=== PATIENT | male | born 1970 | race Two or more races ===

== ENCOUNTER 2020-03-15 16:10 | Outpatient (REF) | payer OTHER, SELFPAY | END 2020-03-15 16:11 | disposition home or self-care (01) | LOC: HO.LAB 16:10 | PROVIDERS: Visit Provider Internal Medicine | DX: Z20.828 Contact with and (suspected) exposure to other viral communicable diseases (principal) | CPT/HCPCS: C9803; U0003 ==

== ENCOUNTER 2020-04-14 09:20 | Outpatient (REF) | payer OTHER, SELFPAY ==
[2020-04-14 10:55] LABS: Estimated Average Glucose 192 mg/dL; Hemoglobin A1c % 8.3 %
[2020-04-14 11:12] LABS: Alanine Aminotransferase 207 U/L (0-40); Albumin Level 4.3 g/dL (3.5-5.0); Alkaline Phosphatase 141 U/L (39-117); Anion Gap 13 (12-20); Aspartate Amino Transferase 100 U/L (5-37); Bilirubin Total 0.9 mg/dL (0.0-1.0); Blood Urea Nitrogen 15 mg/dL (9-16); Calcium 9.4 mg/dL (8.4-10.2); Carbon Dioxide 30 mmol/L (22-29); Chloride 104 mmol/L (96-108); Estimated Glomerular Filt Rate > 60; Glucose Fasting 192 mg/dL (60-99); Potassium 4.6 mmol/l (3.3-5.1); Sodium 142 mmol/L (135-145); Total Protein 7.8 g/dL (6.5-8.0)
== END 2020-04-14 09:21 | disposition home or self-care (01) ==
LOC: HO.LAB 09:20
PROVIDERS: PCP Internal Medicine; Visit Provider Physician Assistant
DX: R63.1 Polydipsia (principal)
CPT/HCPCS: 36415; 80053; 83036

== ENCOUNTER 2020-04-28 03:24 | Emergency (ER) | payer OTHER, SELFPAY ==
--- NOTE | 2020-04-28 03:29 | ECG_ITS ---
Test Reason : ABD PAIN Blood Pressure : / mmHG Vent. Rate : 062 BPM Atrial Rate : 062 BPM P-R Int : 164 ms QRS Dur : 096 ms QT Int : 404 ms P-R-T Axes : 046 -22 001 degrees QTc Int : 410 ms Normal sinus rhythm Inferior infarct , age undetermined Abnormal ECG No previous ECGs available Referred By: Francisca Vail Electronically Signed By:Fahad Lynn
[2020-04-28 04:09] VITALS: BP 159/98; PULSE 63; RESP 15; TEMP 36.6; O2SAT 95; BMI 38.0
--- NOTE | 2020-04-28 04:37 | ED_ITS ---
HPI - Abdominal Pain General Chief Complaint: Abdominal Pain Stated Complaint: ABD PAIN Time Seen by Provider: 04/28/20 03:27 Source: patient Mode of arrival: ambulatory History of Present Illness HPI narrative: This is a 50-year-old male with diabetes, KADEN, obesity, asthma who presents with chronic abdominal discomfort that has not changed in character for weeks/months and is not associated with diarrhea, nausea, vomiting, fevers, chills, and patient denies any shortness of breath/chest pain/palpitations. He does endorse he has a history of cholelithiasis. Patient states that he drinks 12 beers and a couple of shots in a week. Related Data Previous Rx's Medication Instructions Recorded ProAir HFA 90 mcg/actuation 2 puff PO Q6H PRN 30 Days #8.5 g NS 04/12/20 aerosol inhaler fluticasone 232 mcg-salmeterol 14 1 inh PO BID 30 Days #1 ea 04/12/20 mcg/actuation breath activated powdr nicotine (polacrilex) 2 mg gum 2 mg BUCCAL Q2H PRN 30 Days #100 ea 04/12/20 metformin 500 mg tablet 500 mg PO BID 30 Days #60 tab 04/25/20 Allergies Allergy/AdvReac Type Severity Reaction Status Date / Time pollen extracts [POLLEN] Allergy Unknown UNKNOWN Verified 04/12/20 18:28 seafood/shellfish from a Allergy Unknown hives Uncoded 06/28/19 00:00 young seasonal allergies Allergy Unknown Unknown Uncoded 04/12/20 18:28 Review of Systems Review of Systems Pertinent positives and negatives as stated in HPI and 10 point review of systems is otherwise negative. Physical Exam Vital Signs: Vital Signs: Last Vital Signs Temp 98 F 04/28/20 06:00 Pulse 59 04/28/20 06:00 Resp 15 04/28/20 06:00 BP 118/82 04/28/20 06:00 Pulse Ox 97 04/28/20 06:00 Body Mass Index 38.0 VITAL SIGNS: Reviewed. GENERAL: Well developed, well nourished, in no acute distress. HEAD: Normocephalic/atraumatic, EYES: PERRLA, EOMI EARS: Ext canals without abnormality NOSE: Nares patent bilateral OROPHARYNX: no oral lesions noted, posterior pharynx clear and non-erythematous without noted tonsillar enlargement/erythema/exudates NECK: Supple, no adenopathy LUNGS: Normal breath sounds. No adventitious sounds or accessory muscle use. SpO2<95> CARDIOVASCULAR: Regular rate and rhythm without noted murmurs ABDOMEN: Soft, non-tender, non-distended with bowel sounds. No CVA tenderness MUSCULOSKELETAL: No tenderness, deformities, or effusions noted on gross inspection. EXTREMITIES: No cyanosis, clubbing or edema. SKIN: Inspection of the skin reveals no rashes NEUROLOGIC: Alert and oriented x 4. Course Course Course Narrative: This is a 50-year-old male with history and clinical presenta tion consistent with chronic abdominal discomfort and on clinical exam no evidence appreciable hernias, however patient's body habitus limits exam. Will evaluate for evidence of infection, diabetes related etiology/cholecystitis/pancreatitis. Review of all investigations acute findings. This was communicated to the patient at bedside and he was encouraged to continue further evaluation as an ou tpatient with his primary care provider. However, he was reassured to return to the emergency department if he experiences any acute worsening of his symptoms. MDM - Abdominal Pain Lab Data Result diagrams: 04/28/20 04:31 04/28/20 04:31 Labs: Lab Results 04/28/20 04/28/20 04/28/20 Range/Units 04:31 04:31 04:31 WBC 8.2 (4.8-10.8) X10*3/uL RBC 5.44 (4.60-5.80) X10*6/uL Hgb 16.0 (14.0-18.0) g/dl Hct 46.0 (42-52) % MCV 84.6 (80-98) fL MCH 29.4 (27.0-33.0) pg MCHC 34.8 (31.0-36.0) g/dl RDW 12.7 (11.0-16.0) % Plt Count 170 (160-400) X10*3/uL MPV 10.8 (9.4-12.4) fL Immature Gran % (Auto) 0.6 H (0.0-0.4) % Neut % (Auto) 48.4 (45-73) % Lymph % (Auto) 39.9 (20-40) % Concho % (Auto) 8.3 (2-11) % Eos % (Auto) 2.4 (0-4) % Baso % (Auto) 0.4 (0-2) % Lymph # (Auto) 3.3 (1.2-4.9) X10*3/uL [place]cho # (Auto) 0.7 (0.1-1.2) X10*3/uL Eos # (Auto) 0.2 (0.0-0.4) X10*3/uL Baso # (Auto) 0.0 (0.0-0.2) X10*3/uL Abs Immat Gran (auto) 0.05 H (0.00-0.03) X10*3/uL Absolute Neuts (auto) 4.0 (2.0-8.3) X10*3/uL Absolute Nucleated RBC 0.000 (0.0-0.012) X10*3/uL Nucleated RBC % (auto) 0.0 (0.0-0.2) /100WBC Sodium 140 (135-145) mmol/L Potassium 4.0 (3.3-5.1) mmol/l Chloride 105 (96-108) mmol/L Carbon Dioxide 24 (22-29) mmol/L Anion Gap 15 (12-20) BUN 16 (9-16) mg/dL Creatinine 0.87 (0.5-1.4) mg/dL Estim Creat Clear Calc 124.1 Estimated GFR > 60 Random Glucose 260 H (60-115) mg/dL Calcium 8.8 D (8.4-10.2) mg/dL Total Bilirubin 1.0 (0.0-1.0) mg/dL AST 56 H (5-37) U/L ALT 184 H (0-40) U/L Alkaline Phosphatase 131 H (39-117) U/L Troponin I High Sens (<3.5-35.0) ng/L Total Protein 7.4 (6.5-8.0) g/dL Albumin 4.1 (3.5-5.0) g/dL Lipase 48 (8-78) U/L Urine Color Urine Appearance Urine pH (5.0-8.0) Ur Specific Sutton (1.005-1.025) Urine Protein (NEG-TRACE) MG/DL Urine Glucose (UA) (NEG) MG/DL Urine Ketones (NEG) MG/DL Urine Blood (NEG) Urine Nitrite (NEG) Ur Leukocyte Esterase (NEG) Ethyl Alcohol < 10 mg/dL 04/28/20 04/28/20 Range/Units 04:31 04:34 WBC (4.8-10.8) X10*3/uL RBC (4.60-5.80) X10*6/uL Hgb (14.0-18.0) g/dl Hct (42-52) % MCV (80-98) fL MCH (27.0-33.0) pg MCHC (31.0-36.0) g/dl RDW (11.0-16.0) % Plt Count (160-400) X10*3/uL MPV (9.4-12.4) fL Immature Gran % (Auto) (0.0-0.4) % Neut % (Auto) (45-73) % Lymph % (Auto) (20-40) % Concho % (Auto) (2-11) % Eos % (Auto) (0-4) % Baso % (Auto) (0-2) % Lymph # (Auto) (1.2-4.9) X10*3/uL Concho # (Auto) (0.1-1.2) X10*3/uL Eos # (Auto) (0.0-0.4) X10*3/uL Baso # (Auto) (0.0-0.2) X10*3/uL Abs Immat Gran (auto) (0.00-0.03) X10*3/uL Absolute Neuts (auto) (2.0-8.3) X10*3/uL Absolute Nucleated RBC (0.0-0.012) X10*3/uL Nucleated RBC % (auto) (0.0-0.2) /100WBC Sodium (135-145) mmol/L Potassium (3.3-5.1) mmol/l Chloride (96-108) mmol/L Carbon Dioxide (22-29) mmol/L Anion Gap (12-20) BUN (9-16) mg/dL Creatinine (0.5-1.4) mg/dL Estim Creat Clear Calc Estimated GFR Random Glucose (60-115) mg/dL Calcium (8.4-10.2) mg/dL Total Bilirubin (0.0-1.0) mg/dL AST (5-37) U/L ALT (0-40) U/L Alkaline Phosphatase (39-117) U/L Troponin I High Sens 3.5 (<3.5-35.0) ng/L Total Protein (6.5-8.0) g/dL Albumin (3.5-5.0) g/dL Lipase (8-78) U/L Urine Color DARK YELLOW Urine Appearance CLEAR Urine pH 5.5 (5.0-8.0) Ur Specific Sutton >= 1.030 H (1.005-1.025) Urine Protein NEG (NEG-TRACE) MG/DL Urine Glucose (UA) 250 H (NEG) MG/DL Urine Ketones NEG (NEG) MG/DL Urine Blood NEG (NEG) Urine Nitrite NEG (NEG) Ur Leukocyte Esterase NEG (NEG) Ethyl Alcohol mg/dL ECG Data Attestation: I personally reviewed and interpreted this ECG as follows: Prior ECG tracings: not available for review Interpretation: Normal sinus rhythm, HR-62, no evidence of acute ischemia, Q- waves noted in the leads 3/AVF, AZ/QRS/QTC are within normal limits. Discharge Plan Discharge Clinical Impression: Abdominal discomfort Patient Disposition: Home, Self-Care Instructions: Abdominal Pain (ED) Additional Instructions: All home medications as prescribed. Recommend starting [id number] acid control medication, such as Prilosec/Zantac. Continue follow-up with your primary care provider but do not hesitate to return to the emergency department she develops any acute worsening of your symptoms. Prescriptions: No Action metformin 500 mg tablet 500 mg PO BID 30 Days Qty: 60 RF: 1 nicotine (polacrilex) [Nicorette] 2 mg gum 2 mg buccal Q2H PRN (Reason: nicotine cravings) 30 Days Qty: 100 RF: 0 albuterol sulfate [ProAir HFA] 90 mcg/actuation HFA aerosol inhaler 2 puff PO Q6H PRN (Reason: shortness of breath or wheezing) 30 Days Qty: 8.5 RF: 1 fluticasone propion-salmeterol 232-14 mcg/actuation aerosol powdr breath activated 1 inh PO BID 30 Days Qty: 1 RF: 1 Referrals: Po,Ed Mann MD [Primary Care Provider] - 2 days (Re-evaluation for chronic abdominal discomfort and evaluated here in the emergency department without any acute findings.) COUNTS INCLUDE 234 BEDS AT THE [facility] Past Medical History Source: nursing notes reviewed Medical History Alcohol abuse Asthma Fatty liver History of renal calculi Hypercholesterolemia Mood disorder Obesity (BMI 30-39.9) Obstructive sleep apnea Tobacco abuse Vitamin D deficiency Surgical History History of removal of cyst History of tonsillectomy Family History Family History Father CAD (coronary artery disease) CVD (cardiovascular disease) Hypertension Mother Hypertension Maternal Grandfather Colon cancer Maternal Uncle Myocardial infarction Social History Social History Alcohol intake: current Alcohol intake frequency: a few times a month Alcohol type: beer and hard liquor Smoking Status: Current every day smoker Tobacco Type: Cigarette Cigarettes Per Day: 5 Use of substances other than those prescribed or required for medical reasons: No Advance Directives: No
[2020-04-28 04:40] LABS: Basophils Percent Auto 0.4 % (0-2); Eosinophils Absolute Auto 0.2 X10*3/uL (0.0-0.4); Eosinophils Percent Auto 2.4 % (0-4); Imm Gran Abs Auto 0.05 X10*3/uL (0.00-0.03); Imm Gran Pct Auto 0.6 % (0.0-0.4); Lymphocytes Absolute Auto 3.3 X10*3/uL (1.2-4.9); Lymphocytes Percent Auto 39.9 % (20-40); Mean Corpuscular HGB Conc 34.8 g/dl (31.0-36.0); Mean Corpuscular Hemoglobin 29.4 pg (27.0-33.0); Mean Corpuscular Volume 84.6 fL (80-98); Mean Platelet Volume 10.8 fL (9.4-12.4); Monocytes Absolute Auto 0.7 X10*3/uL (0.1-1.2); Monocytes Percent Auto 8.3 % (2-11); Neutrophils Percent Auto 48.4 % (45-73); Platelet Count 170 X10*3/uL (160-400); Red Blood Count 5.44 X10*6/uL (4.60-5.80); Red Cell Distribution Width 12.7 % (11.0-16.0); White Blood Count 8.2 X10*3/uL (4.8-10.8)
[2020-04-28 04:41] LABS: MANUAL DIFF FLAG NO
[2020-04-28 04:42] LABS: Glucose Urine UA 250 MG/DL (NEG); Leukocyte Esterase Urine NEG (NEG); Nitrite Urine NEG (NEG); PH 5.5 (5.0-8.0); Specific Gravity - Urine >= 1.030 (1.005-1.025); Urine Blood NEG (NEG); Urine Ketones NEG (NEG); Urine Protein NEG (NEG-TRACE)
[2020-04-28 04:49] LABS: Appearance Urine CLEAR; Color Urine DARK YELLOW
[2020-04-28 04:58] LABS: Ethanol < 10 mg/dL
[2020-04-28 05:06] LABS: Alanine Aminotransferase 184 U/L (0-40); Albumin Level 4.1 g/dL (3.5-5.0); Alkaline Phosphatase 131 U/L (39-117); Anion Gap 15 (12-20); Aspartate Amino Transferase 56 U/L (5-37); Blood Urea Nitrogen 16 mg/dL (9-16); Calcium 8.8 mg/dL (8.4-10.2); Carbon Dioxide 24 mmol/L (22-29); Chloride 105 mmol/L (96-108); Creatinine Clr Calc Pharmacy 124.1; Estimated Glomerular Filt Rate > 60; Glucose Random 260 mg/dL (60-115); Lipase 48 U/L (8-78); Sodium 140 mmol/L (135-145); Total Protein 7.4 g/dL (6.5-8.0)
--- NOTE | 2020-04-28 05:17 | CT_ITS ---
EXAMINATION: CT ABDOMEN AND PELVIS WITH CONTRAST CLINICAL INFORMATION: Abdominal pain COMPARISON: 01/24/2010 TECHNIQUE: Multidetector volumetric images were obtained from the superior aspect of the liver through the pubic symphysis following administration 85 mL of Omnipaque 350 intravenous contrast. Sagittal and coronal reformatted images were obtained on the technologist's workstation. Oral contrast: No This CT examination was performed using dose optimization techniques as appropriate, variously including the following: *Automated exposure control *Adjustment of mA and/or kV according to patient size (this includes techniques or standardized protocols for targeted exams where dose is matched to indication/reason for exam; i.e. extremities or head) *Use of iterative reconstruction technique DLP: 793 mGy-cm FINDINGS: LUNG BASES: Mild bibasilar atelectasis. LIVER, GALLBLADDER, AND BILIARY TREE: The liver is enlarged and demonstrates hypoattenuation suspicious for steatosis. No focal hepatic lesion or biliary ductal dilatation is present. Redemonstrated nodular focus at the gallbladder fundus suggesting adenomyomatosis. PANCREAS: Unremarkable. SPLEEN: Borderline enlarged. ADRENAL GLANDS: Unremarkable. KIDNEYS AND URETERS: The kidneys are normal in size, shape, and attenuation. No hydronephrosis, hydroureter, or obstructing calculi seen. No perinephric stranding. BLADDER: Unremarkable. GASTROINTESTINAL TRACT: The small and large bowel are unremarkable. The appendix is unremarkable. No free fluid or free air is seen. ABDOMINAL WALL: No significant hernia is appreciated. LYMPH NODES: Normal. VASCULAR: Unremarkable. PELVIC VISCERA: The prostate gland is enlarged, measuring 5.5 cm in transverse diameter. OSSEOUS STRUCTURES: Unremarkable. CT/CT abdomen pelvis w con IMPRESSION: No acute abnormality identified in the abdomen/pelvis. Chronic findings as noted above.
[2020-04-28 05:24] LABS: Troponin-I High Sensitivity 3.5 ng/L (<3.5-35.0)
[2020-04-28] MEDS: diphenhydrAMINE HCL 50 MG/ML VIAL 25 MG IVPUSH (05:27)
[2020-04-28] MEDS: iohexoL 350 MG/ML 100 ML INFUS..BTL 85 ML IV (05:46)
[2020-04-28 06:00] VITALS: BP 118/82; PULSE 59; RESP 15; TEMP 36.6; O2SAT 97
[2020-04-28] MEDS: Lidocaine HCl Viscous 2 % 15 ML SOLUTION 10 ML MUCOUS MEM (06:35)
[2020-04-28] MEDS: Magnesium Hydrox/Alum Hydrox 30 ML ORAL.SUSP PO (06:35)
== END 2020-04-28 06:54 | disposition home or self-care (01) ==
PROVIDERS: Emergency Provider Student in an Organized Health Care Education/Training Program; PCP Internal Medicine
DX: R10.9 Unspecified abdominal pain (principal); G47.33 Obstructive sleep apnea (adult) (pediatric); Z79.899 Other long term (current) drug therapy
CPT/HCPCS: 36415; 74177; 80053; 80320; 81003; 83690; 84484; 85025; 93005; 96374; 99284; J1200; Q9967

== ENCOUNTER 2021-03-27 08:40 | Outpatient (REF) | payer OTHER, SELFPAY ==
[2021-03-27 08:57] LABS: MANUAL DIFF FLAG NO
[2021-03-27 09:19] LABS: Basophils Percent Auto 0.3 % (0-2); Eosinophils Absolute Auto 0.4 X10*3/uL (0.0-0.4); Eosinophils Percent Auto 4.7 % (0-4); Hematocrit 49.3 % (42.0-52.0); Hemoglobin 17.3 g/dl (14.0-18.0); Imm Gran Abs Auto 0.04 X10*3/uL (0.00-0.03); Imm Gran Pct Auto 0.5 % (0.0-0.4); Lymphocytes Absolute Auto 3.1 X10*3/uL (1.2-4.9); Lymphocytes Percent Auto 40.6 % (20-40); Mean Corpuscular HGB Conc 35.1 g/dl (31.0-36.0); Mean Corpuscular Hemoglobin 29.6 pg (27.0-33.0); Mean Corpuscular Volume 84.4 fL (80.0-98.0); Mean Platelet Volume 11.2 fL (9.4-12.4); Monocytes Absolute Auto 0.7 X10*3/uL (0.1-1.2); Monocytes Percent Auto 9.2 % (2-11); Neutrophils Absolute Auto 3.5 x10*3/uL (2.0-8.3); Neutrophils Percent Auto 44.7 % (45-73); Platelet Count 221 X10*3/uL (160-400); Red Blood Count 5.84 X10*6/uL (4.60-5.80); Red Cell Distribution Width 12.7 % (11.0-16.0); White Blood Count 7.7 X10*3/uL (4.8-10.8)
[2021-03-27 09:29] LABS: Estimated Average Glucose 246 mg/dL; Hemoglobin A1c % 10.2 %
[2021-03-27 09:53] LABS: Alanine Aminotransferase 179 U/L (0-40); Albumin Level 4.2 g/dL (3.5-5.0); Alkaline Phosphatase 127 U/L (39-117); Anion Gap 14 (12-20); Aspartate Amino Transferase 59 U/L (5-37); Bilirubin Total 0.7 mg/dL (0.0-1.0); Blood Urea Nitrogen 15 mg/dL (9-16); Calcium 9.9 mg/dL (8.4-10.2); Carbon Dioxide 27 mmol/L (22-29); Chloride 104 mmol/L (96-108); Cholesterol 271 mg/dL; Estimated Glomerular Filt Rate > 60; Glucose Random 238 mg/dL (60-115); HDL Cholesterol 30 mg/dL; Potassium 4.2 mmol/L (3.3-5.1); Sodium 141 mmol/L (135-145); Total Protein 7.6 g/dL (6.5-8.0); Triglycerides 736 mg/dL
[2021-03-27 10:09] LABS: Free T4 (Free Thyroxine) 1.07 ng/dL (0.71-1.85); Prostate Specific Antigen Scr 0.86 ng/mL (<0.05-4.0); Thyroid Stimulating Hormone 1.82 uIU/mL (0.32-4.0)
[2021-03-27 10:23] LABS: Folate 14.3 ng/mL (> or = 4.0); Vitamin B12 882 pg/mL (200-900)
[2021-03-27 11:49] LABS: Creatinine Urine 356.95 mg/dL; Microalbum/Creatinine Ratio Ur 27.4 ug/mg cr
== END 2021-03-27 08:41 | disposition home or self-care (01) ==
LOC: HO.LAB 08:40
PROVIDERS: Nurse Practitioner Acute Care; PCP Internal Medicine; Visit Provider Internal Medicine
DX: E11.65 Type 2 diabetes mellitus with hyperglycemia (principal); E78.00 Pure hypercholesterolemia, unspecified; E11.9 Type 2 diabetes mellitus without complications; Z12.5 Encounter for screening for malignant neoplasm of prostate
CPT/HCPCS: 36415; 80053; 80061; 82043; 82607; 82746; 83036; 84153; 84439; 84443; 85025

== ENCOUNTER 2022-04-29 07:18 | Outpatient (REF) | payer OTHER, SELFPAY ==
[2022-04-29 07:37] LABS: MANUAL DIFF FLAG NO
[2022-04-29 08:05] LABS: Basophils Percent Auto 0.4 % (0-2); Eosinophils Absolute Auto 0.3 X10*3/uL (0.0-0.4); Eosinophils Percent Auto 3.4 % (0-4); Hematocrit 45.3 % (42.0-52.0); Hemoglobin 15.6 g/dl (14.0-18.0); Imm Gran Abs Auto 0.04 X10*3/uL (0.00-0.03); Imm Gran Pct Auto 0.5 % (0.0-0.4); Lymphocytes Percent Auto 36.3 % (20-40); Mean Corpuscular HGB Conc 34.4 g/dl (31.0-36.0); Mean Corpuscular Hemoglobin 28.7 pg (27.0-33.0); Mean Corpuscular Volume 83.4 fL (80.0-98.0); Mean Platelet Volume 10.6 fL (9.4-12.4); Monocytes Absolute Auto 1.1 X10*3/uL (0.1-1.2); Monocytes Percent Auto 12.9 % (2-11); Neutrophils Absolute Auto 3.9 x10*3/uL (2.0-8.3); Neutrophils Percent Auto 46.5 % (45-73); Platelet Count 283 X10*3/uL (160-400); Red Blood Count 5.43 X10*6/uL (4.60-5.80); Red Cell Distribution Width 12.6 % (11.0-16.0); White Blood Count 8.3 X10*3/uL (4.8-10.8)
[2022-04-29 08:59] LABS: Creatinine Urine 218.53 mg/dL; Microalbum/Creatinine Ratio Ur 35.6 ug/mg cr
[2022-04-29 09:01] LABS: Alanine Aminotransferase 107 U/L (0-40); Albumin Level 3.9 g/dL (3.5-5.0); Alkaline Phosphatase 114 U/L (39-117); Anion Gap 14 (12-20); Aspartate Amino Transferase 53 U/L (5-37); Bilirubin Total 0.7 mg/dL (0.0-1.0); Blood Urea Nitrogen 10 mg/dL (9-16); Calcium 9.9 mg/dL (8.4-10.2); Carbon Dioxide 25 mmol/L (22-29); Chloride 107 mmol/L (96-108); Cholesterol 178 mg/dL; Estimated Glomerular Filt Rate > 60; Glucose Random 197 mg/dL (60-115); HDL Cholesterol 29 mg/dL; LDL Cholesterol Calculated 85 mg/dl; Sodium 142 mmol/L (135-145); Total Protein 7.5 g/dL (6.5-8.0); Triglycerides 322 mg/dL
[2022-04-29 09:32] LABS: Folate 13.3 ng/mL (> or = 4.0); Free T4 (Free Thyroxine) 1.03 ng/dL (0.71-1.85); Prostate Specific Antigen Scr 1.12 ng/mL (<0.05-4.0); Thyroid Stimulating Hormone 1.78 uIU/mL (0.32-4.0); Vitamin B12 893 pg/mL (200-900)
== END 2022-04-29 07:19 | disposition home or self-care (01) ==
LOC: HO.LAB 07:18
PROVIDERS: PCP Internal Medicine; Visit Provider Internal Medicine
DX: Z12.5 Encounter for screening for malignant neoplasm of prostate (principal); E11.65 Type 2 diabetes mellitus with hyperglycemia; E78.00 Pure hypercholesterolemia, unspecified
CPT/HCPCS: 36415; 80053; 80061; 82043; 82607; 82746; 84153; 84439; 84443; 85025

== ENCOUNTER 2022-09-27 07:24 | Outpatient (REF) | payer OTHER, SELFPAY ==
[2022-09-27 07:40] LABS: MANUAL DIFF FLAG NO
[2022-09-27 08:15] LABS: Basophils Percent Auto 0.3 % (0-2); Eosinophils Absolute Auto 0.3 X10*3/uL (0.0-0.4); Eosinophils Percent Auto 3.2 % (0-4); Hematocrit 48.2 % (42.0-52.0); Hemoglobin 16.8 g/dl (14.0-18.0); Imm Gran Abs Auto 0.03 X10*3/uL (0.00-0.03); Imm Gran Pct Auto 0.3 % (0.0-0.4); Lymphocytes Absolute Auto 3.2 X10*3/uL (1.2-4.9); Lymphocytes Percent Auto 31.7 % (20-40); Mean Corpuscular HGB Conc 34.9 g/dl (31.0-36.0); Mean Corpuscular Hemoglobin 29.9 pg (27.0-33.0); Mean Corpuscular Volume 85.8 fL (80.0-98.0); Mean Platelet Volume 10.1 fL (9.4-12.4); Monocytes Percent Auto 10.3 % (2-11); Neutrophils Absolute Auto 5.5 x10*3/uL (2.0-8.3); Neutrophils Percent Auto 54.2 % (45-73); Platelet Count 234 X10*3/uL (160-400); Red Blood Count 5.62 X10*6/uL (4.60-5.80)
[2022-09-27 08:28] LABS: Estimated Average Glucose 94 mg/dL; Hemoglobin A1C 137.3436 umol/L; Hemoglobin A1c % 4.9 %
[2022-09-27 09:23] LABS: Creatinine Urine 163.44 mg/dL; Microalbum/Creatinine Ratio Ur 9.1 ug/mg cr
[2022-09-27 09:26] LABS: Alanine Aminotransferase 44 U/L (0-40); Albumin Level 4.2 g/dL (3.5-5.0); Alkaline Phosphatase 80 U/L (39-117); Anion Gap 13 (12-20); Aspartate Amino Transferase 27 U/L (5-37); Bilirubin Total 1.1 mg/dL (0.0-1.0); Blood Urea Nitrogen 15 mg/dL (9-16); Carbon Dioxide 25 mmol/L (22-29); Chloride 109 mmol/L (96-108); Cholesterol 222 mg/dL; Estimated Glomerular Filt Rate > 60; Glucose Random 108 mg/dL (60-115); HDL Cholesterol 35 mg/dL; LDL Cholesterol Calculated 148 mg/dl; Potassium 4.6 mmol/L (3.3-5.1); Sodium 142 mmol/L (135-145); Total Protein 7.8 g/dL (6.5-8.0); Triglycerides 195 mg/dL
[2022-09-27 09:44] LABS: Free T4 (Free Thyroxine) 0.95 ng/dL (0.71-1.85); Thyroid Stimulating Hormone 1.39 uIU/mL (0.32-4.0)
[2022-09-27 09:56] LABS: Folate 12.3 ng/mL (> or = 4.0); Vitamin B12 554 pg/mL (200-900)
== END 2022-09-27 07:25 | disposition home or self-care (01) ==
LOC: HO.LAB 07:24
PROVIDERS: PCP Internal Medicine; Visit Provider Internal Medicine
DX: E11.65 Type 2 diabetes mellitus with hyperglycemia (principal); E78.00 Pure hypercholesterolemia, unspecified
CPT/HCPCS: 36415; 80053; 80061; 82043; 82607; 82746; 83036; 84153; 84439; 84443; 85025

== ENCOUNTER 2022-09-28 10:06 | Emergency (ER) | payer OTHER, SELFPAY ==
[2022-09-28 10:12] VITALS: BP 136/98; PULSE 83; RESP 18; TEMP 36.6; O2SAT 98; BMI 31.9
--- NOTE | 2022-09-28 10:40 | ED.GENADULT ---
HPI - General Adult General Chief complaint: General Medical Stated complaint: ear and throat pain Time Seen by Provider: 09/28/22 10:30 Source: patient Mode of arrival: ambulatory Limitations: no limitations History of Present Illness HPI narrative: Patient is a 52-year-old male with history of tonsillectomy, hypertension, asthma, T2 dm, smoking, GERD presenting to the emergency department with 2 days of worsening sore throat. Patient states pain is all on left side and has began to radiate to his left ear. Has taken ibuprofen at home with little relief. Denies fevers. Denies cough or shortness of breath. Denies any low congestion or headache. Reports increased pain with swallowing. MD complaint: sore throat Onset (ago): day(s) Location: neck Radiation: other (left ear) Severity scale (1-10): 8 Quality: burning Pain Consistency: constant Relieving factors: none Exacerbating factors: eating and movement Associated symptoms: denies other symptoms Treatments prior to arrival: NSAID Related Data Previous Rx's Medication Instructions Recorded flash glucose scanning reader #1 ea 05/12/20 (FreeStyle Ole 14 Day Antelope) nicotine (polacrilex) 2 mg gum 2 mg PO Q2H PRN for nicotine 07/10/20 cravings #100 caps flash glucose sensor (FreeStyle #6 kits 04/05/21 Ole 14 Day Sensor kit) blood sugar diagnostic (FreeStyle #100 ea 04/27/21 Lite Strips) blood-glucose meter (FreeStyle #1 ea 04/27/21 Lite Meter kit) dulaglutide 1.5 mg/0.5 mL 1.5 mg (0.5 mL) subcut QWEEK 30 04/26/22 subcutaneous pen injector days #2 mL famotidine 20 mg tablet (Pepcid) 20 mg PO BEDTIME 90 days #90 tabs 04/26/22 lancets 28 gauge (FreeStyle #100 ea 04/26/22 Lancets) lisinopril 5 mg tablet 5 mg PO DAILY #90 tabs 04/26/22 metformin 500 mg tablet 1,000 mg PO BID 90 days #360 tabs 04/26/22 fluticasone 250 mcg-salmeterol 50 1 inh inhalation BID #60 ea 06/28/22 mcg/dose blistr powdr for inhalation (Advair Diskus) albuterol sulfate 90 mcg/actuation 2 puff PO Q6H PRN for wheezing #18 08/14/22 aerosol inhaler (Ventolin HFA) ea Allergies Allergy/AdvReac Type Severity Reaction Status Date / Time seafood Allergy Severe Hives Verified 09/28/22 10:12 pollen extracts [POLLEN] Allergy Unknown UNKNOWN Verified 09/28/22 10:12 seasonal allergies Allergy Unknown Unknown Uncoded 09/28/22 10:12 Review of Systems Review of Systems: As per HPI. Yes all other systems are reviewed and are negative Constitutional: Constitutional: Reports as per HPI PMFSH Past Medical History Medical History Alcohol abuse Asthma DMII (diabetes mellitus, type 2) Fatty liver History of renal calculi Hypercholesterolemia Mood disorder Obesity (BMI 30-39.9) Obstructive sleep apnea Tobacco abuse Vitamin D deficiency Surgical History History of removal of cyst History of tonsillectomy Family History Family History Father CAD (coronary artery disease) CVD (cardiovascular disease) Hypertension Mother Hypertension Maternal Grandfather Colon cancer Maternal Uncle Myocardial infarction Social History Social History Housing: Apartment Alcohol intake: current Alcohol intake frequency: a few times a month Alcohol type: beer and hard liquor Patient Tobacco Use Status: Current everyday Tobacco user Tobacco use type: Cigarette Cigarettes Per Day: 8 Years Smoked: 6- cigarettes a day once a week e-Cigarette/Vaping Use: Never Used Second Hand Smoke Exposure: No Advance Directives: No Advance Directives Information Provided: Yes Current occupational status: employed Cognitive needs: No Hearing needs: No Vision needs: No Physical Exam ED Vital Signs: Vital Signs - 24 hr 09/28/22 10:12 09/28/22 13:43 09/28/22 15:22 Temperature 98 F 97.5 F Pulse Rate 83 76 59 Respiratory Rate 18 18 17 Blood Pressure 136/98 H 140/89 H 99/69 Pulse Oximetry 98 96 96 Oxygen Delivery Method Room Air Room Air Room Air BMI result Body Mass Index 31.9 Vital signs have been reviewed and appear to be correct. Blood pressure slightly elevated, hx of HTN. Heart rate normal. Respiratory rate normal. Temperature normal. Oxygen saturation normal. Const General: cooperative, healthy appearing and no acute distress Orientation/consciousness: oriented to person, oriented to place, oriented to time and patient oriented x3 Limitations: no limitations HENMT Head: Yes normocephalic and Yes atraumatic Ears: external ears normal, TM's normal bilaterally and EAC's normal General nose exam: Normal external nose present Face and sinus: Yes face symmetric Mouth: oropharynx normal, moist mucous membranes and tongue abnormal with white coating Throat: Yes uvula midline, Yes posterior oropharynx abnormal (left peritonsillar edema), Yes tonsils absent and No uvular edema Eyes Pupils: Equal, round and reactive pupils present Neck Neck: Yes normal visual inspection, Yes supple and Yes submandibular swelling (left) Lymphatic: lymphadenopathy left submandibular soft and tender Resp Effort & Inspection: normal respiratory effort and able to speak in complete sentences Auscultation: clear to auscultation bilaterally Cardio Rate: regular rate Rhythm: regular rhythm Heart sounds: S1 normal heart sound present and S2 normal heart sound present GI Palpation (GI): Soft to palpation and nontender Auscultation: normoactive bowel sounds General: Yes no CVA tenderness Back/Spine/Pelvis Back: no CVA tenderness Skin General skin exam: elasticity normal and turgor normal Neuro General: oriented to person, oriented to place, oriented to time, patient oriented x3, moves all extremities, no focal motor deficits and CN's II-XI intact bilaterally Cranial nerves: Yes Equal, round and reactive pupils present Cognition (Neuro): normal cognition Extrem General: Yes full ROM, Yes no pedal edema and Yes no calf tenderness Psych Mental Status: mental status grossly normal Affect: normal affect Thought process: Normal thought process present Medications Administered Discontinued Medications Generic Name Dose Route Start Last Admin Trade Name Freq PRN Reason Stop Dose Admin Iohexol 100 ml 09/28/22 11:40 09/28/22 11:41 Iohexol 350 Mg/Ml 100 Ml Infus..Btl IV 09/28/22 11:41 60 ml ONCE ONE Administration Ketorolac Tromethamine 30 mg 09/28/22 13:00 09/28/22 13:03 Ketorolac Tromethamine 30 Mg/Ml Vial IM 09/28/22 13:01 30 mg ONCE ONE Administration Medical Decision Making Medical Decision Making [facility] Narrative: Patient is a 52-year-old male with history of tonsillectomy, hypertension, asthma, T2 dm, smoking, GERD presenting to the emergency department with 2 days of worsening sore throat. On exam patient is awake, A+Ox3, BP mildly elevated, hx of HTN, VS otherwise WNL, afebrile, normal neurological exam without focal deficits, edema to left posterior oropharynx, left submandibular lymphadenopathy and tenderness, voice muffled, patient managing secretions, no uvula deviation. Given reported symptoms and physical exam findings, differential includes peritonsillar abscess, Clark's angina, strep pharyngitis, viral pharyngitis. Unlikely epiglottitis, mono. Labs notable for leukocytosis compared to labs drawn yesterday. CT notable for small left peritonsillar abscess and probable small retropharyngeal effusion. My interpretation is in agreement with the radiologist's interpretation. 13:15 Spoke with [facility] transfer line, they are unable to accept transfer at this time. 13:25 Spoke with [facility] transfer line, they are unable to accept transfer at this time due to capacity. 13:30 Spoke with [facility] ED, awaiting return call. 14:00 No return call from [facility] yet, will call [facility] transfer line. 16:11 Spoke with Mrau at [facility], patient accepted to the emergency department, Dr. Abundio Mishra is accepting MD. Patient updated on plan. [facility] notified of transfer. 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 Leukocytosis since labs drawn yesterday. 09/28/22 11:00 09/28/22 11:00 Labs: Lab Results 09/28/22 09/28/22 09/28/22 Range/Units 10:19 10:19 11:00 WBC 13.8 H (4.8-10.8) X10*3/uL RBC 6.01 H (4.60-5.80) X10*6/uL Hgb 17.9 (14.0-18.0) g/dl Hct 51.0 (42.0-52.0) % MCV 84.9 (80.0-98.0) fL MCH 29.8 (27.0-33.0) pg MCHC 35.1 (31.0-36.0) g/dl RDW 12.8 (11.0-16.0) % Plt Count 250 (160-400) X10*3/uL MPV 9.8 (9.4-12.4) fL Immature Gran % (Auto) 0.4 (0.0-0.4) % Neut % (Auto) 66.1 (45-73) % Lymph % (Auto) 22.0 (20-40) % Spalding % (Auto) 10.3 (2-11) % Eos % (Auto) 0.9 (0-4) % Baso % (Auto) 0.3 (0-2) % Lymph # (Auto) 3.0 (1.2-4.9) X10*3/uL [place]ding # (Auto) 1.4 H (0.1-1.2) X10*3/uL Eos # (Auto) 0.1 (0.0-0.4) X10*3/uL Baso # (Auto) 0.0 (0.0-0.2) X10*3/uL Abs Immat Gran (auto) 0.05 H (0.00-0.03) X10*3/uL Absolute Neuts (auto) 9.1 H (2.0-8.3) x10*3/uL Absolute Nucleated RBC 0.000 (0.0-0.012) X10*3/uL Nucleated RBC % (auto) 0.0 (0.0-0.2) /100WBC Sodium (135-145) mmol/L Potassium (3.3-5.1) mmol/L Chloride (96-108) mmol/L Carbon Dioxide (22-29) mmol/L Anion Gap (12-20) BUN (9-16) mg/dL Creatinine (0.5-1.4) mg/dL Estim Creat Clear Calc Estimated GFR Random Glucose (60-115) mg/dL Calcium (8.4-10.2) mg/dL COVID-19 (JUANCARLOS) Negative (Negative) COVID-19 Clin Com See Note S. pyogenes GrpA LORNA Negative (Negative) 09/28/22 Range/Units 11:00 WBC (4.8-10.8) X10*3/uL RBC (4.60-5.80) X10*6/uL Hgb (14.0-18.0) g/dl Hct (42.0-52.0) % MCV (80.0-98.0) fL MCH (27.0-33.0) pg MCHC (31.0-36.0) g/dl RDW (11.0-16.0) % Plt Count (160-400) X10*3/uL MPV (9.4-12.4) fL Immature Gran % (Auto) (0.0-0.4) % Neut % (Auto) (45-73) % Lymph % (Auto) (20-40) % Spalding % (Auto) (2-11) % Eos % (Auto) (0-4) % Baso % (Auto) (0-2) % Lymph # (Auto) (1.2-4.9) X10*3/uL Spalding # (Auto) (0.1-1.2) X10*3/uL Eos # (Auto) (0.0-0.4) X10*3/uL Baso # (Auto) (0.0-0.2) X10*3/uL Abs Immat Gran (auto) (0.00-0.03) X10*3/uL Absolute Neuts (auto) (2.0-8.3) x10*3/uL Absolute Nucleated RBC (0.0-0.012) X10*3/uL Nucleated RBC % (auto) (0.0-0.2) /100WBC Sodium 140 (135-145) mmol/L Potassium 4.1 (3.3-5.1) mmol/L Chloride 108 (96-108) mmol/L Carbon Dioxide 23 (22-29) mmol/L Anion Gap 13 (12-20) BUN 13 (9-16) mg/dL Creatinine 0.92 (0.5-1.4) mg/dL Estim Creat Clear Calc 105.1 Estimated GFR > 60 Random Glucose 116 H (60-115) mg/dL Calcium 10.4 H (8.4-10.2) mg/dL COVID-19 (JUANCARLOS) (Negative) COVID-19 Clin Com S. pyogenes GrpA LORNA (Negative) Independent Interpretation I performed an independent interpretation of an: CT Scan Interpretation: Small left peritonsillar abscess Radiology Impression Discussion of test interpretation with radiology: I have reviewed the radiologist's reading. Radiologist Impression: CT/CT soft tissue neck w IV con IMPRESSION: Imaging findings consistent with a small left peritonsillar abscess. Surrounding phlegmonous changes and inflammatory enlargement of the left oropharyngeal wall. Extensive submucosal edema along the left pharyngeal wall and left lateral wall of the supraglottic airway. Probable small retropharyngeal effusion, without mass effect or peripheral enhancement. Mild reactive left-sided cervical adenopathy. External Record Review External record reviewed: Inpatient record, Office record and Outpatient record Prescription Management I considered prescription management with: Pain Medication Critical Care Time Critical Care Time Critical Care Time: Yes Total Critical Care Time: 45 Attestation: I have personally provided critical care time exclusive of time spent on separately billable procedures. Time includes review of lab data, radiology results, discussion with consultants, and monitoring for potential decompensation. Intervention performed as documented. Discharge Plan Discharge Clinical Impression: Abscess, peritonsillar Patient Disposition: [facility] Transfer Details: [facility] ED, Dr. Abundio Mishra accepting Prescriptions: No Action nicotine (polacrilex) 2 mg gum 2 mg PO Q2H PRN (Reason: for nicotine cravings) Qty: 100 2RF (DME) FreeStyle Ole 14 Day Sensor Kit See Rx Instructions .ROUTE .MEDSUPPLY Qty: 6 3RF Rx Instructions: As directed fluticasone propion-salmeterol [Advair Diskus] 250-50 mcg/dose blister with device 1 inh inhalation BID Qty: 60 11RF albuterol sulfate [Ventolin HFA] 90 mcg/actuation HFA aerosol inhaler 2 puff PO Q6H PRN (Reason: for wheezing) Qty: 18 2RF (DME) FreeStyle Ole 14 Day Antelope Misc See Rx Instructions .ROUTE .MEDSUPPLY Qty: 1 0RF Rx Instructions: As directed (DME) FreeStyle Lite Strips Strip See Rx Instructions .ROUTE .MEDSUPPLY Qty: 100 3RF Rx Instructions: As directed check the BS QD (DME) blood-glucose meter [FreeStyle Lite Meter] Kit See Rx Instructions .ROUTE .MEDSUPPLY Qty: 1 0RF Rx Instructions: As directed dulaglutide 1.5 mg/0.5 mL pen injector 1.5 mg subcut QWEEK 30 Days Qty: 2 3RF famotidine [Pepcid] 20 mg tablet 20 mg PO BEDTIME 90 Days Qty: 90 1RF lisinopril 5 mg tablet 5 mg PO DAILY Qty: 90 0RF metformin 500 mg tablet 1,000 mg PO BID 90 Days Qty: 360 2RF (DME) lancets [FreeStyle Lancets] 28 gauge misc See Rx Instructions .ROUTE .MEDSUPPLY Qty: 100 3RF Rx Instructions: As directed check BS QD
--- NOTE | 2022-09-28 13:10 | PC.NURSE ---
pt medicated per MAY for 01/07 throat pain
[2022-09-28 13:43] VITALS: BP 140/89; PULSE 76; RESP 18; O2SAT 96
[2022-09-28 15:22] VITALS: BP 99/69; PULSE 59; RESP 17; TEMP 36.4; O2SAT 96
--- NOTE | 2022-09-28 16:49 | PC.NURSE ---
rec call from Sourav aj [place],still attempting to locate [facility] for transport to [facility]
[2022-09-28 17:49] VITALS: BP 117/76; PULSE 59; RESP 17; TEMP 37.1; O2SAT 96
--- NOTE | 2022-09-28 18:25 | PC.NURSE ---
report given to Kia COLE at [facility] ED pt transferred via memo [facility]
== END 2022-09-28 18:28 | disposition short-term general hospital (02) ==
PROVIDERS: Emergency Provider Emergency Medicine Emergency Medical Services; PCP Internal Medicine
DX: J36 Peritonsillar abscess (principal); Z20.822 Contact with and (suspected) exposure to COVID-19; E11.9 Type 2 diabetes mellitus without complications; I10 Essential (primary) hypertension; E78.00 Pure hypercholesterolemia, unspecified; F17.210 Nicotine dependence, cigarettes, uncomplicated; Z79.899 Other long term (current) drug therapy
CPT/HCPCS: 36415; 70491; 80048; 85025; 87635; 87651; 96372; 99285; J1885; Q9967

== ENCOUNTER 2023-07-29 21:01 | Inpatient (IN) | payer OTHER, SELFPAY ==
[2023-07-29 21:09] VITALS: BP 136/90; BP 159/101; PULSE 95; RESP 18; TEMP 36.6; O2SAT 95; BMI 32.5
--- NOTE | 2023-07-29 21:35 | ED_ITS ---
HPI - Psych General Chief Complaint: Psychiatric Symptoms Stated Complaint: SI W/ PLAN Time Seen by Provider: 07/29/23 21:20 Source: patient Mode of arrival: ambulatory Limitations: no limitations History of Present Illness HPI Narrative: Patient comes to the emergency room via EMS and PD on board. According to the patient, he had an argument with his , they have been for 27 years and patient states that she does not love them anymore. Patient states that he wanted to test her reaction to a suicidal threat. Patient states that he drank alcohol, pull his gun out without any bullets, pointed to his head. Patient has called 911. Patient states that he would not have shot himself or hurt her in any way. It was just a test according to the patient. Related Data Previous Rx's ?Medication ?Instructions ?Recorded flash glucose scanning reader #1 ea 05/12/20 (FreeStyle Ole 14 Day Rumsey) nicotine (polacrilex) 2 mg gum 2 mg PO Q2H PRN for nicotine 07/10/20 cravings #100 caps flash glucose sensor (FreeStyle #6 kits 04/05/21 Ole 14 Day Sensor kit) blood sugar diagnostic (FreeStyle #100 ea 04/27/21 Lite Strips) blood-glucose meter (FreeStyle #1 ea 04/27/21 Lite Meter kit) lancets 28 gauge (FreeStyle #100 ea 04/26/22 Lancets) fluticasone 250 mcg-salmeterol 50 1 inh inhalation BID #60 ea 06/28/22 mcg/dose blistr powdr for inhalation (Advair Diskus) famotidine 20 mg tablet (Pepcid) 20 mg PO BEDTIME 90 days #90 tabs 10/18/22 lisinopril 5 mg tablet 5 mg PO DAILY #90 tabs 10/18/22 albuterol sulfate 90 mcg/actuation 2 puff PO Q6H PRN for wheezing #18 12/16/22 aerosol inhaler (Ventolin HFA) ea dulaglutide 1.5 mg/0.5 mL 1.5 mg (0.5 mL) subcut QWEEK 30 12/16/22 subcutaneous pen injector days #2 mL metformin 500 mg tablet 1,000 mg (2 x 500 mg) PO BID 90 01/16/23 days #360 tabs Allergies Allergy/AdvReac Type Severity Reaction Status Date / Time seafood Allergy Severe Hives Verified 07/29/23 21:14 pollen extracts [POLLEN] Allergy Unknown UNKNOWN Verified 07/29/23 21:14 seasonal allergies Allergy Unknown Unknown Uncoded 07/29/23 21:14 Review of Systems Review of Systems: Constitutional : No Weight loss, No Fever, No Chills, No Night Sweats, No Fatigue, No Malaise ENT/Mouth : No Hearing loss, No Ear Pain, No Nasal Congestion, No Sinus Pain, No Hoarseness, No sore throat, No Rhinorrhea, No Swallowing Difficulty Eyes: No Eye Pain, No Swelling, No Redness, No Foreign Body, No Discharge, No Vision Changes Cardiovascular : No Chest Pain, No SOB, No Dyspnea on Exertion, No Orthopnea, No Edema, No Palpitations Respiratory : No Cough, No Sputum, No Wheezing, No Smoke Exposure, No Dyspnea Gastrointestinal : No Nausea, No Vomiting, No Diarrhea, No Constipation, No abdominal Pain, No Hematochezia, No Melena Genitourinary : no irregular bleeding, No Dysuria, No Urinary Frequency, No Hematuria, No Urinary Incontinence, No Urgency, No Flank Pain, No Urinary Flow Changes, No Hesitancy Musculoskeletal : No joint pain, No Myalgias, No Joint Swelling Skin : No Skin Lesions, No rash Neuro : No Weakness, No Numbness, No Paresthesias, No Loss of Consciousness, No Dizziness, No Headache Psych : No Anxiety/Panic, No Depression, No SI/HI/AH/VH, maritial anxious, suicide threat Heme/Lymph: No Bruising, No Bleeding,No Lymphadenopathy Endocrine : No Polyuria, No Polydipsia, No Temperature Intolerance [facility] Past Medical History Medical History DMII (diabetes mellitus, type 2) History of renal calculi Obstructive sleep apnea Fatty liver Vitamin D deficiency Obesity (BMI 30-39.9) Mood disorder Asthma Hypercholesterolemia Alcohol abuse Tobacco abuse Surgical History History of removal of cyst History of tonsillectomy Family History Family History Father CAD (coronary artery disease) CVD (cardiovascular disease) Hypertension Mother Hypertension Maternal Grandfather Colon cancer Maternal Uncle Myocardial infarction Social History Social History Housing: Apartment Alcohol intake: current Alcohol intake frequency: a few times a month Alcohol type: beer and hard liquor Patient Tobacco Use Status: Current everyday Tobacco user Tobacco use type: Cigarette Cigarettes Per Day: 8 Years Smoked: 6- cigarettes a day once a week e-Cigarette/Vaping Use: Never Used Second Hand Smoke Exposure: No Do you have a plan to hurt others: No Plan Current occupational status: employed Cognitive needs: No Hearing needs: No Vision needs: No Physical Exam Vital Signs: Vital Signs: Last Vital Signs Temp 97.9 F 07/29/23 21:09 Pulse 95 07/29/23 21:09 Resp 18 07/29/23 21:09 BP 159/101 H 07/29/23 21:09 Pulse Ox 95 07/29/23 21:09 O2 Del Method Room Air 07/29/23 21:09 BMI result Body Mass Index 32.5 Const: Other: Appearance: Alert. Oriented X3. No acute distress. Eyes: Pupils equal, round and reactive to light. ENT: Pharynx normal. Neck: Normal inspection. Neck supple. No lymph nodes noted. No crepitus CVS: Normal heart rate and rhythm. Pulses normal. Normal S1 and S2 Respiratory: No respiratory distress. Breath sounds normal. No Wheezing. No rales Abdomen: Soft and nontender. No rigidity. No distention. Skin: Skin warm and dry. Normal skin color. Normal skin turgor. Extremities: No lower extremity edema. No Lacerations. No Rash Neuro: Oriented X 3. No motor deficit. No sensory deficit. Moving all extremities. No slurred speech. CN 2 through 12 grossly intact Psych: calm, cooperative, normal affect Course Course Course Narrative: Patient denies SI or HI, although he admits that he pointed an empty gone to his head -all of patient's labs pending -patient is on a Section 12 -care team consult pending Medical Decision Making Differential Diagnosis Differential Diagnoses: The differential diagnosis associated with the presentation includes (Suicidal ideation, anxiety, anger reaction) Admission/Observation Consideration of admission/observation: Escalation of care including admission/observation considered (Patient on a Section 12 waiting to be seen by the care team) Critical Care Time Critical Care Time Critical Care Time: Yes Total Critical Care Time: 35 Attestation: I have personally provided critical care time. Time includes review of lab data, radiology results, discussion with consultants, and monitoring for potential decompensation. Intervention performed as documented. Discharge Plan Discharge Clinical Impression: Suicidal ideation, Anger reaction Patient Disposition: Still a Patient Prescriptions: No Action nicotine (polacrilex) 2 mg gum 2 mg PO Q2H PRN (Reason: for nicotine cravings) Qty: 100 2RF (DME) FreeStyle Ole 14 Day Sensor Kit See Rx Instructions .ROUTE .MEDSUPPLY Qty: 6 3RF Rx Instructions: As directed fluticasone propion-salmeterol [Advair Diskus] 250-50 mcg/dose blister with device 1 inh inhalation BID Qty: 60 11RF lisinopril 5 mg tablet 5 mg PO DAILY Qty: 90 0RF famotidine [Pepcid] 20 mg tablet 20 mg PO BEDTIME 90 Days Qty: 90 1RF albuterol sulfate [Ventolin HFA] 90 mcg/actuation HFA aerosol inhaler 2 puff PO Q6H PRN (Reason: for wheezing) Qty: 18 2RF dulaglutide 1.5 mg/0.5 mL pen injector 1.5 mg subcut QWEEK 30 Days Qty: 2 3RF metformin 500 mg tablet 1,000 mg PO BID 90 Days Qty: 360 2RF (DME) FreeStyle Ole 14 Day Rumsey Misc See Rx Instructions .ROUTE .MEDSUPPLY Qty: 1 0RF Rx Instructions: As directed (DME) FreeStyle Lite Strips Strip See Rx Instructions .ROUTE .MEDSUPPLY Qty: 100 3RF Rx Instructions: As directed check the BS QD (DME) blood-glucose meter [FreeStyle Lite Meter] Kit See Rx Instructions .ROUTE .MEDSUPPLY Qty: 1 0RF Rx Instructions: As directed (DME) lancets [FreeStyle Lancets] 28 gauge misc See Rx Instructions .ROUTE .MEDSUPPLY Qty: 100 3RF Rx Instructions: As directed check BS QD Interventions: [place]-Suicide Risk Severity Scale Last Done: 07/29/23 21:36 Print Language: Czech
--- NOTE | 2023-07-29 21:54 | PC.NURSE ---
patients checks in and asks that we dont share information other than immediate family. daughters name eulalia [phone]
[2023-07-29 22:21] LABS: MANUAL DIFF FLAG NO
[2023-07-29 22:23] LABS: Basophils Absolute Auto 0.1 X10*3/uL (0.0-0.2); Basophils Percent Auto 0.5 % (0-2); Eosinophils Absolute Auto 0.3 X10*3/uL (0.0-0.4); Hemoglobin 17.2 g/dl (14.0-18.0); Imm Gran Abs Auto 0.03 X10*3/uL (0.00-0.03); Imm Gran Pct Auto 0.3 % (0.0-0.4); Lymphocytes Absolute Auto 3.9 X10*3/uL (1.2-4.9); Lymphocytes Percent Auto 40.7 % (20-40); Mean Corpuscular HGB Conc 35.8 g/dl (31.0-36.0); Mean Corpuscular Hemoglobin 29.9 pg (27.0-33.0); Mean Corpuscular Volume 83.3 fL (80.0-98.0); Monocytes Absolute Auto 0.9 X10*3/uL (0.1-1.2); Neutrophils Absolute Auto 4.5 x10*3/uL (2.0-8.3); Neutrophils Percent Auto 46.5 % (45-73); Platelet Count 230 X10*3/uL (160-400); Red Blood Count 5.76 X10*6/uL (4.60-5.80); Red Cell Distribution Width 12.6 % (11.0-16.0); White Blood Count 9.6 X10*3/uL (4.8-10.8)
[2023-07-29 22:34] LABS: Amphetamine Screen Urine Not Detected (Not Detect); Barbiturates, Urine Not Detected (Not Detect); Benzodiazepines Screen Urine Not Detected (Not Detect); Buprenorphine Scr Not Detected (Not Detect); Cannabinoid Screen Urine POSITIVE (Not Detect); Cocaine Screen Urine Not Detected (Not Detect); Fentanyl, urine Not Detected (Not Detect); Methadone Screen, Urine Not Detected (Not Detect); Opiate Screen Urine Not Detected (Not Detect); Oxycodone Screen Urine Not Detected (Not Detect); Phencyclidine Screen Urine Not Detected (Not Detect)
[2023-07-29 22:37] LABS: Alanine Aminotransferase 95 U/L (0-40); Albumin Level 4.3 g/dL (3.5-5.0); Alkaline Phosphatase 112 U/L (39-117); Anion Gap 19 (12-20); Aspartate Amino Transferase 70 U/L (5-37); Bilirubin Direct 0.2 mg/dL (0.0-0.5); Bilirubin Total 0.4 mg/dL (0.0-1.0); Blood Urea Nitrogen 10 mg/dL (9-16); Calcium 9.7 mg/dL (8.4-10.2); Carbon Dioxide 21 mmol/L (22-29); Chloride 106 mmol/L (96-108); Creatinine Clr Calc Pharmacy 124.3; Estimated Glomerular Filt Rate > 60; Ethanol 205 mg/dL; Glucose Random 253 mg/dL (60-115); Potassium 3.3 mmol/L (3.3-5.1); Sodium 143 mmol/L (135-145); Total Protein 8.2 g/dL (6.5-8.0)
--- NOTE | 2023-07-30 | ECG_ITS ---
Test Reason : check qt interval Blood Pressure : / mmHG Vent. 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
--- NOTE | 2023-07-30 01:00 | PC.NURSE ---
patients called for a second time and asked about visiting hours, t/w informed client he is still sleeping
[2023-07-30 02:35] VITALS: BP 127/88; PULSE 83; RESP 20; TEMP 36.4; O2SAT 95
[2023-07-30] MEDS: Albuterol Sulfate 90 MCG 8 GM INHALER 4 PUFF INHALE (02:48)
--- NOTE | 2023-07-30 06:02 | PC.NURSE ---
patient had been moving feet consistently for 15-20 miutes, t/w approached provider and asked for ativan, approached patient and client declined.
[2023-07-30 07:22] VITALS: BP 129/89; PULSE 78; RESP 18; TEMP 36.8; O2SAT 93
[2023-07-30 09:00] LABS: Appearance Urine Clear; Color Urine Yellow; Glucose Urine UA 500 mg/dL (Negative); Leukocyte Esterase Urine Negative (Negative); Nitrite Urine Negative (Negative); PH 5.5 (5.0-9.0); Specific Gravity - Urine 1.015 (1.005-1.025); Urine Blood Negative (Negative); Urine Ketones Negative (Negative); Urine Protein Negative (Neg-Trace)
--- NOTE | 2023-07-30 09:00 | PC.NURSE ---
Assumed care of patient at 0645, patient sitting upright in bed, conversing with family who is at bedside, offering no complaints to this RN. Patient is calm and cooperative, aware of plan of care for inpatient bedsearch at this time
--- NOTE | 2023-07-30 10:06 | PC.NURSE ---
RE; Med rec This RN completed med rec with patient. patient reports that he has been off all medications for about 2 months now. He does report that he has his advair and ventolin inhaler at home which he uses regularly
--- NOTE | 2023-07-30 10:07 | PC.NURSE ---
Patient reports not wanting to be here longer than 3 days. This RN educated patient on his Section 12 status and the option to sign a conditional voluntary once admitted inpatient. Patient agreeable this time but he does report that he is supposed to be going to a baby shower on Friday and does not want to miss it
[2023-07-30 13:27] LABS: Glucose, Whole Blood 190 mg/dL (60-115)
[2023-07-30 15:05] VITALS: BP 152/82; PULSE 66; RESP 18; TEMP 36.2; O2SAT 96
--- NOTE | 2023-07-30 16:59 | PC.NURSE ---
Pt signed 3-day notice. Up Friday08/04/23. , SW, UR aware.
[2023-07-30 17:41] VITALS: BMI 32.1
--- NOTE | 2023-07-30 17:52 | PC.ADMIT ---
Scooter Hatfield was admitted to on 07/29 at 1500 from [facility] [place] CV for treatment of suicidal gesture and alcohol intoxication. Pt had been arguing with his off & on recently. He was angry, became drunk and wanted to teach his a lesson. He emptied bullets from his gun and put it to his head. ?I was never really going to kill myself. It was stupid.? His neighbors reportedly called the police. He is Alert and oriented x 4. Jose is pleasant and his mood is apprehensive. He is very focused on getting discharged home by Friday for an important family republican. Jose denies SI/HI/AVH. He reports binge drinking on Fridays & Saturdays only (when he's not working). Smokes a little marijuana every morning. Medical history includes Asthma, KADEN, DM2, high cholesterol, elevated BMI. Jose has a C-PAP at home for his KADEN yet he chooses not to use it. Skin check performed on admission to unit. Personal belongings inventoried by [facility]. No issues discovered. Pt placed on 15 minute safety checks at this time. Regular diet ordered. After admission, patient had a visit with . She assisted with signing forms, as JOSE CANNOT READ. He is now snacking, watching TV and keeping to himself. 3 DAY NOTICE SIGNED (up on 08/03). Pt is insisting he needs to be discharged Friday.
[2023-07-30 20:00] VITALS: BP 152/63; PULSE 67; TEMP 36.4; O2SAT 100
[2023-07-30] MEDS: Albuterol Sulfate 90 MCG 8 GM INHALER 2 PUFF INHALE (20:52)
[2023-07-31] MEDS: Albuterol Sulfate 90 MCG 8 GM INHALER 2 PUFF INHALE ×3 (06:47→21:29)
[2023-07-31 07:00] VITALS: BMI 32.5
[2023-07-31 08:00] VITALS: BP 135/69; PULSE 69; RESP 15; TEMP 36.8; O2SAT 98
[2023-07-31 08:58] LABS: Cholesterol 230 mg/dL (<200); HDL Cholesterol 36 mg/dL (>40); LDL Cholesterol Calculated 127 mg/dL (<100); Triglycerides 339 mg/dL (<150)
[2023-07-31 09:12] LABS: Estimated Average Glucose 166 mg/dL; Hemoglobin A1c % 7.4 % (<6.0)
[2023-07-31 09:14] LABS: Free T4 (Free Thyroxine) 0.98 ng/dL (0.71-1.85); Thyroid Stimulating Hormone 1.03 uIU/mL (0.32-4.0)
[2023-07-31 09:26] LABS: Folate 12.3 ng/mL (> or = 4.0); Vitamin B12 626 pg/mL (200-900)
--- NOTE | 2023-07-31 13:25 | HO.PSYADMNOT ---
HPI Date of Service: 07/31/23 Chief Complaint: SI Gesture Sources of Information: patient interviewed, chart reviewed and crisis/core team assessment reviewed HPI Subjective Notes: Wilson Warning, Conditional Voluntary and 3 Day Narrative: Mr. Hatfield is a 53 year-old male with no prior psychiatric hx who was brought via EMS after daughter called police as pt was holding a gun stating that he was going to kill himself in context of increase tension and arguments with his of 27 years. Pt's BAL was 205. Utox negative. On the unit, pt reports he has been having problems with his and recently she has not talked with him, which he has interpret as she does not love him anymore and may leave him. Pt adamantly denies that he intended to hurt himself or anyone else. In fact the gun had no bullets and he had bullets in his pocket. Pt reports he wanted to see his 's reaction. He reports prior to this incident he had alcohol (unclear amount) and then got the gun. He denies hx of depression. He denies hx of suicide attempts. No hx of hallucinations or delusions. His also provided collateral information and agrees with Mr. Hatfield report except for the fact that she states he had not done something like this in the past and she did worry as to what he was planning to do. She states that it was their daughter who called the police when she saw him. Past Psychiatric History: inpt: none OP: none Hx of suicide attempts: none Past trials: none Medical Evaluation Reviewed: Yes [facility] Medical History DMII (diabetes mellitus, type 2) History of renal calculi Obstructive sleep apnea Fatty liver Vitamin D deficiency Obesity (BMI 30-39.9) Mood disorder Asthma Hypercholesterolemia Alcohol abuse Tobacco abuse Surgical History History of removal of cyst History of tonsillectomy Family History: none Social History: twice. He has been with current for 27 years and they have 3 children together. He has one child from previous relationship. Substance History: Alcohol: reports 3-4 monthly. cannabis: 2 x week denies opioid, cocaine use. Trauma History: not disclosed Diagnostics Vital Signs (24Hr): Vital Signs - 24 hr 07/30/23 15:05 07/30/23 20:00 07/31/23 08:00 Temperature 97.2 F 97.5 F 98.2 F Pulse Rate 66 67 69 Respiratory Rate 18 15 Blood Pressure 152/82 H 152/63 H 135/69 Pulse Oximetry 96 100 98 Oxygen Delivery Method Room Air Room Air Room Air BMI result Body Mass Index 32.1 Labs 07/29/23 22:16 07/29/23 22:16 Labs: Laboratory Results - last 48 hr 07/29/23 07/29/23 07/30/23 22:16 22:17 13:24 WBC 9.6 RBC 5.76 Hgb 17.2 Hct 48.0 MCV 83.3 MCH 29.9 MCHC 35.8 RDW 12.6 Plt Count 230 MPV 10.0 Immature Gran % (Auto) 0.3 Neut % (Auto) 46.5 Lymph % (Auto) 40.7 H [place] % (Auto) 9.0 Eos % (Auto) 3.0 Baso % (Auto) 0.5 Lymph # (Auto) 3.9 [place] # (Auto) 0.9 Eos # (Auto) 0.3 Baso # (Auto) 0.1 Abs Immat Gran (auto) 0.03 Absolute Neuts (auto) 4.5 Absolute Nucleated RBC 0.000 Nucleated RBC % (auto) 0.0 Sodium 143 Potassium 3.3 Chloride 106 Carbon Dioxide 21 L Anion Gap 19 BUN 10 Creatinine 0.80 Estim Creat Clear Calc 124.3 Estimated GFR > 60 POC Glucose 190 H Random Glucose 253 H Estimat Average Glucose Hemoglobin A1c % Calcium 9.7 D Magnesium Total Bilirubin 0.4 Direct Bilirubin 0.2 AST 70 H ALT 95 H Alkaline Phosphatase 112 Total Protein 8.2 H Albumin 4.3 Triglycerides Cholesterol LDL Cholesterol, Calc HDL Cholesterol Vitamin B12 Folate TSH Free T4 Urine Color Yellow Urine Appearance Clear Urine pH 5.5 Ur Specific [place] 1.015 Urine Protein Negative Urine Glucose (UA) 500 H Urine Ketones Negative Urine Blood Negative Urine Nitrite Negative Ur Leukocyte Esterase Negative Urine Opiates Screen Not Detected Ur Buprenorphine Scrn Not Detected Ur Oxycodone Screen Not Detected Urine Methadone Screen Not Detected Urine Fentanyl Screen Not Detected Ur Barbiturates Screen Not Detected Ur Phencyclidine Scrn Not Detected Ur Amphetamines Screen Not Detected U Benzodiazepines Scrn Not Detected Urine Cocaine Screen Not Detected U Marijuana (THC) Screen POSITIVE H Ethyl Alcohol 205 07/31/23 08:19 WBC RBC Hgb Hct MCV MCH MCHC RDW Plt Count MPV Immature Gran % (Auto) Neut % (Auto) Lymph % (Auto) [place] % (Auto) Eos % (Auto) Baso % (Auto) Lymph # (Auto) [place] # (Auto) Eos # (Auto) Baso # (Auto) Abs Immat Gran (auto) Absolute Neuts (auto) Absolute Nucleated RBC Nucleated RBC % (auto) Sodium Potassium Chloride Carbon Dioxide Anion Gap BUN Creatinine Estim Creat Clear Calc Estimated GFR POC Glucose Random Glucose Estimat Average Glucose 166 Hemoglobin A1c % 7.4 H Calcium Magnesium 2.0 Total Bilirubin Direct Bilirubin AST ALT Alkaline Phosphatase Total Protein Albumin Triglycerides 339 H Cholesterol 230 H LDL Cholesterol, Calc 127 H HDL Cholesterol 36 L Vitamin B12 626 Folate 12.3 TSH 1.03 Free T4 0.98 Urine Color Urine Appearance Urine pH Ur Specific [place] Urine Protein Urine Glucose (UA) Urine Ketones Urine Blood Urine Nitrite Ur Leukocyte Esterase Urine Opiates Screen Ur Buprenorphine Scrn Ur Oxycodone Screen Urine Methadone Screen Urine Fentanyl Screen Ur Barbiturates Screen Ur Phencyclidine Scrn Ur Amphetamines Screen U Benzodiazepines Scrn Urine Cocaine Screen U Marijuana (THC) Screen Ethyl Alcohol Meds/Allergies Meds Home Medications ?Medication ?Instructions ?Recorded ?Confirmed ?Type albuterol sulfate 90 mcg/actuation 2 puff inhalation Q6H PRN wheezing 07/30/23 07/30/23 History aerosol inhaler (Ventolin HFA) fluticasone 250 mcg-salmeterol 50 1 ea inhalation BID 07/30/23 07/30/23 History mcg/dose blistr powdr for inhalation (Advair Diskus) Allergies Allergies Allergy/AdvReac Type Severity Reaction Status Date / Time seafood Allergy Severe Hives Verified 07/29/23 21:14 pollen extracts [POLLEN] Allergy Unknown UNKNOWN Verified 07/29/23 21:14 seasonal allergies Allergy Unknown Unknown Uncoded 07/29/23 21:14 Mental Status Exam Mental Status Exam Narrative: Appearance: wearing casual clothing, good hygiene, in NAD behavior: cooperative and pleasant Psychomotor: no agitation or retardation noted Speech: clear, normal rate/rhythm/volume, spontaneous TP: linear TC: remorseful of actions leading to this admission Mood: better Affect: congruent SI: denies HI: denies VH/AH: none Delusions: none Insight/judgment: poor x 2. memory/cog: alert, oriented x 3. grossly intact to conversational testing. Assessment & Plan Assessment & Plan (1) Stress reaction causing mixed disturbance of emotion and conduct: Status: Acute Code(s): F43.0 - Acute stress reaction Plan Mr. Hatfield is a 53 year-old male who was brought via EMS after daughter called 911 due to pt holding a gun stating he wanted to kill himself in the context of increase marital tension and him feeling like his may leave him. The gun was not loaded. He had bullets in his pockets. He denies intent to actually harm himself but states he wanted to see his 's reaction. Pt denies hx of depression and reports actions are circumstantial. He is looking as well as his for couple's therapy. He declines medications as again he reports this is in the context of marital issues. He adamantly denies SI/HI. PLAN 1. admit to [facility], 15 minutes checks, CV 2. aftercare planning. Patient educated on: diagnosis and medication risk/benefits Reason for continued inpatient stay Substantial Risk for: harm to self Statement Statement: I have reviewed the history and physical and performed a pertinent examination on my patient. No changes have occurred unless specified. If the History and Physical was not performed prior to admission, the Hospitalist's service will be consulted for completing the admission physical. Time Spent With Patient Time: Total time managing care of this patient today ____ minutes.
[2023-07-31 20:00] VITALS: BP 164/88; PULSE 90; RESP 17; TEMP 36.4; O2SAT 96
[2023-08-01] MEDS: Albuterol Sulfate 90 MCG 8 GM INHALER 2 PUFF INHALE (07:22)
[2023-08-01 08:00] VITALS: BP 121/74; PULSE 68; RESP 16; TEMP 36.9; O2SAT 95
--- NOTE | 2023-08-01 08:47 | PM.PSYDC ---
DS: Providers Provider Date of Service: 08/01/23 Date of admission: 07/30/23 13:42 Date of discharge: 08/01/23 Primary care physician: Unknown Physician Discharging clinician: Bette Negrete DS: Diagnosis Discharge Diagnosis (1) Stress reaction causing mixed disturbance of emotion and conduct: Status: Acute DS: Medications Discharge Medications Home Medications: Home Medications ?Medication ?Instructions ?Recorded ?Confirmed albuterol sulfate 90 mcg/actuation 2 puff inhalation Q6H PRN wheezing 07/30/23 07/30/23 aerosol inhaler (Ventolin HFA) fluticasone 250 mcg-salmeterol 50 1 ea inhalation BID 07/30/23 07/30/23 mcg/dose blistr powdr for inhalation (Advair Diskus) Mental Status Exam Mental Status Exam Narrative: Appearance: wearing casual clothing, good hygiene, in NAD behavior: cooperative and pleasant Psychomotor: no agitation or retardation noted Speech: clear, normal rate/rhythm/volume, spontaneous TP: linear TC: remorseful of actions leading to this admission Mood: better Affect: congruent SI: denies HI: denies VH/AH: none Delusions: none Insight/judgment: poor x 2. memory/cog: alert, oriented x 3. grossly intact to conversational testing. Data Data Completed and Pending Completed studies during hospitalization [Text1]: 07/29/23 07/29/23 07/30/23 22:16 22:17 13:24 WBC 9.6 RBC 5.76 Hgb 17.2 Hct 48.0 MCV 83.3 MCH 29.9 MCHC 35.8 RDW 12.6 Plt Count 230 MPV 10.0 Immature Gran % (Auto) 0.3 Neut % (Auto) 46.5 Lymph % (Auto) 40.7 H [place] % (Auto) 9.0 Eos % (Auto) 3.0 Baso % (Auto) 0.5 Lymph # (Auto) 3.9 [place] # (Auto) 0.9 Eos # (Auto) 0.3 Baso # (Auto) 0.1 Abs Immat Gran (auto) 0.03 Absolute Neuts (auto) 4.5 Absolute Nucleated RBC 0.000 Nucleated RBC % (auto) 0.0 Sodium 143 Potassium 3.3 Chloride 106 Carbon Dioxide 21 L Anion Gap 19 BUN 10 Creatinine 0.80 Estim Creat Clear Calc 124.3 Estimated GFR > 60 POC Glucose 190 H Random Glucose 253 H Estimat Average Glucose Hemoglobin A1c % Calcium 9.7 D Magnesium Total Bilirubin 0.4 Direct Bilirubin 0.2 AST 70 H ALT 95 H Alkaline Phosphatase 112 Total Protein 8.2 H Albumin 4.3 Triglycerides Cholesterol LDL Cholesterol, Calc HDL Cholesterol Vitamin B12 Folate TSH Free T4 Urine Color Yellow Urine Appearance Clear Urine pH 5.5 Ur Specific [place] 1.015 Urine Protein Negative Urine Glucose (UA) 500 H Urine Ketones Negative Urine Blood Negative Urine Nitrite Negative Ur Leukocyte Esterase Negative Urine Opiates Screen Not Detected Ur Buprenorphine Scrn Not Detected Ur Oxycodone Screen Not Detected Urine Methadone Screen Not Detected Urine Fentanyl Screen Not Detected Ur Barbiturates Screen Not Detected Ur Phencyclidine Scrn Not Detected Ur Amphetamines Screen Not Detected U Benzodiazepines Scrn Not Detected Urine Cocaine Screen Not Detected U Marijuana (THC) Screen POSITIVE H Ethyl Alcohol 205 07/31/23 08:19 WBC RBC Hgb Hct MCV MCH MCHC RDW Plt Count MPV Immature Gran % (Auto) Neut % (Auto) Lymph % (Auto) [place] % (Auto) Eos % (Auto) Baso % (Auto) Lymph # (Auto) [place] # (Auto) Eos # (Auto) Baso # (Auto) Abs Immat Gran (auto) Absolute Neuts (auto) Absolute Nucleated RBC Nucleated RBC % (auto) Sodium Potassium Chloride Carbon Dioxide Anion Gap BUN Creatinine Estim Creat Clear Calc Estimated GFR POC Glucose Random Glucose Estimat Average Glucose 166 Hemoglobin A1c % 7.4 H Calcium Magnesium 2.0 Total Bilirubin Direct Bilirubin AST ALT Alkaline Phosphatase Total Protein Albumin Triglycerides 339 H Cholesterol 230 H LDL Cholesterol, Calc 127 H HDL Cholesterol 36 L Vitamin B12 626 Folate 12.3 TSH 1.03 Free T4 0.98 Urine Color Urine Appearance Urine pH Ur Specific [place] Urine Protein Urine Glucose (UA) Urine Ketones Urine Blood Urine Nitrite Ur Leukocyte Esterase Urine Opiates Screen Ur Buprenorphine Scrn Ur Oxycodone Screen Urine Methadone Screen Urine Fentanyl Screen Ur Barbiturates Screen Ur Phencyclidine Scrn Ur Amphetamines Screen U Benzodiazepines Scrn Urine Cocaine Screen U Marijuana (THC) Screen Ethyl Alcohol DS: Summary Hospital Course Hospital Course: Mr. Hatfield is a 53 year-old male with no prior psychiatric hx who was brought via EMS after daughter called police as pt was holding a gun stating that he was going to kill himself in context of increase tension and arguments with his of 27 years. Pt's BAL was 205. Utox negative. On the unit, pt reports he has been having problems with his and recently she has not talked with him, which he has interpret as she does not love him anymore and may leave him. Pt adamantly denies that he intended to hurt himself or anyone else. In fact the gun had no bullets and he had bullets in his pocket. Pt reports he wanted to see his 's reaction. He reports prior to this incident he had alcohol (unclear amount) and then got the gun. He denies hx of depression. He denies hx of suicide attempts. No hx of hallucinations or delusions. His also provided collateral information and agrees with Mr. Hatfield report except for the fact that she states he had not done something like this in the past and she did worry as to what he was planning to do. She states that it was their daughter who called the police when she saw him. Past Psychiatric History: inpt: none OP: none Hx of suicide attempts: none Past trials: none HOSPITAL COURSE On the unit, pt presented as calm, tearful and remorceful about incident that led to this admission. He adamantly denied any plan or intent to harm himself or anyone else. However, he reported having difficulty with his for some time and lately she has not talked to him which he has interpret as she is not longer interested in being with him and fears she will leave him. He said he had large quatity of alcohol, which is not like himself- and his confirms this - and after he got his gun with no bullets and threatened to harm himself. His daughter was there and was the person who called the police. reports she was taken back by his behavior as he had not done something like this in the past. However, she did not suspect or believe that his intent was to end his life or to hurt anyone else but in fact as pt report to see her reaction. Both and Mr. Hatfield agreed that they need help in their relationship and also agreed to seek couple's therapy. We discussed risks, benefits and alternative treatment options, at this point pt declines any medications for mood as he thinks is situational and would like to wait. Status at Discharge Cognitive/behavioral status at discharge: Pt with brighter, non labile affect. No SI/HI. No VH/AH. Future oriented, remorseful and tearful about incident that led to this admission. No aggression towards self or others. Functional status at discharge: independent ambulation Overall status at discharge: patient is progressing back to baseline Time Spent with Patient Time attestation: Total time managing care of this patient today __35__ minutes. Time spent: Greater than 30 minutes Discharge Plan Discharge Anticipated Discharge Date/Time: 08/01/23 08:41 Patient Disposition: Home Health Service Discharge Diagnosis: stress reaction [facility]errals: [facility] [Other] - 1 Week (Patient may self present for evaluation for therapy and psychiatry services.) [facility] [Other] - 1 Week (Patient may self present for evaluation for psychiatric/therapy services. Hours are Friday-Friday 8 am-8 pm and Friday from 9 am-5 pm.) Ed Agarwal MD [Physician] - 1 Week (office will call pt. with follow-up appointment.) Discharge Medications: Continued fluticasone propion-salmeterol [Advair Diskus] 250-50 mcg/dose blister with device 1 ea INHALATION BID albuterol sulfate [Ventolin HFA] 90 mcg/actuation HFA aerosol inhaler 2 puff inhalation Q6H PRN (Reason: wheezing) Discharge Orders: Discharge Order (Routine); Ordered 08/01/23 Ordered By: Bette Negrete Diet: Regular diet Activity on Discharge: As tolerated Stand Alone Forms: Patient Portal Discharge page, Community Support Print Language: Hungarian Care Plan Goals: 1. Maintain mood 2. No SI/HI 3. No aggression towards self or others. Health Concerns: Follow up with PCP- high cholesterol and HTN Plan of Treatment: 1. Take medications as prescribed 2. Go to nearest ED or call 911 in event of emergency Assessment: Pt with brighter, calmer affect. No SI/HI. future oriented, willing to work on couples problems as well as his . No aggression towards self or others. No VH/AH. No delusions. Discharge Date/Time: 08/01/23 11:00
[2023-08-01] MEDS: Fluticasone/Vilanterol 100/25 BLST.W.DEV 1 PUFF INHALE (08:50)
== END 2023-08-01 11:00 | disposition home health service (06) | DRG 756 ==
LOC: HO.ED 22:24 → HO.PM5 07-30 13:54
PROVIDERS: Admitting Provider Clinical Nurse Specialist Psychiatric/Mental Health, Adult; Emergency Provider Emergency Medicine; Visit Provider Clinical Nurse Specialist Psychiatric/Mental Health, Adult
DX: F43.0 Acute stress reaction (principal); R45.851 Suicidal ideations; Y90.7 Blood alcohol level of 200-239 mg/100 ml; F10.90 Alcohol use, unspecified, uncomplicated; Z79.51 Long term (current) use of inhaled steroids; Z87.891 Personal history of nicotine dependence
CPT/HCPCS: 36415; 80048; 80061; 80076; 80307; 81003; 82607; 82746; 82947; 83036; 83735; 84439; 84443; 85025; 93005; 99285; S9485

== ENCOUNTER → 2023-07-30 09:05 | Outpatient (BNV) | payer OTHER, SELFPAY | PROVIDERS: Admitting Provider Clinical Nurse Specialist Psychiatric/Mental Health, Adult; Emergency Provider Emergency Medicine; Visit Provider Internal Medicine | DX: I49.9 Cardiac arrhythmia, unspecified (principal) | CPT/HCPCS: 93010 ==

== ENCOUNTER → 2023-07-30 13:42 | Outpatient (BNV) | payer OTHER, SELFPAY | PROVIDERS: Admitting Provider Clinical Nurse Specialist Psychiatric/Mental Health, Adult; Emergency Provider Emergency Medicine; Visit Provider Social Worker | DX: F43.0 Acute stress reaction (principal); F10.90 Alcohol use, unspecified, uncomplicated | CPT/HCPCS: 90792; 99232; 99239 ==

== ENCOUNTER 2023-08-29 12:43 | Outpatient (AMB) | payer OTHER, SELFPAY ==
[2023-08-29 12:52] VITALS: BP 148/100; PULSE 83; O2SAT 94; BMI 33.5
--- NOTE | 2023-08-29 12:52 | A.OFFPC_ITS ---
Vital Signs 08/29/23 12:52 08/29/23 13:30 Height 5 ft 8 in Weight 220 lb 0.6 oz BMI 33.5 BP 148/100 H 140/90 H Blood Pressure Location Lt brachial Lt brachial Position Sitting Sitting Pulse 83 Pulse Source Pulse Oximeter Pulse Oximetry (%) 94 Oxygen Delivery Method Room Air Intake Visit Reasons: [facility] Discharge 08/01/23- NEEDS A1C Intake Note: Patient is here for hospital discharge follow up. Patient was discharged from [facility] on 08/01/2023 [employer] Work[employer] Supervisor Required: No Allergies seafood Allergy (Severe, Verified 08/29/23 12:59) Hives pollen extracts [POLLEN] Allergy (Unknown, Verified 08/29/23 12:59) UNKNOWN seasonal allergies Allergy (Unknown, Uncoded 08/29/23 12:59) Unknown Tobacco use date assessed: 08/29/23 Dental Screening Dental Screen Date: 08/29/23 Did you have a dental visit in the last 12 months?: Yes Did you have a dental problem in the last 6 months where you did not have access to dental care?: No Was dental information given to patient?: Patient has dentist HPI [facility] Discharge 08/01/23- NEEDS A1C HPI Details 53-year-old obese male smoker with uncon trolled diabetes mellitus hypercholesterolemia asthma obstructive sleep apnea GERD and hypertension last seen in 04/19/2022. Review of the notes was with Cardiology 08/08/2023 patient went for the myocardial perfusion study which showed a small moderate intensity fixed perfusion defect at the base to the apex EF of 54% recently also had some chest pain patient was advised to go for a stress echocardiogram patient was advised to get sleep study recently was admitted to the psychiatric cano for angry action according to psychiatrist note was not really suicidal. On the notes also in 10/17/2022 had a peritonsillar abscess. patient was seeing a dentist and noted to have a high BP [facility] Medical History DMII (diabetes mellitus, type 2) History of renal calculi Obstructive sleep apnea Fatty liver Vitamin D deficiency Obesity (BMI 30-39.9) Mood disorder Asthma Hypercholesterolemia Alcohol abuse Tobacco abuse Surgical History History of removal of cyst History of tonsillectomy Family History Father CAD (coronary artery disease) CVD (cardiovascular disease) Hypertension Mother Hypertension Maternal Grandfather Colon cancer Maternal Uncle Myocardial infarction Social History Household Members: Spouse and Children Housing: House Do you presently have visiting nurse or other home services: No Alcohol intake: current Alcohol intake frequency: a few times a month Alcohol type: beer and hard liquor Patient Tobacco Use Status: Former Tobacco user Tobacco use type: Cigarette Cigarette Packs Per Day: 0.25 Cigarettes Per Day: 5.0 Years Smoked: 30 e-Cigarette/Vaping Use: Never Used Second Hand Smoke Exposure: No Substance Use Type: Marijuana service: No Current occupational status: employed Sexual orientation: Straight/Heterosexual Cognitive needs: No Hearing needs: No Vision needs: No Questionnaire Thrive Questionnaire Date Thrive assessed: 08/29/23 I am a: Patient What is your living situation today?: I have a steady place to live Within the past 12 months, did the food you bought not last and you didn't have the money to get more?: Never true Within the past 12 months, did you worry whether your food would run out before you got money to buy more?: Never true Do you have trouble paying for medicines?: No Do you have trouble getting transportation to medical appointments?: No Do you have trouble paying your heating and electricity bill?: No Do you have trouble taking care of your child, family member or friend?: No Do you have trouble with day-to-day activities such as bathing, preparing meals, shopping, managing finances, etc.?: No Are you currently unemployed and looking for a job?: No Are you interested in more education?: No Please select the resources that you would like help with: None Currently or been in a relationship where the following occur: no concerns reported THRIVE Score: 0 AUDIT C Alcohol Use Questionnaire (AUDIT-C) 1. How often do you have a drink containing alcohol?: Monthly or less 2. How many drinks containing alcohol do you have on a typical day when you are drinking?: 1 or 2 3. How often do you have six or more drinks on one occasion?: Never Total Score: 1 Score Reviewed/Action Taken: Yes (no action needed) SIMON-7 AMB Questionnaire SIMON-7 Date SIMON - 7 assessed: 08/29/23 Source: Developed by Drs. Raffi Leung, Maria Esther Finney, Fam Camilo and colleagues, with an educational sawyer from [employer]. Physical exam (Primary Care) Vital Signs: Last Vital Signs Pulse 83 08/29/23 12:52 BP 148/100 H 08/29/23 12:52 Pulse Ox 94 08/29/23 12:52 Oxygen Delivery Method Room Air 08/29/23 12:52 BMI result Body Mass Index 33.5 Tobacco/Smoking Status: Tobacco use Status Tobacco use date assessed 08/29/23 08/29/23 12:59 Patient Tobacco Use Status Former Tobacco user 08/29/23 12:59 Tobacco use type Cigarette 08/29/23 12:59 e-Cigarette/Vaping Use Never Used 08/29/23 12:59 Thrive Assessment: Date of Thrive Assessment Date Thrive assessed 08/29/23 08/29/23 12:59 Currently or been in a relationship where the following occur: no concerns reported Const General: alert; No acute distress Eyes Conjunctivae: conjunctivae normal Resp Auscultation: clear to auscultation bilaterally Cardio Rate: regular rate Rhythm: regular rhythm GI Inspection: Yes normal to inspection Extrem General: Yes normal to inspection and No edema Results AMB Hemoglobin A1c AMB Hemoglobin A1c 8.0 % Last Edit by WHITNEY Grant on 08/29/23 13:08 Results Reviewed Results Reviewed: Laboratory Last Values Hgb A1c (Clinic) 8.0 % (4.0-6.0) H 08/29/23 10:33 Assessment and Plan Assessment & Plan (1) Type 2 diabetes mellitus with hyperglycemia: Code(s): E11.65 - Type 2 diabetes mellitus with hyperglycemia Plan: Decrease the amount of carbohydrate intake, pasta, bread, rice and potatoes are all sugar and that is aside from all the sweet stuff, remember that fruits are good but they are Sweet also. Hemoglobin A1c goal of less than 6.5 will start back on metformin and Trulicity (2) Tobacco abuse: Code(s): Z72.0 - Tobacco use Plan: Patient is strongly advised to stop smoking! Patient is not ready (3) Hypercholesterolemia: Code(s): E78.00 - Pure hypercholesterolemia, unspecified Plan: Avoid fried foods, chicken skin, eggs, butter margarine, pastries and meat. Be it pork or beef they have a lot of cholesterol LDL goal of less than 100 and triglyceride of less than 150 prescription for atorvastatin started (4) Asthma: Comment: PFT June 2018 Code(s): J45.909 - Unspecified asthma, uncomplicated Plan: Patient is advised to strongly stop smoking, continue with inhaler (5) Obesity (BMI 30-39.9): Code(s): E66.9 - Obesity, unspecified Plan: Diet and exercise (6) Hypertension: Code(s): I10 - Essential (primary) hypertension Plan: Continue to monitor blood pressure lisinopril 5 mg started (7) GERD (gastroesophageal reflux disease): Code(s): K21.9 - Gastro-esophageal reflux disease without esophagitis Plan: Avoid the foods that causes that usually spicy foods, tomato products, juices, coffee, soda and foods that your sensitive to. After eating do not lie down, allow 3-4 hours before in lie down. And keep the head of bed above 30 degrees to avoid the acid from going up. (8) Stress reaction causing mixed disturbance of emotion and conduct: Code(s): F43.0 - Acute stress reaction Plan: Patient advised to follow-up with psychiatry, referral to [facility] (9) Colon cancer screening: Code(s): Z12.11 - Encounter for screening for malignant neoplasm of colon Plan: Reminded about colonoscopy Orders: Orders AMB Hemoglobin A1c Today E11.65 - Type 2 diabetes mellitus with hyperglycemia Creatinine Urine Today E11.65 - Type 2 diabetes mellitus with hyperglycemia, E78.00 - Pure hypercholesterolemia, unspecified Comprehensive Met. Panel Today E78.00 - Pure hypercholesterolemia, unspecified Thyroid Stimulating Hormone Today E78.00 - Pure hypercholesterolemia, unspecified Free T4 (Free Thyroxine) Today E78.00 - Pure hypercholesterolemia, unspecified Vitamin B12 and Folate Today E78.00 - Pure hypercholesterolemia, unspecified RT home sleep study Today G47.33 - Obstructive sleep apnea (adult) (pediatric) Lipid Panel Today E78.00 - Pure hypercholesterolemia, unspecified Complete Blood Count Auto Diff Today E78.00 - Pure hypercholesterolemia, unspecified Microalbumin, Random (w Creat) Today E11.65 - Type 2 diabetes mellitus with hyperglycemia, E78.00 - Pure hypercholesterolemia, unspecified Prostate Specific Antigen Scr Today E78.00 - Pure hypercholesterolemia, unspecified Hemoglobin A1c Today E78.00 - Pure hypercholesterolemia, unspecified Referrals Psychiatry Referral F43.0 - Acute stress reaction Medications: New atorvastatin 10 mg PO DAILY 30 tabs 3RF E78.00 - Pure hypercholesterolemia, unspecified Refilled lisinopril 5 mg PO DAILY 90 tabs 0RF I10 - Essential (primary) hypertension metformin 1,000 mg (2 x 500 mg) PO BID 90 days 360 tabs 2RF E11.9 - Type 2 diabetes mellitus without complications dulaglutide 1.5 mg (0.5 mL) subcut QWEEK 30 days 2 mL 3RF E11.65 - Type 2 diabetes mellitus with hyperglycemia Coding Level of Care Code Est Pt Level 4 (63186) Complex EM visit Add On G2211 Diagnoses Type 2 diabetes mellitus with hyperglycemia E11.65 Tobacco abuse Z72.0 Hypercholesterolemia E78.00 Asthma J45.909 Obesity (BMI 30-39.9) E66.9 Hypertension I10 GERD (gastroesophageal reflux disease) K21.9 Stress reaction causing mixed disturbance of emotion and conduct F43.0 Colon cancer screening Z12.11
[2023-08-29 13:30] VITALS: BP 140/90
== END 2023-08-29 13:42 | disposition home or self-care (01) ==
PROVIDERS: PCP Internal Medicine; Visit Provider Internal Medicine
DX: E11.65 Type 2 diabetes mellitus with hyperglycemia (principal); Z72.0 Tobacco use; E78.00 Pure hypercholesterolemia, unspecified; J45.909 Unspecified asthma, uncomplicated; E66.9 Obesity, unspecified; I10 Essential (primary) hypertension; K21.9 Gastro-esophageal reflux disease without esophagitis; F43.0 Acute stress reaction; Z12.11 Encounter for screening for malignant neoplasm of colon
CPT/HCPCS: 83036; 99214; G2211

== ENCOUNTER 2023-09-12 10:38 | Outpatient (REF) | payer OTHER, SELFPAY ==
[2023-09-12 11:09] LABS: MANUAL DIFF FLAG NO
[2023-09-12 11:54] LABS: Basophils Percent Auto 0.5 % (0-2); Eosinophils Absolute Auto 0.4 X10*3/uL (0.0-0.4); Hematocrit 48.1 % (42.0-52.0); Hemoglobin 16.8 g/dl (14.0-18.0); Imm Gran Abs Auto 0.04 X10*3/uL (0.00-0.03); Imm Gran Pct Auto 0.5 % (0.0-0.4); Lymphocytes Absolute Auto 2.9 X10*3/uL (1.2-4.9); Lymphocytes Percent Auto 35.9 % (20-40); Mean Corpuscular HGB Conc 34.9 g/dl (31.0-36.0); Mean Corpuscular Hemoglobin 29.6 pg (27.0-33.0); Mean Corpuscular Volume 84.8 fL (80.0-98.0); Mean Platelet Volume 10.6 fL (9.4-12.4); Monocytes Absolute Auto 0.9 X10*3/uL (0.1-1.2); Monocytes Percent Auto 10.8 % (2-11); Neutrophils Absolute Auto 3.9 x10*3/uL (2.0-8.3); Neutrophils Percent Auto 47.3 % (45-73); Platelet Count 203 X10*3/uL (160-400); Red Blood Count 5.67 X10*6/uL (4.60-5.80); White Blood Count 8.2 X10*3/uL (4.8-10.8)
[2023-09-12 12:03] LABS: Estimated Average Glucose 197 mg/dL; Hemoglobin A1c % 8.5 % (<6.0)
[2023-09-12 12:32] LABS: Alanine Aminotransferase 174 U/L (0-40); Albumin Level 4.1 g/dL (3.5-5.0); Alkaline Phosphatase 116 U/L (39-117); Anion Gap 12 (12-20); Aspartate Amino Transferase 79 U/L (5-37); Bilirubin Total 0.8 mg/dL (0.0-1.0); Blood Urea Nitrogen 11 mg/dL (9-16); Calcium 9.2 mg/dL (8.4-10.2); Carbon Dioxide 25 mmol/L (22-29); Chloride 107 mmol/L (96-108); Cholesterol 160 mg/dL (<200); Estimated Glomerular Filt Rate > 60; Glucose Random 163 mg/dL (60-115); HDL Cholesterol 35 mg/dL (>40); LDL Cholesterol Calculated 87 mg/dL (<100); Potassium 3.9 mmol/L (3.3-5.1); Sodium 140 mmol/L (135-145); Total Protein 7.5 g/dL (6.5-8.0); Triglycerides 194 mg/dL (<150)
[2023-09-12 12:51] LABS: Folate 13.6 ng/mL (> or = 4.0); Free T4 (Free Thyroxine) 1.13 ng/dL (0.71-1.85); Prostate Specific Antigen Scr 0.92 ng/mL (<0.05-4.0); Thyroid Stimulating Hormone 0.66 uIU/mL (0.32-4.0); Vitamin B12 766 pg/mL (200-900)
== END 2023-09-12 10:39 | disposition home or self-care (01) ==
LOC: HO.LAB 10:38
PROVIDERS: PCP Internal Medicine; Visit Provider Internal Medicine
DX: E78.00 Pure hypercholesterolemia, unspecified (principal)
CPT/HCPCS: 36415; 80053; 80061; 82607; 82746; 83036; 84153; 84439; 84443; 85025

== ENCOUNTER 2023-10-10 10:11 | Outpatient (AMB) | payer OTHER, SELFPAY ==
[2023-10-10 10:14] VITALS: BP 140/82; PULSE 80; O2SAT 98; BMI 32.5
--- NOTE | 2023-10-10 10:14 | MHC.PC.OV ---
Vital Signs 10/10/23 10:14 Height 5 ft 8 in Weight 214 lb BMI 32.5 BP 140/82 H Blood Pressure Location Lt brachial Position Sitting Pulse 80 Pulse Source Pulse Oximeter Pulse Oximetry (%) 98 Oxygen Delivery Method Room Air Intake Visit Reasons: HTN with Trey Allergies seafood Allergy (Severe, Verified 10/10/23 10:15) Hives pollen extracts [POLLEN] Allergy (Unknown, Verified 10/10/23 10:15) UNKNOWN seasonal allergies Allergy (Unknown, Uncoded 10/10/23 10:15) Unknown Tobacco use date assessed: 08/29/23 Dental Screening Dental Screen Date: 10/10/23 Did you have a dental visit in the last 12 months?: Yes Did you have a dental problem in the last 6 months where you did not have access to dental care?: No Was dental information given to patient?: Patient has dentist HPI HTN with Trey HPI Details 53-year-old obese male smoker with uncontrolled diabetes mellitus hypercholesterolemia asthma hypertension GERD generalized anxiety disorder coming in for follow-up. Last seen in July 2023. Patient was seen by cardiology Aug 08 2023 has been advised to get a stress echocardiogram [facility] Medical History DMII (diabetes mellitus, type 2) History of renal calculi Obstructive sleep apnea Fatty liver Vitamin D deficiency Obesity (BMI 30-39.9) Mood disorder Asthma Hypercholesterolemia Alcohol abuse Tobacco abuse Surgical History History of removal of cyst History of tonsillectomy Family History (Updated 10/10/23 @ 10:15 by Vicky Reza CMA) Father CAD (coronary artery disease) CVD (cardiovascular disease) Hypertension Mother Hypertension Maternal Grandfather Colon cancer Maternal Uncle Myocardial infarction Social History Household Members: Spouse and Children Housing: House Do you presently have visiting nurse or other home services: No Alcohol intake: current Alcohol intake frequency: a few times a month Alcohol type: beer and hard liquor Patient Tobacco Use Status: Former Tobacco user Tobacco use type: Cigarette Cigarette Packs Per Day: 0.25 Cigarettes Per Day: 5.0 Years Smoked: 30 e-Cigarette/Vaping Use: Never Used Second Hand Smoke Exposure: No Substance Use Type: Marijuana service: No Current occupational status: employed Sexual orientation: Straight/Heterosexual Cognitive needs: No Hearing needs: No Vision needs: No Questionnaire PHQ-9 Over the last 2 weeks, how often have you been bothered by any of the following problems? 1. Little interest or pleasure in doing things: not at all 2. Feeling down, depressed, or hopeless: not at all 3. Trouble falling or staying asleep, or sleeping too much: not at all 4. Feeling tired or having little energy: not at all 5. Poor appetite or overeating: not at all 6. Feeling bad about yourself - or that you are a failure or have let yourself or your family down: not at all 7. Trouble concentrating on things, such as reading the newspaper or watching television: not at all 8. Moving or speaking so slowly that other people could have noticed. Or the opposite - being so fidgety or restless that you have been moving around a lot more than usual: not at all 9. Thoughts that you would be better off or of hurting yourself in some way: not at all Total score: 0 Depression Screening Interpretation: Negative Depression Screening Done: Yes Source: Developed by Drs. Raffi Leung, Maria Esther Finney, Fam Camilo and colleagues, with an educational sawyer from [employer]. Thrive Questionnaire Date Thrive assessed: 08/29/23 I am a: Patient What is your living situation today?: I have a steady place to live Within the past 12 months, did the food you bought not last and you didn't have the money to get more?: Never true Within the past 12 months, did you worry whether your food would run out before you got money to buy more?: Never true Do you have trouble paying for medicines?: No Do you have trouble getting transportation to medical appointments?: No Do you have trouble paying your heating and electricity bill?: No Do you have trouble taking care of your child, family member or friend?: No Do you have trouble with day-to-day activities such as bathing, preparing meals, shopping, managing finances, etc.?: No Are you currently unemployed and looking for a job?: No Are you interested in more education?: No Please select the resources that you would like help with: None Currently or been in a relationship where the following occur: No concerns reported THRIVE Score: 0 AUDIT C Alcohol Use Questionnaire (AUDIT-C) 1. How often do you have a drink containing alcohol?: Monthly or less 2. How many drinks containing alcohol do you have on a typical day when you are drinking?: 1 or 2 3. How often do you have six or more drinks on one occasion?: Never Total Score: 1 Score Reviewed/Action Taken: Yes (no action needed) SIMON-7 AMB Questionnaire SIMON-7 Date SIMON - 7 assessed: 08/29/23 Source: Developed by Drs. Raffi Leung, Maria Esther Finney, Fam Camilo and colleagues, with an educational sawyer from [employer]. Physical exam (Primary Care) Vital Signs: Last Vital Signs Pulse 80 10/10/23 10:14 BP 140/82 H 10/10/23 10:14 Pulse Ox 98 10/10/23 10:14 Oxygen Delivery Method Room Air 10/10/23 10:14 BMI result Body Mass Index 32.5 Tobacco/Smoking Status: Tobacco use Status Tobacco use date assessed 08/29/23 10/10/23 10:18 Patient Tobacco Use Status Former Tobacco user 10/10/23 10:18 Tobacco use type Cigarette 10/10/23 10:18 e-Cigarette/Vaping Use Never Used 10/10/23 10:18 PHQ-9: PHQ-9 Score PHQ-9: Total score 0 10/10/23 10:18 Depression Screening Interpretation: Negative Thrive Assessment: Date of Thrive Assessment Date Thrive assessed 08/29/23 10/10/23 10:18 Currently or been in a relationship where the following occur: No concerns reported Const General: alert; No acute distress Eyes Conjunctivae: conjunctivae normal Resp Auscultation: clear to auscultation bilaterally Cardio Rate: regular rate Rhythm: regular rhythm GI Inspection: Yes normal to inspection Extrem General: Yes normal to inspection and No edema Assessment and Plan Assessment & Plan (1) Tobacco abuse: Code(s): Z72.0 - Tobacco use Plan: Patient is strongly advised to stop smoking! (2) Type 2 diabetes mellitus with hyperglycemia: Code(s): E11.65 - Type 2 diabetes mellitus with hyperglycemia Plan: Decrease the amount of carbohydrate intake, pasta, bread, rice and potatoes are all sugar and that is aside from all the sweet stuff, remember that fruits are good but they are Sweet also. Hemoglobin A1c goal of less than 6.5. Patient on metformin a 1000 mg twice a day and has been started on Ozempic 1 mg once a week (3) Hypercholesterolemia: Code(s): E78.00 - Pure hypercholesterolemia, unspecified Plan: Avoid fried foods, chicken skin, eggs, butter margarine, pastries and meat. Be it pork or beef they have a lot of cholesterol LDL goal of less than 100 and triglyceride of less than 150 on atorvastatin 10 mg once a day (4) Obesity (BMI 30-39.9): Code(s): E66.9 - Obesity, unspecified Plan: Diet and exercise (5) Asthma: Comment: PFT June 2018 Code(s): J45.909 - Unspecified asthma, uncomplicated Plan: Continue with albuterol inhaler and Advair. Rinse mouth after using Advair (6) Hypertension: Code(s): I10 - Essential (primary) hypertension Plan: Continue with blood pressure medication. Decrease salt intake and exercise presently on lisinopril 5 mg once a day Medications: New albuterol sulfate 90 mcg/actuation (Ventolin HFA) 2 puffs inhalation Q6H PRN 8.5 grams 0RF wheezing J45.909 - Unspecified asthma, uncomplicated Changed From lisinopril 5 mg PO DAILY 90 tabs 0RF I10 - Essential (primary) hypertension To lisinopril 10 mg PO DAILY 30 tabs 5RF I10 - Essential (primary) hypertension From semaglutide (Ozempic) 1 mg (0.75 mL) subcut QWEEK 3 mL 11RF E11.65 - Type 2 diabetes mellitus with hyperglycemia To semaglutide 2 mg (0.75 mL) subcut QWEEK 3 mL 11RF E11.65 - Type 2 diabetes mellitus with hyperglycemia Refilled fluticasone propion-salmeterol 250-50 mcg/dose (Advair Diskus) 1 ea inhalation BID 60 ea 11RF Coding Level of Care Code Est Pt Level 4 (32089) Complex EM visit Add On G2211 Diagnoses Tobacco abuse Z72.0 Type 2 diabetes mellitus with hyperglycemia E11.65 Hypercholesterolemia E78.00 Obesity (BMI 30-39.9) E66.9 Asthma J45.909 Hypertension I10 Additional Codes PHQ-9 - 90396 - PHQ-9 Billing: ([id number])
== END 2023-10-10 10:53 | disposition home or self-care (01) ==
PROVIDERS: PCP Internal Medicine; Visit Provider Internal Medicine
DX: E11.65 Type 2 diabetes mellitus with hyperglycemia (principal); F17.210 Nicotine dependence, cigarettes, uncomplicated; E66.9 Obesity, unspecified; Z68.32 Body mass index [BMI] 32.0-32.9, adult; E78.00 Pure hypercholesterolemia, unspecified; J45.909 Unspecified asthma, uncomplicated; I10 Essential (primary) hypertension
CPT/HCPCS: 99214; G2211

== ENCOUNTER 2023-11-17 09:24 | Inpatient (IN) | payer OTHER, SELFPAY ==
--- NOTE | ~2023-11-17 | CT_ITS ---
EXAMINATION: CT SOFT TISSUE NECK WITH CONTRAST CLINICAL INFORMATION: Left-sided facial/neck pain and swelling. COMPARISON: CT neck from 09/28/2022. TECHNIQUE: Multidetector helical imaging was performed in the axial plane following the administration of 6 mL of Omnipaque 350 intravenous contrast. Multiple axial reformats and coronal/sagittal reconstructions were created the technologist workstation for review. This CT examination was performed using dose optimization techniques as appropriate, variously including the following: *Automated exposure control. *Adjustment of mA and/or kV according to patient size (this includes techniques or standardized protocols for targeted exams where dose is matched to indication/reason for exam; i.e. extremities or head). *Use of iterative reconstruction technique. DLP: 878 mGy-cm FINDINGS: No significant cutaneous thickening or subcutaneous inflammation. Moderate heterogeneous mucosal thickening/edema along the left aspect of the oropharynx/left palatine tonsil extending into the left aspect of the supraglottic larynx. Mild edema within the upper retropharyngeal adipose tissue at the levels of C1-C3. There is amorphous hyperemia along the mucosa of the left glossotonsillar sulcus and left palatine tonsil at the site of previous tonsillar abscess and 2023. Potential subcentimeter pocket of fluid within the left palatine tonsil (0.7 x 0.4 cm). No demonstrated additional discrete fluid collection within the deep tissues of the neck. No demonstrated additional focal lesion or abnormal enhancement within the intrinsic tissues of the tongue or floor of mouth. The premaxillary, retromaxillary, pterygopalatine fossa, orbital apical, parapharyngeal, and prelaryngeal adipose tissue is maintained. Mild edema surrounding the left submandibular gland. Otherwise, normal appearance of the parotid, submandibular, and thyroid glands. There is a 1.3 cm hyperemic lymph node in left level IIa. A 1.2 cm left level V the lymph node is similar to mildly decreased in size compared to 202. A 1.3 cm left supraclavicular lymph node is similar to 2023. Otherwise, scattered subcentimeter lymph nodes bilaterally, none of which are pathologically enlarged or abnormally enhancing. No demonstrated progression of lymphadenopathy compared to 2023. No demonstrated mucosal soft tissue lesions of the larynx. Normal appearance of the hyoid bone, thyroid cartilage, or cartilaginous trachea. Mild to moderate narrowing of the supraglottic airway. Otherwise, the airways remains widely patent. No radiopaque foreign bodies. The atlantooccipital and atlantoaxial articulations remain well aligned. Straightening of the normal cervical lordosis. No evidence of acute fracture or subluxation of the cervical spine. The vertebral body heights are maintained. Advanced degenerative disc disease at C6-C7. Moderate degenerative disc disease from C3-C6. No evidence of epidural collection. There is no prevertebral soft tissue swelling. Normal opacification of the cervical arterial and venous structures. The visualized portion of the skull base is without significant abnormalities. Mild mucosal thickening of the paranasal sinuses. Chronic depression of the left lamina papyracea. The mastoid air cells and middle ear cavities are clear. Periapical disease associated with the mandibular right molar. CT Upper Chest: The visualized lung apices and upper mediastinum are within normal limits. CT/CT soft tissue neck w IV con IMPRESSION: 1. Moderate mucosal thickening/edema along the left aspect of the oropharynx/left palatine tonsil extending into the left aspect of the supraglottic larynx. Amorphous hyperemia along the mucosa of the left glossotonsillar sulcus and left palatine tonsil at the site of previous tonsillar abscess and 202. Potential subcentimeter pocket of fluid within the left palatine tonsil (0.7 x 0.4 cm). Mild to moderate narrowing of the supraglottic airway. Otherwise, the airways remains widely patent. This may represent sequela of recurrent tonsillar abscess. Recommend close attention after treatment of the acute symptoms to exclude additional underlying lesions. 2. No demonstrated additional discrete fluid collection within the deep tissues of the neck. 3. Mildly prominent left-sided cervical chain lymph nodes are similar to mildly decreased in size compared to 202. No demonstrated progression of lymphadenopathy compared to 202.
[2023-11-17 09:35] VITALS: BP 132/85; PULSE 71; RESP 16; TEMP 37.1; O2SAT 94; BMI 35.7
[2023-11-17 10:17] LABS: IDNOW Serial# 08D9AD1C; Strep A Nucleic Acid Negative (Negative)
[2023-11-17 10:19] LABS: Troponin-I High Sensitivity < 2.7 ng/L (<3.5-35.0)
[2023-11-17 10:33] LABS: Influenza A PCR NEGATIVE (Negative); Influenza B PCR NEGATIVE (Negative); Resp Syncy Virus RNA Qual PCR NEGATIVE (Negative); SARS COV2 PCR INHOUSE NEGATIVE (Negative)
--- NOTE | 2023-11-17 11:45 | ED_ITS ---
HPI - General Adult General Chief complaint: Upper Respiratory Symptoms Stated complaint: Sore throat/L ear pain Time Seen by Provider: 11/17/23 11:27 Source: patient Mode of arrival: ambulatory Limitations: no limitations History of Present Illness ED Provider: Liza Dale PA-C HPI narrative: 53-year-old male with PMHx of tonsillectomy, hypertension, asthma, T2 DM, smoking, GERD, presenting to the emergency department c/o sore throat > left, painful swallowing, and left ear pain x 1 week. Denies difficulty or inability to swallow, or SOB. Is tolerating p.o. 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 Denies fevers, headaches, SOB, chest pain, congestion, NVD, abdominal pain, recent travel, sick contacts. Has taken Ibuprofen with minimal relief. States he had something like this similar in the past, about 1 year ago, were turned out to be a peritonsillar abscess. Related Data Previous Rx's ?Medication ?Instructions ?Recorded metformin 500 mg tablet 1,000 mg (2 x 500 mg) PO BID 90 08/29/23 days #360 tabs atorvastatin 10 mg tablet 10 mg PO DAILY #30 tabs 09/19/23 fluticasone 250 mcg-salmeterol 50 1 ea inhalation BID #60 ea 10/10/23 mcg/dose blistr powdr for inhalation (Advair Diskus) lisinopril 10 mg tablet 10 mg PO DAILY #30 tabs 10/10/23 semaglutide 2 mg/dose (8 mg/3 mL) 2 mg (0.75 mL) subcut QWEEK #3 mL 10/10/23 subcutaneous pen injector albuterol sulfate 90 mcg/actuation 2 inh inhalation Q4-6H PRN 10/21/23 breath activated powder shortness of breath or wheezing #1 inhaler,sensor (Proair Digihaler) ea Allergies Allergy/AdvReac Type Severity Reaction Status Date / Time seafood Allergy Severe Hives Verified 11/17/23 09:38 pollen extracts [POLLEN] Allergy Unknown UNKNOWN Verified 11/17/23 09:38 seasonal allergies Allergy Unknown Unknown Uncoded 10/10/23 10:15 Review of Systems 2 Review of Systems: Constitutional: No Fever, No Chills ENT/Mouth: + Left Ear Pain, No Nasal Congestion, No Hoarseness, +sore throat to left side, +painful swallowing Cardiovascular: No Chest Pain, No SOB Respiratory: No Cough, No Sputum Gastrointestinal: No Nausea, No Vomiting, No Diarrhea, No Constipation, No Abdominal pain Musculoskeletal: No joint pain, No Myalgias, No Joint Swelling Skin: No Skin Lesions, No rash, No swelling noted Neuro: No Weakness Yes all other systems are reviewed and are negative Constitutional: Constitutional: Reports as per [facility] Past Medical History Attestation statement: The following information was validated with the patient. Source: old records reviewed Medical History DMII (diabetes mellitus, type 2) History of renal calculi Obstructive sleep apnea Fatty liver Vitamin D deficiency Obesity (BMI 30-39.9) Mood disorder Asthma Hypercholesterolemia Alcohol abuse Tobacco abuse Surgical History History of removal of cyst History of tonsillectomy Family History Family History Father CAD (coronary artery disease) CVD (cardiovascular disease) Hypertension Mother Hypertension Maternal Grandfather Colon cancer Maternal Uncle Myocardial infarction Social History Social History Household Members: Spouse and Children Housing: House Do you presently have visiting nurse or other home services: No Alcohol intake: current Alcohol intake frequency: a few times a month Alcohol type: beer and hard liquor Patient Tobacco Use Status: Former Tobacco user Tobacco use type: Cigarette Cigarette Packs Per Day: 0.25 Cigarettes Per Day: 5.0 Years Smoked: 30 Smoked in Last 30 Days: No e-Cigarette/Vaping Use: Never Used Second Hand Smoke Exposure: No Substance Use Type: Marijuana Advance Directives: No Advance Directives Information Provided: No service: No Current occupational status: employed Sexual orientation: Straight/Heterosexual Cognitive needs: No Hearing needs: No Vision needs: No Physical Exam ED Vital Signs: Vital Signs - 24 hr 11/17/23 09:35 11/17/23 14:55 11/17/23 15:58 Temperature 98.8 F 98.5 F Pulse Rate 71 61 Respiratory Rate 16 16 Blood Pressure 132/85 130/78 Pulse Oximetry 94 95 98 Oxygen Delivery Method Room Air Room Air Room Air BMI result Body Mass Index 35.7 Const General: cooperative, no acute distress, alert and awake Orientation/consciousness: patient oriented x3 Limitations: no limitations HENMT Other: + mild left-sided facial/parotid swelling appreciated with some tenderness palpation. No erythema/warmth. + left-sided posterior oropharyngeal swelling. Uvula midline, no deviation. Talking in complete sentences, no drooling, handling secretions. Head: Yes normal to inspection and Yes atraumatic Ears: hearing grossly normal bilaterally, external ears normal, TM's normal bilaterally, EAC's normal and mastoids normal General nose exam: Normal external nose present and Normal nares present Face and sinus: No edema Mouth: Normal oral and palatal mucosa present and no drooling Teeth and gingiva: dentition normal Throat: Yes uvula midline, No uvula laterally displaced and No uvular edema Eyes General: appearance normal, both eyes and all related structures EOM: EOMs intact bilaterally Neck Neck: Yes normal visual inspection, Yes no meningeal signs, Yes trachea midline and Yes tender (left upper neck is tender to palpation) Chest Chest palpation & inspection: normal inspection of the chest Resp Effort & Inspection: normal respiratory effort, no respiratory distress and no stridor Auscultation: clear to auscultation bilaterally Cardio Rate: regular rate Heart sounds: S1 normal heart sound present and S2 normal heart sound present Skin Rashes: no rashes Wounds: no wounds Neuro General: patient oriented x3, tone normal and no meningeal signs Cranial nerves: Yes CN's II-XII intact bilaterally Extrem General: Yes normal to inspection Course Course Course Narrative: -1345--leukocytosis of 11.8. CRP elevated to 1.40. Labs otherwise reassuring -COVID/flu/RSV and rapid strep negative CT soft tissue neck w IV con IMPRESSION: 1. Moderate mucosal thickening/edema along the left aspect of the oropharynx/left palatine tonsil extending into the left aspect of the supraglottic larynx. Amorphous hyperemia along the mucosa of the left glossotonsillar sulcus and left palatine tonsil at the site of previous tonsillar abscess and 2022. Potential subcentimeter pocket of fluid within the left palatine tonsil (0.7 x 0.4 cm). Mild to moderate narrowing of the supraglottic airway. Otherwise, the airways remains widely patent. This may represent sequela of recurrent tonsillar abscess. Recommend close attention after treatment of the acute symptoms to exclude additional underlying lesions. 2. No demonstrated additional discrete fluid collection within the deep tissues of the neck. 3. Mildly prominent left-sided cervical chain lymph nodes are similar to mildly decreased in size compared to 202. No demonstrated progression of lymphadenopathy compared to 202. > patient given 10 mg of Decadron and IV Unasyn. We will transfer for ENT specialist -1619--spoke with [facility] transfer line, will page out to ENT -1630--spoke with ENT at [facility], states this is not surgical, recommends admission for IV antibiotics. [facility] currently has no available beds. Will discuss case with our hospitalist team -hospitalist, Dr. Mayo accepted admission Medications Administered Discontinued Medications Generic Name Dose Route Start Last Admin Trade Name Freq PRN Reason Stop Dose Admin Dexamethasone Sodium Phosphate 10 mg 11/17/23 15:36 11/17/23 15:56 Dexamethasone Sod Phosphate 10 Mg/Ml Vial IVPUSH 11/17/23 15:37 10 mg ONCE ONE Administration Fentanyl 25 mcg 11/17/23 13:29 11/17/23 14:22 Fentanyl Citrate/Pf 100 Mcg/2 Ml Vial IVPUSH 11/17/23 13:30 25 mcg ONCE ONE Administration Protocol Sodium Chloride 1,000 mls @ 999 mls/hr 11/17/23 12:15 11/17/23 14:20 Ns IV 11/17/23 13:15 Infused .Q1H1M PANCHO Infusion Ampicillin Sodium/Sulbactam 100 mls @ 200 mls/hr 11/17/23 15:36 11/17/23 17:11 Sodium 3 gm/ Sodium Chloride IV 11/17/23 16:05 Infused ONCE ONE Infusion Iohexol 100 ml 11/17/23 13:21 11/17/23 13:22 Iohexol 350 Mg/Ml 100 Ml Infus..Btl IV 11/17/23 13:22 60 ml ONCE ONE Administration Ketorolac Tromethamine 30 mg 11/17/23 12:13 11/17/23 12:41 Ketorolac Tromethamine 30 Mg/Ml Vial IVPUSH 11/17/23 12:14 30 mg ONCE ONE Administration Medical Decision Making Medical Decision Making MDM Narrative: 53-year-old male with PMHx of tonsillectomy, hypertension, asthma, T2 DM, smoking, GERD, presenting to the emergency department c/o sore throat > left, painful swallowing, and left ear pain x 1 week. On exam vital signs stable, NAD, nontoxic appearing physical exam as noted above with left parotid/upper neck and posterior oropharyngeal swelling/tenderness. Uvula midline, handling secretions, no respiratory distress, talking in complete sentences. Concern for strep pharyngitis vs parotitis vs retropharyngeal abscess vs edema vs cellulitis vs small KNIFE SETTER like prior eval. Low suspicion for severe sepsis Plan: Viral testing, rapid strep, labs, CT Please refer to course for remaining clinical decision making, interpretation of labs/imaging results, and discussions with consultants and/or family members. Differential Diagnosis Differential Diagnoses: The differential diagnosis associated with the presentation includes As above Admission/Observation Consideration of admission/observation: Escalation of care including admission/observation considered Lab Data MDM Lab Attestation statement: I reviewed the patient's lab results. 11/17/23 12:25 11/17/23 12:25 Labs: Lab Results 11/17/23 11/17/23 11/17/23 Range/Units 09:51 10:06 12:25 WBC 11.8 H (4.8-10.8) X10*3/uL RBC 5.44 (4.60-5.80) X10*6/uL Hgb 16.5 (14.0-18.0) g/dl Hct 46.1 (42.0-52.0) % MCV 84.7 (80.0-98.0) fL MCH 30.3 (27.0-33.0) pg MCHC 35.8 (31.0-36.0) g/dl RDW 12.9 (11.0-16.0) % Plt Count 207 (160-400) X10*3/uL MPV 9.8 (9.4-12.4) fL Immature Gran % (Auto) 0.3 (0.0-0.4) % Neut % (Auto) 63.0 (45-73) % Lymph % (Auto) 24.5 (20-40) % [place] % (Auto) 9.7 (2-11) % Eos % (Auto) 2.2 (0-4) % Baso % (Auto) 0.3 (0-2) % Lymph # (Auto) 2.9 (1.2-4.9) X10*3/uL [place] # (Auto) 1.2 (0.1-1.2) X10*3/uL Eos # (Auto) 0.3 (0.0-0.4) X10*3/uL Baso # (Auto) 0.0 (0.0-0.2) X10*3/uL Abs Immat Gran (auto) 0.04 H (0.00-0.03) X10*3/uL Absolute Neuts (auto) 7.4 (2.0-8.3) x10*3/uL Absolute Nucleated RBC 0.000 (0.0-0.012) X10*3/uL Nucleated RBC % (auto) 0.0 (0.0-0.2) /100WBC ESR 9 (0-15) MM/HR Hold Purple Top SEE NOTE Sodium 138 (135-145) mmol/L Potassium 4.0 (3.3-5.1) mmol/L Chloride 106 (96-108) mmol/L Carbon Dioxide 23 (22-29) mmol/L Anion Gap 13 (12-20) BUN 10 (9-16) mg/dL Creatinine 0.74 (0.5-1.4) mg/dL Estim Creat Clear Calc 127.9 Estimated GFR > 60 Random Glucose 97 (60-115) mg/dL Calcium 9.7 (8.4-10.2) mg/dL Troponin I High Sens < 2.7 (<3.5-35.0) ng/L C-Reactive Protein 1.40 H (< or = 0.50) mg/dL Influenza Type A (PCR) NEGATIVE (Negative) Influenza Type B (PCR) NEGATIVE (Negative) RSV RNA Qual (PCR) NEGATIVE (Negative) SARS-CoV-2 RNA (RT-PCR) NEGATIVE (Negative) S. pyogenes GrpA LRONA Negative (Negative) Radiology Impression Discussion of test interpretation with radiology: I have reviewed the radiologist's reading. External Record Review External record reviewed: Inpatient record, Office record, Outpatient record, Prior outpatient labs, Prior outpatient radiology, Primary care record and Outside ED record Tests considered The following testing was considered but not selected: As above Prescription Management I considered prescription management with: Pain Medication and Antibiotic Chronic Conditions Patient?s care impacted by: Other Critical Care Time Critical Care Time Critical Care Time: Yes Total Critical Care Time: 50 Attestation: I have personally provided critical care time exclusive of time spent on separately billable procedures. Time includes review of lab data, radiology results, discussion with consultants, and monitoring for potential decompensation. Intervention performed as documented. Discharge Plan Discharge Clinical Impression: Tonsillar abscess Patient Disposition: [facility] Prescriptions: No Action atorvastatin 10 mg tablet 10 mg PO DAILY Qty: 30 1RF Proair Digihaler 90 mcg/actuation aero powdr breath act w/sensor 2 inh inhalation Q4-6H PRN (Reason: shortness of breath or wheezing) Qty: 1 0RF metformin 500 mg tablet 1,000 mg PO BID 90 Days Qty: 360 2RF lisinopril 10 mg tablet 10 mg PO DAILY Qty: 30 5RF fluticasone propion-salmeterol [Advair Diskus] 250-50 mcg/dose blister with device 1 ea INHALATION BID Qty: 60 11RF semaglutide 2 mg/dose (8 mg/3 mL) pen injector 2 mg subcut QWEEK Qty: 3 11RF Print Language: Slovenian
[2023-11-17] MEDS: 0.9 % Sodium Chloride 1,000 ML 999 ML IV (12:30)
[2023-11-17 12:32] LABS: MANUAL DIFF FLAG NO
[2023-11-17 12:36] LABS: Basophils Percent Auto 0.3 % (0-2); Eosinophils Absolute Auto 0.3 X10*3/uL (0.0-0.4); Eosinophils Percent Auto 2.2 % (0-4); Hematocrit 46.1 % (42.0-52.0); Hemoglobin 16.5 g/dl (14.0-18.0); Imm Gran Abs Auto 0.04 X10*3/uL (0.00-0.03); Imm Gran Pct Auto 0.3 % (0.0-0.4); Lymphocytes Absolute Auto 2.9 X10*3/uL (1.2-4.9); Lymphocytes Percent Auto 24.5 % (20-40); Mean Corpuscular HGB Conc 35.8 g/dl (31.0-36.0); Mean Corpuscular Hemoglobin 30.3 pg (27.0-33.0); Mean Corpuscular Volume 84.7 fL (80.0-98.0); Mean Platelet Volume 9.8 fL (9.4-12.4); Monocytes Absolute Auto 1.2 X10*3/uL (0.1-1.2); Monocytes Percent Auto 9.7 % (2-11); Neutrophils Absolute Auto 7.4 x10*3/uL (2.0-8.3); Platelet Count 207 X10*3/uL (160-400); Red Blood Count 5.44 X10*6/uL (4.60-5.80); Red Cell Distribution Width 12.9 % (11.0-16.0); White Blood Count 11.8 X10*3/uL (4.8-10.8)
[2023-11-17] MEDS: Ketorolac Tromethamine 30 MG/ML VIAL IVPUSH (12:41)
[2023-11-17 12:50] LABS: Anion Gap 13 (12-20); Blood Urea Nitrogen 10 mg/dL (9-16); Calcium 9.7 mg/dL (8.4-10.2); Carbon Dioxide 23 mmol/L (22-29); Chloride 106 mmol/L (96-108); Creatinine Clr Calc Pharmacy 127.9; Estimated Glomerular Filt Rate > 60; Glucose Random 97 mg/dL (60-115); Sodium 138 mmol/L (135-145)
[2023-11-17 13:16] LABS: Erythrocyte Sedimentation Rate 9 MM/HR (0-15)
[2023-11-17] MEDS: iohexoL 350 MG/ML 100 ML INFUS..BTL IV (13:22)
[2023-11-17] MEDS: fentaNYL citrate/PF 100 MCG/2 ML VIAL 25 MCG IVPUSH (14:22)
[2023-11-17 14:55] VITALS: BP 130/78; PULSE 61; RESP 16; TEMP 36.9; O2SAT 95
[2023-11-17] MEDS: dexAMETHasone sod phosphate 10 MG/ML VIAL IVPUSH (15:56)
[2023-11-17] MEDS: Ampicillin Sodium/Sulbactam Na 3 GM in 0.9 % Sodium Chloride 100 ML IV ×2 (15:57→20:02)
[2023-11-17 15:58] VITALS: O2SAT 98
--- NOTE | 2023-11-17 16:05 | PC.NURSE ---
Addendum entered by Theresa Delgadillo 11/17/23 16:18: PT medicated per may for AMPICILLIN, Decadron given PO per Verbal order from PA. IV location shows no signs of infiltration, 20g IV in left AC patent with positive blood return. Original Note: PT medicated per may. IV location show no signs of infiltration, IV patent with positive blood return.
--- NOTE | 2023-11-17 17:06 | PM.IMHP ---
History of Present Illness Date of Service: 11/17/23 Chief Complaint: Sore throat 53-year-old gentleman with past medical history of tonsillectomy, hypertension, asthma, type 2 diabetes mellitus, GERD, current smoker, prior history of peritonsillar abscess treated a year ago with IV antibiotics had no follow-up with ENT physician presented to [facility] load several days of sore throat that got worsened yesterday, he also developed left ear pain denies associated fever, no chills, no sinus pressure, no headache, no lightheadedness or dizziness has not been checking blood sugars at home but is compliant with medications, has been tolerating diet but since pain was getting worse he presented to [place] emergency room where a CT neck showed moderate mucosal thickening and edema of the left aspect of the oropharynx and potential subcentimeter pocket of fluid within the left palatine tonsil, concerning for recurrent tonsillar abscess, [id number] narrowing of the supraglottic airway, since patient is able to clear his secretions, able to swallow, and on examination has midline uvula, will admit to hospital for IV antibiotics, ED provider spoke with ENT at [facility] they recommended IV antibiotics and no surgical intervention at this time. Review of Systems Review of Systems: General no headache, no dizziness no fever chills. CVS no chest pain, no palpitation. Respiratory no cough, no sob Gastrointestinal no nausea no vomiting, no abdominal pain no urgency, no frequency Musculoskeletal no complaints Skin no rash All other system reviewed and are negative. [facility] Medical History DMII (diabetes mellitus, type 2) History of renal calculi Obstructive sleep apnea Fatty liver Vitamin D deficiency Obesity (BMI 30-39.9) Mood disorder Asthma Hypercholesterolemia Alcohol abuse Tobacco abuse Family History Father CAD (coronary artery disease) CVD (cardiovascular disease) Hypertension Mother Hypertension Maternal Grandfather Colon cancer Maternal Uncle Myocardial infarction Surgical History History of removal of cyst History of tonsillectomy Social History Household Members: Spouse and Children Housing: House Do you presently have visiting nurse or other home services: No Alcohol intake: current Alcohol intake frequency: a few times a month Alcohol type: beer and hard liquor Patient Tobacco Use Status: Former Tobacco user Tobacco use type: Cigarette Cigarette Packs Per Day: 0.25 Cigarettes Per Day: 5.0 Years Smoked: 30 Smoked in Last 30 Days: No e-Cigarette/Vaping Use: Never Used Second Hand Smoke Exposure: No Substance Use Type: Marijuana Advance Directives: No Advance Directives Information Provided: No service: No Current occupational status: employed Sexual orientation: Straight/Heterosexual Cognitive needs: No Hearing needs: No Vision needs: No Meds Allergies Allergy/AdvReac Type Severity Reaction Status Date / Time seafood Allergy Severe Hives Verified 11/17/23 09:38 pollen extracts [POLLEN] Allergy Unknown UNKNOWN Verified 11/17/23 09:38 seasonal allergies Allergy Unknown Unknown Uncoded 10/10/23 10:15 Active Medications: Current Medications Acetaminophen (Acetaminophen 325 Mg Tablet) 650 mg PO Q6H PRN PRN Reason: Pain, Mild (Pain Scale 1-3), fever or headache Calcium Carbonate (Calcium Carbonate 750 Mg Tab.Chew) 750 mg PO Q4H PRN PRN Reason: Heartburn Enoxaparin Sodium (Enoxaparin Sodium 40 Mg/0.4 Ml Syringe) 40 mg SUBCUT Q24H PANCHO Magnesium Hydroxide (Milk Of Magnesia 30 Ml Oral.Susp) 30 ml PO DAILY PRN PRN Reason: Constipation Melatonin (Melatonin 3 Mg Tablet) 6 mg PO BEDTIME PRN PRN Reason: Insomnia Sodium Chloride (0.9 % Sodium Chloride Flush 3 Ml Syringe) 3 ml IVFLUSH QSHIFT [facility] Home Medications ?Medication ?Instructions ?Recorded ?Confirmed ?Last Taken ?Type dulaglutide 1.5 mg/0.5 mL 1.5 mg subcut SA 11/17/23 11/17/23 11/15/23 History subcutaneous pen injector (Trulicity) Physical Exam Vital Signs and Narrative: Vital Signs: Last Vital Signs Temp 98.5 F 11/17/23 14:55 Pulse 61 11/17/23 14:55 Resp 16 11/17/23 14:55 BP 130/78 11/17/23 14:55 Pulse Ox 98 11/17/23 15:58 O2 Del Method Room Air 11/17/23 15:58 BMI result Body Mass Index 35.7 Const: Other: General awake alert x3, in no acute distress. Face mild left facial swelling and tenderness to palpation, no erythema Neck trachea midline, mild tenderness and palpable left submandibular lymph node Oral cavity, midline uvula, swelling left posterior oropharynx, no drooling Left ear normal tympanic membrane, no hyperemia, no bulging CVS regular rate rhythm, Respiratory lungs clear to auscultation, no respiratory distress, no wheeze, no rhonchi. Gastrointestinal abdomen soft, nontender, bowel sounds audible Extremities no edema. Neuro non focal Skin no rash Psych appropriate affect Results Labs 11/17/23 12:25 11/17/23 12:25 Labs: Laboratory Results - last 24 hr 11/17/23 11/17/23 11/17/23 09:51 10:06 12:25 MCV 84.7 MCH 30.3 MCHC 35.8 RDW 12.9 Plt Count 207 MPV 9.8 Immature Gran % (Auto) 0.3 Neut % (Auto) 63.0 Lymph % (Auto) 24.5 Bell % (Auto) 9.7 Eos % (Auto) 2.2 Baso % (Auto) 0.3 Lymph # (Auto) 2.9 Bell # (Auto) 1.2 Eos # (Auto) 0.3 Baso # (Auto) 0.0 Abs Immat Gran (auto) 0.04 H Absolute Neuts (auto) 7.4 Absolute Nucleated RBC 0.000 Nucleated RBC % (auto) 0.0 ESR 9 Hold Purple Top SEE NOTE Anion Gap 13 Estim Creat Clear Calc 127.9 Estimated GFR > 60 Random Glucose 97 Calcium 9.7 Troponin I High Sens < 2.7 C-Reactive Protein 1.40 H Influenza Type A (PCR) NEGATIVE Influenza Type B (PCR) NEGATIVE RSV RNA Qual (PCR) NEGATIVE SARS-CoV-2 RNA (RT-PCR) NEGATIVE S. pyogenes GrpA LORNA Negative Imaging Radiologist's Impressions: Impressions Soft Tissue Neck CT 11/17/23 13:25 IMPRESSION: 1. Moderate mucosal thickening/edema along the left aspect of the oropharynx/left palatine tonsil extending into the left aspect of the supraglottic larynx. Amorphous hyperemia along the mucosa of the left glossotonsillar sulcus and left palatine tonsil at the site of previous tonsillar abscess and 2022. Potential subcentimeter pocket of fluid within the left palatine tonsil (0.7 x 0.4 cm). Mild to moderate narrowing of the supraglottic airway. Otherwise, the airways remains widely patent. This may represent sequela of recurrent tonsillar abscess. Recommend close attention after treatment of the acute symptoms to exclude additional underlying lesions. 2. No demonstrated additional discrete fluid collection within the deep tissues of the neck. 3. Mildly prominent left-sided cervical chain lymph nodes are similar to mildly decreased in size compared to 2023. No demonstrated progression of lymphadenopathy compared to 2023. Assessment and Plan (1) Tonsillar abscess: Status: Acute (2) Hypertension: Status: Acute Plan 53-year-old male with PMHx of tonsillectomy, hypertension, asthma, T2 DM, smoking, GERD, presenting to the emergency department with symptoms of sore throat, painful swelling and left ear pain of 1 week duration that got worsened since yesterday CT neck showed small peritonsillar abscess patient is being admitted for IV antibiotics. Acute left peritonsillar abscess IV Unasyn 300 mg q.6 hours Clear liquid diet/analgesics/IV fluids No sepsis follow blood cultures Diabetes mellitus type 2 Insulin sliding scale, hold home medications metformin and Trulicity. Hyperlipidemia hold statins Class 2 obesity recommend low-calorie diet Tobacco use disorder counseling done patient declined nicotine patch Mild persistent asthma no acute exacerbation, continue home inhalers Full code Lovenox Patient will require 2 night inpatient hospitalization for management of left acute peritonsillar abscess requiring IV antibiotics and close respiratory monitoring. Quality Stroke Does the patient have a stroke diagnosis?: No VTE Prior VTE?: No VTE Risk Level:: Medical - moderate - high VTE Device Contraindication: Treatment Not Indicated VTE Drug Contraindication: N/A - Med Ordered
--- NOTE | 2023-11-17 17:11 | PC.NURSE ---
Patient 20G Iv on left AC flushed. No signs of infiltration positive blood return.
[2023-11-17] MEDS: Enoxaparin Sodium 40 MG/0.4 ML SYRINGE SUBCUT (17:53)
--- NOTE | 2023-11-17 18:14 | PC.NURSE ---
PT Medicated per MAY @ 1752 received injection in Left lower quadrant, no bruising around area noted.
--- NOTE | 2023-11-17 18:43 | PHA.MEDREC ---
Addendum entered by Augusto Maria [facility] 11/17/23 19:33: MED REC CHECKED BY [facility] Original Note: Pharmacy Consult ? Medication Reconciliation Pharmacy has completed the medication reconciliation. Confirmed medication with patient. Only thing patient was not sure about was if he was on Atorvastatin 10mg; he knows he has some at home but his takes care of that more he states and is unsure if hes really taking it; but claims shows he got a 90 day supply 08/29/2023 so I kept it in claims. Patient also confirmed his Insulin Trulicity 1.5mg/5mL every Friday and he confirmed he took it this past Friday11/15/23.
[2023-11-17 20:56] VITALS: BP 132/80; PULSE 65; RESP 16; TEMP 36.7; O2SAT 93
--- NOTE | 2023-11-17 21:03 | PC.NURSE ---
pt resting quietly in exam room- rec 2nd dose of unasyn- IV site asymptomatic- no additional complaints offered by pt at this time. plan is for [facility] to be [facility] for further tx- call vargas within reach
[2023-11-17 22:27] VITALS: BP 115/67; PULSE 72; RESP 16; TEMP 36.8; O2SAT 97
--- NOTE | 2023-11-17 22:46 | PC.NURSE ---
pt resting quietly in exam room- eyes closed, rise and fall of chest noted- no apparent distress- call vargas within reach
--- NOTE | 2023-11-17 23:03 | PC.NURSE ---
report given to Tyree RN
[2023-11-18] MEDS: Ampicillin Sodium/Sulbactam Na 3 GM in 0.9 % Sodium Chloride 100 ML IV (02:28)
[2023-11-18 03:23] VITALS: BP 133/85; PULSE 64; RESP 15; O2SAT 93
[2023-11-18 05:26] VITALS: BP 126/80; PULSE 59; RESP 16; TEMP 36.9; O2SAT 96
--- NOTE | 2023-11-18 05:31 | MHC.EDTECH ---
This pct just assumed care of Patient ,vitals taken ,and Patient was hooked up to cardiac technician ,Call vargas within Pt reach .
--- NOTE | 2023-11-18 05:45 | MHC.EDTECH ---
Patient prefer to keep his jeans on .
--- NOTE | 2023-11-18 07:16 | PC.NURSE ---
reprot recieved from previous RN, patient resting comfortably on stretcher, patient telling this RN that he does not wish to be admitted anymore, he would like to go home, this RN attempted to educate patient on why he was being admitted, patient verbalizes understanding, however states he does not want to miss work and he would like to leave today. admitting MD made aware.
[2023-11-18 08:20] VITALS: BP 138/87; PULSE 72; RESP 12; TEMP 36.8; O2SAT 97
--- NOTE | 2023-11-18 08:28 | PC.NURSE ---
into room to speak with patient, patient refusing treatment and breakfast tray, states he does not want to be here another minute and wants to go home, admitting MD texted again, supervision texted to give bed up as patient refusing to stay in hospital
--- NOTE | 2023-11-18 08:45 | MHC.CM.PN ---
CM met with Patient at bedside, in the ED. 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 Home/self care is the goal and CM has initiated and will follow for dc planning/. PCP is Dr. Ed Agarwal.
--- NOTE | 2023-11-18 10:01 | PM.DS ---
DS: Providers Provider Date of Service: 11/18/23 Date of admission: 11/17/23 16:58 Date of discharge: 11/18/23 Primary care physician: Ed Agarwal MD DS: Diagnosis Discharge Diagnosis (1) Tonsillar abscess: Status: Acute (2) Hypertension: Status: Acute DS: Summary Hospital Course Hospital Course: Date of Service: 11/17/23 Chief Complaint: Sore throat 53-year-old gentleman with past medical history of tonsillectomy, hypertension, asthma, type 2 diabetes mellitus, GERD, current smoker, prior history of peritonsillar abscess treated a year ago with IV antibiotics had no follow-up with ENT physician presented to [facility] load several days of sore throat that got worsened yesterday, he also developed left ear pain denies associated fever, no chills, no sinus pressure, no headache, no lightheadedness or dizziness has not been checking blood sugars at home but is compliant with medications, has been tolerating diet but since pain was getting worse he presented to [place] emergency room where a CT neck showed moderate mucosal thickening and edema of the left aspect of the oropharynx and potential subcentimeter pocket of fluid within the left palatine tonsil, concerning for recurrent tonsillar abscess, [id number] narrowing of the supraglottic airway, since patient is able to clear his secretions, able to swallow, and on examination has midline uvula, will admit to hospital for IV antibiotics, ED provider spoke with ENT at [facility] they recommended IV antibiotics and no surgical intervention at this time. Hospital course: 53-year-old male with PMHx of tonsillectomy, hypertension, asthma, T2 DM, smoking, GERD, presented to [facility] due to gradually worsening symptoms of sore throat, left ear pain and painful swelling ,CT neck showed small left peritonsillar abscess therefore patient admitted to [facility] for IV antibiotic and placed on IV Unasyn 300 mg q.6 hours, IV fluids and analgesics blood cultures were sent patient's symptoms rapidly improved left ear pain resolved he is able to swallow and wishes to be discharged home since patient is hemodynamically stable and tolerating diet will discharge him on Augmentin 875 mg b.i.d. for 1 week recommend to continue soft diet, salt water gargles and returned to check with recurrent symptoms, recommend outpatient ENT follow-up due to recurrent episodes of peritonsillar abscess. In regard to Diabetes mellitus type 2 recommend to resume home medications and follow diabetic diet and good blood sugar control. Hyperlipidemia continue statins Class 2 obesity recommend low-calorie diet Tobacco use disorder counseling done. Mild persistent asthma no acute exacerbation, continue home inhalers. Time Attestation Discharge Coordination Time (in mins): 36 Quality: Safe Use of Opioids Does Pt have an Active Cancer Diagnosis on the Problem List?: No Quality: Stroke Does the patient have a stroke diagnosis?: No Physical Exam Vital Signs: Vital Signs: Last Vital Signs Temp 98.2 F 11/18/23 08:20 Pulse 72 11/18/23 08:20 Resp 12 11/18/23 08:20 BP 138/87 11/18/23 08:20 Pulse Ox 97 11/18/23 08:20 O2 Del Method Room Air 11/18/23 08:20 BMI result Body Mass Index 35.7 Const: Other: General awake alert x3, in no acute distress. Facial swelling resolved Neck no tenderness to palpation, small palpable left submandibular lymph node. Oral cavity, midline uvula,no drooling Left ear normal tympanic membrane, no hyperemia, no bulging CVS regular rate rhythm, Respiratory lungs clear to auscultation, no respiratory distress, no wheeze, no rhonchi. Gastrointestinal abdomen soft, nontender, bowel sounds audible Extremities no edema. Neuro non focal Skin no rash Psych appropriate affect DS: Data Data Completed and Pending Labs on day of discharge: Laboratory Results - last 24 hr 11/17/23 11/17/23 11/17/23 09:51 10:06 12:25 WBC 11.8 H RBC 5.44 Hgb 16.5 Hct 46.1 MCV 84.7 MCH 30.3 MCHC 35.8 RDW 12.9 Plt Count 207 MPV 9.8 Immature Gran % (Auto) 0.3 Neut % (Auto) 63.0 Lymph % (Auto) 24.5 Crisp % (Auto) 9.7 Eos % (Auto) 2.2 Baso % (Auto) 0.3 Lymph # (Auto) 2.9 Crisp # (Auto) 1.2 Eos # (Auto) 0.3 Baso # (Auto) 0.0 Abs Immat Gran (auto) 0.04 H Absolute Neuts (auto) 7.4 Absolute Nucleated RBC 0.000 Nucleated RBC % (auto) 0.0 ESR 9 Hold Purple Top SEE NOTE Sodium 138 Potassium 4.0 Chloride 106 Carbon Dioxide 23 Anion Gap 13 BUN 10 Creatinine 0.74 Estim Creat Clear Calc 127.9 Estimated GFR > 60 Random Glucose 97 Calcium 9.7 Troponin I High Sens < 2.7 C-Reactive Protein 1.40 H Influenza Type A (PCR) NEGATIVE Influenza Type B (PCR) NEGATIVE RSV RNA Qual (PCR) NEGATIVE SARS-CoV-2 RNA (RT-PCR) NEGATIVE S. pyogenes GrpA LORNA Negative Discharge Plan Discharge Anticipated Discharge Date/Time: 11/18/23 09:59 Patient Disposition: Home, Self-Care Discharge Diagnosis: Peritonsillar abscess Referrals: Po,Ed Mann MD [Primary Care Provider] - 1 Week Discharge Medications: New amoxicillin-pot clavulanate 875-125 mg tablet 1 tab PO BID Qty: 14 0RF Continued atorvastatin 10 mg tablet 10 mg PO DAILY Qty: 30 1RF Proair Digihaler 90 mcg/actuation aero powdr breath act w/sensor 2 inh inhalation Q4-6H PRN (Reason: shortness of breath or wheezing) Qty: 1 0RF Trulicity 1.5 mg/0.5 mL pen injector 1.5 mg subcut SA metformin 500 mg tablet 1,000 mg PO BID 90 Days Qty: 360 2RF lisinopril 10 mg tablet 10 mg PO DAILY Qty: 30 5RF fluticasone propion-salmeterol [Advair Diskus] 250-50 mcg/dose blister with device 1 ea INHALATION BID Qty: 60 11RF Discharge Orders: Discharge Order (Routine); Ordered 11/18/23 Ordered By: Tae Mayo Diet: Diabetic diet Activity on Discharge: As tolerated Stand Alone Forms: Patient Portal Discharge page Print Language: Lithuanian Care Plan Goals: Take Augmentin 1 tablet twice daily for 7 days Salt water gargles Soft diet for next 3-4 days Health Concerns: Diabetes Plan of Treatment: Outpatient follow-up with primary care physician call for appointment Assessment: As above Discharge Date/Time: 11/18/23 10:09
[2023-11-18 10:11] VITALS: BP 170/79; PULSE 72; RESP 20; TEMP 36.4; O2SAT 96
--- NOTE | 2023-11-18 10:15 | MHC.CM.PN ---
Patient has been medically cleared for dc to home today, self care.
== END 2023-11-18 10:09 | disposition home or self-care (01) | DRG 113 ==
LOC: HO.ED 17:13 → HO.EDOVER 17:14 → HO.IMC 11-18 07:53 → HO.EDOVER 11-18 09:22
PROVIDERS: Physician Assistant; Admitting Provider Hospitalist; Emergency Provider Emergency Medicine; PCP Internal Medicine; Visit Provider Hospitalist
DX: J36 Peritonsillar abscess (principal); E11.9 Type 2 diabetes mellitus without complications; G47.33 Obstructive sleep apnea (adult) (pediatric); K21.9 Gastro-esophageal reflux disease without esophagitis; F17.210 Nicotine dependence, cigarettes, uncomplicated; Z71.6 Tobacco abuse counseling; E78.5 Hyperlipidemia, unspecified; J45.30 Mild persistent asthma, uncomplicated; E66.8 Other obesity; Z68.35 Body mass index [BMI] 35.0-35.9, adult; Z71.3 Dietary counseling and surveillance; Z20.822 Contact with and (suspected) exposure to COVID-19; Z79.51 Long term (current) use of inhaled steroids; Z79.84 Long term (current) use of oral hypoglycemic drugs; Z79.85 Long-term (current) use of injectable non-insulin antidiabetic drugs; Z79.899 Other long term (current) drug therapy
CPT/HCPCS: 0241U; 36415; 70491; 80048; 84484; 85025; 85652; 86140; 87040; 87651; 99222; 99285; J0295; J1100; J1650; J1885; J3010; Q9967

== ENCOUNTER → 2023-11-17 16:58 | Outpatient (BNV) | payer OTHER, SELFPAY | PROVIDERS: Admitting Provider Hospitalist; Emergency Provider Emergency Medicine; PCP Internal Medicine; Visit Provider Hospitalist | DX: J36 Peritonsillar abscess (principal); I10 Essential (primary) hypertension | CPT/HCPCS: 99223; 99239 ==

== ENCOUNTER 2023-11-28 13:47 | Outpatient (AMB) | payer OTHER, SELFPAY ==
[2023-11-28 13:48] VITALS: BP 130/86; PULSE 80; O2SAT 94; BMI 34.7
--- NOTE | 2023-11-28 13:48 | MHC.PC.OV ---
Vital Signs 11/28/23 13:48 Height 5 ft 6 in Weight 215 lb BMI 34.7 BP 130/86 Blood Pressure Location Lt brachial Position Sitting Pulse 80 Pulse Source Pulse Oximeter Pulse Oximetry (%) 94 Oxygen Delivery Method Room Air Intake Visit Reasons: [facility] 11/16 Acute Peritonsillar Abscess Intake Note: Patient is here to follow-up after a visit the emergency department at [facility] on 11/16 Hat And Cap Sewer Required: No Allergies seafood Allergy (Severe, Verified 11/28/23 13:49) Hives pollen extracts [POLLEN] Allergy (Unknown, Verified 11/28/23 13:49) UNKNOWN seasonal allergies Allergy (Unknown, Uncoded 11/28/23 13:49) Unknown Medication List - Last Reconciled 11/28/23 by Winter Ying PA-C albuterol sulfate 90 mcg/actuation (Proair Digihaler) 2 inhalations inhalation Q4-6H PRN atorvastatin 10 mg PO DAILY dulaglutide (Trulicity) 1.5 mg subcut SA fluticasone propion-salmeterol 250-50 mcg/dose (Advair Diskus) 1 ea inhalation BID lisinopril 10 mg PO DAILY metformin 1,000 mg (2 x 500 mg) PO BID 90 days Tobacco use date assessed: 08/29/23 Dental Screening Dental Screen Date: 10/10/23 HPI [facility] 11/16 Acute Peritonsillar Abscess HPI Details 53-year-old obese male smoker with uncontrolled diabetes mellitus hypercholesterolemia asthma hypertension GERD generalized anxiety disorder coming in for hospital follow up. In review of the notes, patient was seen in [facility] ED 11/17/[address]23 for sore throat[address] CT neck showed evidence of recurrent tonsillar abscess. Patient was admitted for IV antibiotics and ENT was consulted recommended no surgical intervention.?Symptoms rapidly improved and patient was discharged home 11/18/2023 recommended outpatient follow up with the ENT. Today he tells us he is feeling much better and no longer is having any symptoms. Denies any fever or sore throat and has been able to have a solid diet without any issue. He has not yet heard from ear nose and throat as far as the referral. [facility] Medical History DMII (diabetes mellitus, type 2) History of renal calculi Obstructive sleep apnea Fatty liver Vitamin D deficiency Obesity (BMI 30-39.9) Mood disorder Asthma Hypercholesterolemia Alcohol abuse Tobacco abuse Surgical History History of removal of cyst History of tonsillectomy Family History Father CAD (coronary artery disease) CVD (cardiovascular disease) Hypertension Mother Hypertension Maternal Grandfather Colon cancer Maternal Uncle Myocardial infarction Social History Household Members: Spouse and Children Housing: House Do you presently have visiting nurse or other home services: No Alcohol intake: current Alcohol intake frequency: a few times a month Alcohol type: beer and hard liquor Patient Tobacco Use Status: Former Tobacco user Tobacco use type: Cigarette Cigarette Packs Per Day: 0.25 Cigarettes Per Day: 5.0 Years Smoked: 30 e-Cigarette/Vaping Use: Never Used Second Hand Smoke Exposure: No Substance Use Type: Marijuana service: No Current occupational status: employed Sexual orientation: Straight/Heterosexual Cognitive needs: No Hearing needs: No Vision needs: No Questionnaire PHQ-9 Over the last 2 weeks, how often have you been bothered by any of the following problems? 1. Little interest or pleasure in doing things: not at all 2. Feeling down, depressed, or hopeless: not at all 3. Trouble falling or staying asleep, or sleeping too much: not at all 4. Feeling tired or having little energy: not at all 5. Poor appetite or overeating: not at all 6. Feeling bad about yourself - or that you are a failure or have let yourself or your family down: not at all 7. Trouble concentrating on things, such as reading the newspaper or watching television: not at all 8. Moving or speaking so slowly that other people could have noticed. Or the opposite - being so fidgety or restless that you have been moving around a lot more than usual: not at all 9. Thoughts that you would be better off or of hurting yourself in some way: not at all Total score: 0 Depression Screening Interpretation: Negative Depression Screening Done: Yes Source: Developed by Drs. Raffi Leung, Maria Esther Finney, Fam Camilo and colleagues, with an educational sawyer from [employer]. Thrive Questionnaire Date Thrive assessed: 11/18/23 AUDIT C Alcohol Use Questionnaire (AUDIT-C) 1. How often do you have a drink containing alcohol?: Monthly or less 2. How many drinks containing alcohol do you have on a typical day when you are drinking?: 1 or 2 3. How often do you have six or more drinks on one occasion?: Never Total Score: 1 Score Reviewed/Action Taken: Yes (no action needed) SIMON-7 AMB Questionnaire SIMON-7 Date SIMON - 7 assessed: 08/29/23 Source: Developed by Drs. Raffi Leung, Maria Esther Finney, Fam Camilo and colleagues, with an educational sawyer from [employer]. Review of Systems Const Denies body aches, Denies chills and Denies fever(s) Eyes Reports no additional complaints ENT Denies change in voice, Denies dry mouth, Denies otalgia, Denies sore throat and Denies throat swelling Card Denies chest pain and Denies dyspnea Resp Denies cough and Denies dyspnea GI Reports no additional complaints Reports no additional complaints Musc Reports no additional complaints Aller/Immun Denies throat swelling Physical exam (Primary Care) Vital Signs: Last Vital Signs Pulse 80 11/28/23 13:48 BP 130/86 11/28/23 13:48 Pulse Ox 94 11/28/23 13:48 Oxygen Delivery Method Room Air 11/28/23 13:48 BMI result Body Mass Index 34.7 Tobacco/Smoking Status: Tobacco use Status Tobacco use date assessed 08/29/23 11/28/23 13:48 Patient Tobacco Use Status Former Tobacco user 11/28/23 13:48 Tobacco use type Cigarette 11/28/23 13:48 e-Cigarette/Vaping Use Never Used 11/28/23 13:48 PHQ-9: PHQ-9 Score PHQ-9: Total score 0 11/28/23 15:01 Depression Screening Interpretation: Negative Thrive Assessment: Date of Thrive Assessment Date Thrive assessed 11/18/23 11/28/23 13:48 Const General: cooperative, healthy appearing, comfortable and no acute distress Orientation/consciousness: patient oriented x3 HENMT Head: Yes normocephalic Ears: hearing grossly normal bilaterally General nose exam: Normal external nose present Mouth: oropharynx normal Eyes General: appearance normal, both eyes and all related structures Conjunctivae: conjunctivae normal Neck Neck: Yes full ROM and Yes no lymphadenopathy Resp Effort & Inspection: normal respiratory effort Auscultation: clear to auscultation bilaterally, no crackles, no rales, no rhonchi and no wheezes Cardio Rate: regular rate Rhythm: regular rhythm Skin General skin exam: no rashes or lesions noted Neuro General: patient oriented x3 Gait exam (Neuro): Normal gait present Extrem General: Yes normal to inspection, Yes full ROM and No edema Psych Affect: normal affect Attitude: cooperative Insight: Good insight present (Psych) Judgement: Good judgement present (Psych) Assessment and Plan Assessment & Plan (1) Tonsillar abscess: Code(s): J36 - Peritonsillar abscess Plan: Patient has now had 2 episodes of recurrent peritonsillar abscess. Surgery was not recommended during his last episode and was treated with IV antibiotics with good relief. Patient's symptoms have completely resolved. Referral placed for ear nose and throat to follow up. Plan This note was constructed using voice recognition software. While every effort has been made to ensure accuracy and performance improvement analyst, still areas may have been included sometimes these areas may affect the content or meeting of the given symptoms. Total time spent caring for the patient today was 20 minutes. This includes time spent before the visit reviewing the chart, time spent during the visit, and time spent after the visit and documentation. Orders: Referrals Ear/Nose/Throat Referral J36 - Peritonsillar abscess Coding Level of Care Code Est Pt Level 3 (95620) Diagnoses Tonsillar abscess J36 Additional Codes PHQ-9 - 62662 - PHQ-9 Billing: ([id number])
== END 2023-11-28 14:23 | disposition home or self-care (01) ==
PROVIDERS: PCP Internal Medicine
DX: J36 Peritonsillar abscess (principal)
CPT/HCPCS: 99213

== ENCOUNTER → 2024-02-20 11:10 | Outpatient (BNVA) | payer OTHER, SELFPAY | PROVIDERS: PCP Internal Medicine; Visit Provider Internal Medicine | DX: Z00.00 Encounter for general adult medical examination without abnormal findings (principal); E11.65 Type 2 diabetes mellitus with hyperglycemia; E78.00 Pure hypercholesterolemia, unspecified; J45.20 Mild intermittent asthma, uncomplicated; E66.9 Obesity, unspecified; K21.9 Gastro-esophageal reflux disease without esophagitis; G47.33 Obstructive sleep apnea (adult) (pediatric); I10 Essential (primary) hypertension; F10.10 Alcohol abuse, uncomplicated; J30.89 Other allergic rhinitis; Z72.0 Tobacco use | CPT/HCPCS: 83036; 96127; 99396 ==

== ENCOUNTER → 2024-02-20 11:10 | Outpatient (AMB) | payer OTHER, SELFPAY ==
[2024-02-20 11:18] VITALS: BP 148/88; PULSE 81; O2SAT 98; BMI 36.3
--- NOTE | 2024-02-20 11:18 | MHC.PC.OV ---
Vital Signs 02/20/24 11:18 02/20/24 11:50 Height 5 ft 6 in Weight 225 lb BMI 36.3 BP 148/88 H 142/84 H Blood Pressure Location Lt brachial Lt brachial Position Sitting Sitting Pulse 81 Pulse Source Pulse Oximeter Pulse Oximetry (%) 98 Oxygen Delivery Method Room Air Intake Visit Reasons: Annual Exam Allergies seafood Allergy (Severe, Verified 02/20/24 11:19) Hives pollen extracts [POLLEN] Allergy (Unknown, Verified 02/20/24 11:19) UNKNOWN seasonal allergies Allergy (Unknown, Uncoded 02/20/24 11:19) Unknown Medication List - Last Reconciled 02/20/24 by Ed Agarwal MD albuterol sulfate 90 mcg/actuation (Proair Digihaler) 2 inhalations inhalation Q4-6H PRN atorvastatin 10 mg PO DAILY dulaglutide (Trulicity) 1.5 mg (0.5 mL) subcut SA fluticasone propion-salmeterol 250-50 mcg/dose (Advair Diskus) 1 ea inhalation BID lisinopril 10 mg PO DAILY metformin 1,000 mg (2 x 500 mg) PO BID 90 days Tobacco use date assessed: 08/29/23 Dental Screening Dental Screen Date: 10/10/23 HPI Annual Exam HPI Details 53-year-old obese male smoker with a history of asthma, hypercholesterolemia obstructive sleep apnea diabetes mellitus GERD hypertension coming in for physical exam. Last seen in November 27 having tonsillar abscess IV antibiotics given. Patient is here for physical exam. drinks soda despited advise to stop PFSH Medical History (Updated 02/20/24 @ 12:09 by Ed Agarwal MD) DMII (diabetes mellitus, type 2) History of renal calculi Obstructive sleep apnea Fatty liver Vitamin D deficiency Obesity (BMI 30-39.9) Mood disorder Asthma Hypercholesterolemia Alcohol abuse Tobacco abuse Surgical History History of removal of cyst History of tonsillectomy Family History Father CAD (coronary artery disease) CVD (cardiovascular disease) Hypertension Mother Hypertension Maternal Grandfather Colon cancer Maternal Uncle Myocardial infarction Social History (Updated 02/20/24 @ 11:54 by Ed Agarwal MD) Household Members: Spouse and Children Housing: House Do you presently have visiting nurse or other home services: No Alcohol intake: current Alcohol intake frequency: a few times a month Alcohol type: beer and hard liquor Comment: once a week 7-8 beers - discussed about stopping Patient Tobacco Use Status: Current everyday Tobacco user Tobacco use type: Cigarette Cigarette Packs Per Day: 0.25 Cigarettes Per Day: 6 Years Smoked: 30 e-Cigarette/Vaping Use: Never Used Second Hand Smoke Exposure: No Substance Use Type: Marijuana service: No Current occupational status: employed Sexual orientation: Straight/Heterosexual Cognitive needs: No Hearing needs: No Vision needs: No Questionnaire PHQ-9 Over the last 2 weeks, how often have you been bothered by any of the following problems? 1. Little interest or pleasure in doing things: not at all 2. Feeling down, depressed, or hopeless: not at all 3. Trouble falling or staying asleep, or sleeping too much: not at all 4. Feeling tired or having little energy: not at all 5. Poor appetite or overeating: not at all 6. Feeling bad about yourself - or that you are a failure or have let yourself or your family down: not at all 7. Trouble concentrating on things, such as reading the newspaper or watching television: not at all 8. Moving or speaking so slowly that other people could have noticed. Or the opposite - being so fidgety or restless that you have been moving around a lot more than usual: not at all 9. Thoughts that you would be better off or of hurting yourself in some way: not at all Total score: 0 Depression Screening Interpretation: Negative Depression Screening Done: Yes Source: Developed by Drs. Raffi Leung, Maria Esther Finney, Fam Camilo and colleagues, with an educational sawyer from [employer]. Thrive Questionnaire Date Thrive assessed: 11/18/23 I am a: Patient What is your living situation today?: I have a steady place to live Within the past 12 months, did the food you bought not last and you didn't have the money to get more?: I choose not to answer this question Within the past 12 months, did you worry whether your food would run out before you got money to buy more?: I choose not to answer this question Do you have trouble paying for medicines?: I choose not to answer this question Do you have trouble getting transportation to medical appointments?: I choose not to answer this question Do you have trouble paying your heating and electricity bill?: I choose not to answer this question Do you have trouble taking care of your child, family member or friend?: I choose not to answer this question Do you have trouble with day-to-day activities such as bathing, preparing meals, shopping, managing finances, etc.?: I choose not to answer this question Are you currently unemployed and looking for a job?: I choose not to answer this question Are you interested in more education?: I choose not to answer this question Please select the resources that you would like help with: None Currently or been in a relationship where the following occur: I choose not to answer THRIVE Score: 0 AUDIT C Alcohol Use Questionnaire (AUDIT-C) 1. How often do you have a drink containing alcohol?: Never Total Score: 0 SIMON-7 AMB Questionnaire SIMON-7 Date SIMON - 7 assessed: 02/20/24 Feeling nervous, anxious, or on edge: 0 = Not at all Not being able to stop or control worryin = Not at all Worrying too much about different things: 0 = Not at all Trouble relaxin = Not at all Being so restless that it is hard to sit still: 0 = Not at all Becoming easily annoyed or irritable: 0 = Not at all Feeling afraid as if something awful might happen: 0 = Not at all Total SIMON-7 score (0-4 normal; 5-9 mild; 10-14 moderate; 15-21 severe): 0 Source: Developed by Drs. Raffi Leung, Maria Esther Finney, Fam Camilo and colleagues, with an educational sawyer from [employer]. Review of Systems Const Denies poor appetite and Denies weakness Eyes Denies no additional complaints ENT Reports Normal hearing present, Denies dizziness, Denies nasal congestion, Denies tinnitus and Denies sore throat Card Denies chest pain, Denies syncope, Denies rapid heart rate and Denies dyspnea Resp Denies cough and Denies dyspnea GI Denies change in stool character, Reports constipation, Denies diarrhea, Denies nausea and Denies vomiting Denies dysuria and Denies urinary frequency Neuro Reports Normal hearing present, Denies confusion, Denies dizziness, Denies syncope and Denies weakness Psych Denies confusion Physical exam (Primary Care) Vital Signs: Last Vital Signs Pulse 81 02/20/24 11:18 BP 148/88 H 02/20/24 11:18 Pulse Ox 98 02/20/24 11:18 Oxygen Delivery Method Room Air 02/20/24 11:18 BMI result Body Mass Index 36.3 Tobacco/Smoking Status: Tobacco use Status Tobacco use date assessed 08/29/23 02/20/24 11:19 Patient Tobacco Use Status Former Tobacco user 02/20/24 11:19 Tobacco use type Cigarette 02/20/24 11:19 e-Cigarette/Vaping Use Never Used 02/20/24 11:19 PHQ-9: PHQ-9 Score PHQ-9: Total score 0 02/20/24 11:19 Depression Screening Interpretation: Negative Thrive Assessment: Date of Thrive Assessment Date Thrive assessed 11/18/23 02/20/24 11:19 Currently or been in a relationship where the following occur: I choose not to answer Const General: No confusion Orientation/consciousness: No confusion HENMT Head: Yes normocephalic Ears: external ears normal and TM's normal bilaterally Face and sinus: Yes normal facial exam Mouth: moist mucous membranes Throat: Yes tonsils normal Eyes Conjunctivae: conjunctivae normal Pupils: Equal, round and reactive pupils present and Pupil accommodation reflex normal Direct Ophthalmoscopy: normal light reflex Neck Neck: No lymphadenopathy Thyroid: Thyroid normal Chest Chest palpation & inspection: normal inspection of the chest Resp Effort & Inspection: normal respiratory effort and no audible wheezes Auscultation: clear to auscultation bilaterally, no crackles, no wheezes and lung sounds not diminished Cardio Rate: regular rate Rhythm: regular rhythm Peripheral pulses: radial pulses present and dorsalis pedis present GI Other: declined rectal Palpation (GI): no masses Auscultation: normal bowel sounds and normoactive bowel sounds Rectal Exam - Male: Yes deferred Other: declined pedal pulse good and pin prick good Skin General skin exam: no rashes or lesions noted Rashes: no rashes Neuro General: No confusion Cranial nerves: Yes Equal, round and reactive pupils present and Yes Normal hearing present Cognition (Neuro): normal cognition Gait exam (Neuro): Normal gait present Motor exam (neuro): 5/5 motor strength present throughout Deep tendon reflexes (DTR's): Right brachioradialis reflex intensity grade: 2+, Left brachioradialis reflex intensity grade: 2+, Right patellar reflex intensity grade: 2+ and Left patellar reflex intensity grade: 2+ Extrem General: No edema Results AMB Hemoglobin A1c AMB Hemoglobin A1c 7.1 % Last Edit by Vicky Reza CMA on 02/20/24 11:48 Coding Level of Care Code Est Pt Prev Care 40-64y(91202) Diagnoses Annual physical exam Z00.00 Type 2 diabetes mellitus with hyperglycemia, without long-term current use of insulin E11.65 Diabetes mellitus intermediate insulin use: without long chain quiller tender use Tobacco abuse Z72.0 Hypercholesterolemia E78.00 Mild intermittent asthma without complication J45.20 Asthma complication type: uncomplicated Asthma persistence: intermittent Asthma severity: mild Obesity (BMI 30-39.9) E66.9 Gastroesophageal reflux disease without esophagitis K21.9 Esophagitis presence: without esophagitis Obstructive sleep apnea G47.33 Primary hypertension I10 Hypertension type: primary hypertension Colon cancer screening Z12.11 Alcohol abuse F10.10 Seasonal allergic rhinitis due to other allergic trigger J30.89 Allergic rhinitis trigger: other Allergic rhinitis seasonality: seasonal Assessment & Plan Assessment & Plan (1) Annual physical exam: Code(s): Z00.00 - Encounter for general adult medical examination without abnormal findings Category: Medical Plan: Patient is advised to eat healthy, keep well hydrated, keep active and have adequate sleep. Had a long discussion with the patient on the need to get things under control with this health. Patient was advised to stop smoking, stop alcohol, eat healthy keep active lose the weight. (2) Type 2 diabetes mellitus with hyperglycemia: Comment: Eye and lasik Code(s): E11.65 - Type 2 diabetes mellitus with hyperglycemia Category: Medical Qualifiers: Diabetes mellitus long chain quiller tender insulin use: without long chain quiller tender use Qualified Code(s): E11.65 - Type 2 diabetes mellitus with hyperglycemia Plan: Decrease the amount of carbohydrate intake, pasta, bread, rice and potatoes are all sugar and that is aside from all the sweet stuff, remember that fruits are good but they are Sweet also. Presently on Trulicity 1.5 mg once a week metformin a 1000 mg twice a day (3) Tobacco abuse: Code(s): Z72.0 - Tobacco use Category: Medical Plan: Patient is strongly advised to stop smoking! (4) Hypercholesterolemia: Code(s): E78.00 - Pure hypercholesterolemia, unspecified Category: Medical Plan: Avoid fried foods, chicken skin, eggs, butter margarine, pastries and meat. Be it pork or beef they have a lot of cholesterol on atorvastatin 10 mg once a day LDL goal of less than 100. (5) Asthma: Comment: PFT June 2018 Code(s): J45.909 - Unspecified asthma, uncomplicated Category: Medical Qualifiers: Asthma complication type: uncomplicated Asthma persistence: intermittent Asthma severity: mild Qualified Code(s): J45.20 - Mild intermittent asthma, uncomplicated Plan: Patient is advised to stop smoking summation continue with the Advair and rinse mouth after using (6) Obesity (BMI 30-39.9): Code(s): E66.9 - Obesity, unspecified Category: Medical Plan: Diet and exercise (7) GERD (gastroesophageal reflux disease): Code(s): K21.9 - Gastro-esophageal reflux disease without esophagitis Category: Medical Qualifiers: Esophagitis presence: without esophagitis Qualified Code(s): K21.9 - Gastro-esophageal reflux disease without esophagitis Plan: Avoid the foods that causes that usually spicy foods, tomato products, juices, coffee, soda and foods that your sensitive to. After eating do not lie down, allow 3-4 hours before in lie down. And keep the head of bed above 30 degrees to avoid the acid from going up. (8) Obstructive sleep apnea: Comment: Cannot tolerate CPAP Code(s): G47.33 - Obstructive sleep apnea (adult) (pediatric) Category: Medical Plan: Discussed about the importance of treating sleep apnea. cannot tolerate CPAP (9) Hypertension: Code(s): I10 - Essential (primary) hypertension Category: Medical Qualifiers: Hypertension type: primary hypertension Qualified Code(s): I10 - Essential (primary) hypertension Plan: Continue with blood pressure medication. Decrease salt intake and exercise on lisinopril 10 mg once a day- will increase dose (10) Colon cancer screening: Code(s): Z12.11 - Encounter for screening for malignant neoplasm of colon Category: Medical Plan: referral done (11) Alcohol abuse: Code(s): F10.10 - Alcohol abuse, uncomplicated Category: Social Hx Plan: declined couselling (12) Allergic rhinitis: Code(s): J30.9 - Allergic rhinitis, unspecified Category: Medical Qualifiers: Allergic rhinitis trigger: other Allergic rhinitis seasonality: seasonal Qualified Code(s): J30.89 - Other allergic rhinitis Plan: Allergy medication prescribed Orders: Orders AMB Hemoglobin A1c Today Z13.9 - Encounter for screening, unspecified Referrals Gastroenterology Referral Z12.11 - Encounter for screening for malignant neoplasm of colon Medications: New fexofenadine (Deedee Allergy) 180 mg PO DAILY 30 tabs 4RF J30.9 - Allergic rhinitis, unspecified Changed From dulaglutide (Trulicity) 1.5 mg (0.5 mL) subcut SA 2 mL 3RF E11.65 - Type 2 diabetes mellitus with hyperglycemia To dulaglutide 3 mg (0.5 mL) subcut SA 30 days 2.5 mL 3RF E11.65 - Type 2 diabetes mellitus with hyperglycemia From lisinopril 10 mg PO DAILY 30 tabs 5RF I10 - Essential (primary) hypertension To lisinopril 20 mg PO DAILY 30 tabs 5RF I10 - Essential (primary) hypertension
[2024-02-20 11:50] VITALS: BP 142/84
== END ==
PROVIDERS: PCP Internal Medicine; Visit Provider Internal Medicine
DX: Z00.00 Encounter for general adult medical examination without abnormal findings (principal); E11.65 Type 2 diabetes mellitus with hyperglycemia; E66.9 Obesity, unspecified; Z68.36 Body mass index [BMI] 36.0-36.9, adult; Z72.0 Tobacco use; E78.00 Pure hypercholesterolemia, unspecified; J45.20 Mild intermittent asthma, uncomplicated; K21.9 Gastro-esophageal reflux disease without esophagitis; G47.33 Obstructive sleep apnea (adult) (pediatric); I10 Essential (primary) hypertension; F10.10 Alcohol abuse, uncomplicated; J30.89 Other allergic rhinitis

== ENCOUNTER 2024-03-28 20:43 | Emergency (ER) | payer OTHER, SELFPAY ==
--- NOTE | ~2024-03-28 | XR_ITS ---
CLINICAL HISTORY: sob 1 view chest x-ray Comparison: Chest x-ray from 04/06/2019 Findings: No consolidation or effusion. Mild emphysematous changes. No pneumothorax. Imaged mediastinum is unchanged. Degenerative changes include imaged shoulders and imaged AC joints. IMPRESSION: No consolidation. This document has been electronically signed by: Marin Edwards MD on 03/28/2024 22:05:19
--- NOTE | ~2024-03-28 | CT_ITS ---
CLINICAL HISTORY: Left Lower rib pain?? Fracture CT chest without contrast Comparison: None Findings: The heart is normal size. The visualized thyroid and mediastinum are unremarkable. No consolidation or effusion. The upper abdomen demonstrates hepatic steatosis No acute fractures. IMPRESSION: 1. Unremarkable chest CT. 2. Hepatic steatosis. This document has been electronically signed by: Kimo Weeks MD, PHD on 03/29/2024 05:13:19
[2024-03-28 20:52] VITALS: BP 133/88; BP 180/92; PULSE 92; PULSE 94; RESP 18; TEMP 36.8; O2SAT 94; O2SAT 96; BMI 36.1
--- OUTSIDE RECORDS SUMMARY | 2024-03-28 21:40 | XMS_ITS ---
Author Name [facility] Organization Unknown History of Medication Use Medication Directions Dispensed Refills Start Date End Date Stat us amoxicillin-clavula anaid (AUGMENTIN) 875-125 MG per tablet Take 1 tablet by mouth 2 (two) times a day. Take as directed or until you run out 02/05/2024 03/30/9999 active ibuprofen (MOTRIN) 600 MG tablet Take 1 tablet (600 mg total) by mouth 3 (three) times a day as needed for mild pain (pain). 02/05/2024 03/30/9999 active Problems Problem Status Onset Date Problem Type Date of Resoluti on Source Peritonsillar abscess active 2022-09-28 [facility]
[2024-03-28 23:22] VITALS: BP 140/88; PULSE 75; RESP 20; TEMP 36.4; O2SAT 95
--- NOTE | 2024-03-28 23:42 | ED.ABDPAIN ---
HPI - Abdominal Pain General Chief Complaint: Abdominal Pain Stated Complaint: abd pain, felt pop in luq Time Seen by Provider: 03/28/24 22:39 Source: patient Mode of arrival: ambulatory Limitations: no limitations History of Present Illness ED Provider: HPI narrative: Patient apparently coughed twice and felt a pop just prior to arrival since then having pain in the left lower ribs lower rib no nausea no vomiting no significant shortness of breath has normal bowel movements pain is localized in midclavicular line in lower rib x-ray was done which was negative for acute Related Data Previous Rx's ?Medication ?Instructions ?Recorded metformin 500 mg tablet 1,000 mg (2 x 500 mg) PO BID 90 08/29/23 days #360 tabs atorvastatin 10 mg tablet 10 mg PO DAILY #30 tabs 09/19/23 fluticasone 250 mcg-salmeterol 50 1 ea inhalation BID #60 ea 10/10/23 mcg/dose blistr powdr for inhalation (Advair Diskus) albuterol sulfate 90 mcg/actuation 2 inh inhalation Q4-6H PRN 10/21/23 breath activated powder shortness of breath or wheezing #1 inhaler,sensor (Proair Digihaler) ea dulaglutide 3 mg/0.5 mL 3 mg (0.5 mL) subcut SA 30 days 02/20/24 subcutaneous pen injector #2.5 mL fexofenadine 180 mg tablet 180 mg PO DAILY #30 tabs 02/20/24 (Deedee Allergy) lisinopril 20 mg tablet 20 mg PO DAILY #30 tabs 02/20/24 oxycodone 5 mg tablet 5 mg PO Q6H PRN pain #20 tabs 03/29/24 Allergies Allergy/AdvReac Type Severity Reaction Status Date / Time seafood Allergy Severe Hives Verified 03/28/24 20:53 pollen extracts [POLLEN] Allergy Unknown UNKNOWN Verified 03/28/24 20:53 seasonal allergies Allergy Unknown Unknown Uncoded 03/28/24 20:53 Review of Systems Review of Systems Yes all other systems are reviewed and are negative PMFSH Past Medical History Medical History DMII (diabetes mellitus, type 2) History of renal calculi Obstructive sleep apnea Fatty liver Vitamin D deficiency Obesity (BMI 30-39.9) Mood disorder Asthma Hypercholesterolemia Alcohol abuse Tobacco abuse Surgical History History of removal of cyst History of tonsillectomy Family History Family History Father CAD (coronary artery disease) CVD (cardiovascular disease) Hypertension Mother Hypertension Maternal Grandfather Colon cancer Maternal Uncle Myocardial infarction Social History Social History Household Members: Spouse and Children Housing: House Do you presently have visiting nurse or other home services: No Alcohol intake: current Alcohol intake frequency: a few times a month Alcohol type: beer and hard liquor Comment: once a week 7-8 beers - discussed about stopping Patient Tobacco Use Status: Current everyday Tobacco user Tobacco use type: Cigarette Cigarette Packs Per Day: 0.25 Cigarettes Per Day: 6 Years Smoked: 30 e-Cigarette/Vaping Use: Never Used Second Hand Smoke Exposure: No Substance Use Type: Marijuana Advance Directives: No Advance Directives Information Provided: No Do you have a plan to hurt others: No Plan service: No Current occupational status: employed Sexual orientation: Straight/Heterosexual Cognitive needs: No Hearing needs: No Vision needs: No Physical Exam ED Vital Signs: Vital Signs - 24 hr 03/28/24 20:52 03/28/24 23:22 Temperature 98.3 F 97.6 F Pulse Rate 92 75 Respiratory Rate 18 20 Blood Pressure 133/88 140/88 H Pulse Oximetry 94 95 Oxygen Delivery Method Room Air Room Air BMI result Body Mass Index 36.1 Appearance: Alert. Oriented X3. No acute distress. Eyes: PERRLA, No Nystagmus ENT: Pharynx normal. Oral Mucosa moist Neck: Normal inspection. Neck supple. CVS: Normal heart rate and rhythm. Pulses normal. Respiratory: No respiratory distress. Equal air entry bilateral, no wheezing/rales/rhonchi tenderness left midclavicular at 8- 9 rib no crepitation Abdomen: Soft and nontender. Bowel sounds are present, no mass palpable, no CVA tenderness Skin: Skin warm and dry. Normal skin color. Normal skin turgor. Extremities: No lower extremity edema. No calf tenderness Neuro: Oriented X 3. No motor deficit. Medical Decision Making Medical Decision Making MDM Narrative: Patient likely with rib contusion/fracture x-ray negative patient is obese will do CT scan of the chest as patient is still continued to have pain after 15 mg of morphine Patient is signed out Dr. Shah pending CT scan Differential Diagnosis Differential Diagnoses: The differential diagnosis associated with the presentation includes Rib fracture/rib contusion/pneumothorax Independent Interpretation I performed an independent interpretation of an: Plain X-Ray Interpretation: NAD Medications Administered Discontinued Medications Generic Name Dose Route Start Last Admin Trade Name Freq PRN Reason Stop Dose Admin Morphine Sulfate 15 mg 03/28/24 23:50 03/29/24 00:44 Morphine Sulfate Immed Release 15 Mg Tablet PO 03/28/24 23:51 15 mg ONCE ONE Administration Discharge Plan Discharge Clinical Impression: Contusion of rib on left side Patient Disposition: Still a Patient Instructions: Rib Contusion (ED) Additional Instructions: Take pain medication as prescribed Follow with your PCP if any concerns Prescriptions: New oxycodone 5 mg tablet 5 mg PO Q6H PRN (Reason: pain) Qty: 20 0RF Rx Instructions: Partial Fill upon patient request. No Action atorvastatin 10 mg tablet 10 mg PO DAILY Qty: 30 1RF Proair Digihaler 90 mcg/actuation aero powdr breath act w/sensor 2 inh inhalation Q4-6H PRN (Reason: shortness of breath or wheezing) Qty: 1 0RF metformin 500 mg tablet 1,000 mg PO BID 90 Days Qty: 360 2RF fluticasone propion-salmeterol [Advair Diskus] 250-50 mcg/dose blister with device 1 ea INHALATION BID Qty: 60 11RF dulaglutide 3 mg/0.5 mL pen injector 3 mg subcut SA 30 Days Qty: 2.5 3RF lisinopril 20 mg tablet 20 mg PO DAILY Qty: 30 5RF fexofenadine [Deedee Allergy] 180 mg tablet 180 mg PO DAILY Qty: 30 4RF Print Language: Ethiopian
[2024-03-29] MEDS: Morphine Sulfate Immed Release 15 MG TABLET PO (00:44)
[2024-03-29] MEDS: Ketorolac Tromethamine 60 MG/2 ML VIAL IM (03:14)
[2024-03-29 06:46] VITALS: BP 141/95; PULSE 80; RESP 12; TEMP 36.7; O2SAT 96
[2024-03-29 07:20] VITALS: BP 151/84; PULSE 60; RESP 14; TEMP 36.7; O2SAT 97
== END 2024-03-29 07:51 | disposition home or self-care (01) ==
PROVIDERS: Emergency Provider Internal Medicine; PCP Internal Medicine
DX: S20.212A Contusion of left front wall of thorax, initial encounter (principal); R10.2 Pelvic and perineal pain; R07.81 Pleurodynia; R05.9 Cough, unspecified; X58.XXXA Exposure to other specified factors, initial encounter; Y93.29 Activity, other involving ice and snow; Y92.9 Unspecified place or not applicable; Y99.8 Other external cause status
CPT/HCPCS: 71045; 71250; 96372; 99283; 99284; J1885

== ENCOUNTER → 2024-03-28 21:33 | Outpatient (BNV) | payer OTHER, SELFPAY | PROVIDERS: Emergency Provider Internal Medicine; PCP Internal Medicine; Visit Provider Radiology Neuroradiology | DX: R06.02 Shortness of breath (principal) | CPT/HCPCS: 71045 ==

== ENCOUNTER → 2024-03-29 01:57 | Outpatient (BNV) | payer OTHER, SELFPAY | PROVIDERS: Emergency Provider Internal Medicine; PCP Internal Medicine; Visit Provider General Practice | DX: K76.0 Fatty (change of) liver, not elsewhere classified (principal); R07.82 Intercostal pain | CPT/HCPCS: 71250 ==

== ENCOUNTER 2024-04-05 13:26 | Outpatient (AMB) | payer OTHER, SELFPAY ==
--- NOTE | 2024-04-05 13:30 | A.OFFPC_ITS ---
Vital Signs 04/05/24 13:32 Height 5 ft 8 in Weight 226 lb BMI 34.4 BP 130/78 Blood Pressure Location Lt brachial Position Sitting Pulse 80 Pulse Source Pulse Oximeter Pulse Oximetry (%) 94 Oxygen Delivery Method Room Air Intake Visit Reasons: [facility] [place] ab[place] pain, felt pop in luq Intake Note: Patient is here to follow-up after a visit the emergency department at [facility] [place] 03/29/24 Bill Board Poster Required: No Alemite Operator: Not Required per policy Accompanied by: Self / Same As Patient Allergies seafood Allergy (Severe, Verified 04/05/24 13:31) Hives pollen extracts [POLLEN] Allergy (Unknown, Verified 04/05/24 13:31) UNKNOWN seasonal allergies Allergy (Unknown, Uncoded 04/05/24 13:31) Unknown Medication List - Last Reconciled 04/05/24 by Winter Ying PA-C albuterol sulfate 90 mcg/actuation (Proair Digihaler) 2 inhalations inhalation Q4-6H PRN atorvastatin 10 mg PO DAILY dulaglutide 3 mg (0.5 mL) subcut SA 30 days fexofenadine (Deedee Allergy) 180 mg PO DAILY fluticasone propion-salmeterol 250-50 mcg/dose (Advair Diskus) 1 ea inhalation BID lisinopril 20 mg PO DAILY metformin 1,000 mg (2 x 500 mg) PO BID 90 days oxycodone 5 mg PO Q6H PRN Tobacco use date assessed: 04/05/24 Dental Screening Dental Screen Date: 04/05/24 Did you have a dental visit in the last 12 months?: No Did you have a dental problem in the last 6 months where you did not have access to dental care?: No Was dental information given to patient?: No HPI [facility] [place] abd pain, felt pop in luq HPI Details 54-year-old male with past medical histo ry of asthma, h ypercholesterolemia, obstructive sleep apnea, diabetes mellitus, GERD, hypertension last seen by Dr. Agarwal January 2024 coming in for hospital discharge follow up.? In review of the notes, patient was seen in [facility] ED 03/28/2024 after a fall x-ray and CT was negative discharged home with oxycodone. Patient tells us today he was smoking marijuana and began to cough when he felt a popping sensation in the left upper quadrant followed by pain and shortness of breath. He has been using ibuprofen for the pain and oxycodone for breakthrough pain only. He states his pain has been affecting his job so he took the week off last week and does still continue to have pain with heavy lifting. The pain is often positional and worse with coughing but has been improving. [facility] Medical History DMII (diabetes mellitus, type 2) History of renal calculi Obstructive sleep apnea Fatty liver Vitamin D deficiency Obesity (BMI 30-39.9) Mood disorder Asthma Hypercholesterolemia Alcohol abuse Tobacco abuse Surgical History History of removal of cyst History of tonsillectomy Family History Father CAD (coronary artery disease) CVD (cardiovascular disease) Hypertension Mother Hypertension Maternal Grandfather Colon cancer Maternal Uncle Myocardial infarction Social History Household Members: Spouse and Children Housing: House Do you presently have visiting nurse or other home services: No Alcohol intake: current Alcohol intake frequency: a few times a month Alcohol type: beer and hard liquor Comment: once a week 7-8 beers - discussed about stopping Patient Tobacco Use Status: Current everyday Tobacco user Tobacco use type: Cigarette Cigarette Packs Per Day: 0.25 Cigarettes Per Day: 6 Years Smoked: 30 e-Cigarette/Vaping Use: Never Used Second Hand Smoke Exposure: Yes Substance Use Type: Marijuana service: No Current occupational status: employed Sexual orientation: Straight/Heterosexual Cognitive needs: No Hearing needs: No Vision needs: No Questionnaire PHQ-9 Over the last 2 weeks, how often have you been bothered by any of the following problems? 1. Little interest or pleasure in doing things: not at all 2. Feeling down, depressed, or hopeless: not at all 3. Trouble falling or staying asleep, or sleeping too much: not at all 4. Feeling tired or having little energy: not at all 5. Poor appetite or overeating: not at all 6. Feeling bad about yourself - or that you are a failure or have let yourself or your family down: not at all 7. Trouble concentrating on things, such as reading the newspaper or watching television: not at all 8. Moving or speaking so slowly that other people could have noticed. Or the opposite - being so fidgety or restless that you have been moving around a lot more than usual: not at all 9. Thoughts that you would be better off or of hurting yourself in some way: not at all Total score: 0 Depression Screening Interpretation: Negative Depression Screening Done: Yes Source: Developed by Drs. Raffi Leung, Maria Esther Finney, Fam Camilo and colleagues, with an educational sawyer from [employer]. Thrive Questionnaire Date Thrive assessed: 04/05/24 AUDIT C Alcohol Use Questionnaire (AUDIT-C) 1. How often do you have a drink containing alcohol?: Never Total Score: 0 SIMON-7 AMB Questionnaire SIMON-7 Date SIMON - 7 assessed: 04/05/24 Feeling nervous, anxious, or on edge: 0 = Not at all Not being able to stop or control worryin = Not at all Worrying too much about different things: 0 = Not at all Trouble relaxin = Not at all Being so restless that it is hard to sit still: 0 = Not at all Becoming easily annoyed or irritable: 0 = Not at all Feeling afraid as if something awful might happen: 0 = Not at all Total SIMON-7 score (0-4 normal; 5-9 mild; 10-14 moderate; 15-21 severe): 0 Source: Developed by Drs. Raffi Leung, Maria Esther Finney, Fam Camilo and colleagues, with an educational sawyer from [employer]. Review of Systems Const Denies body aches, Denies chills, Denies fever(s), Denies headache(s) and Denies poor appetite Eyes Reports no additional complaints ENT Denies dizziness and Denies headache(s) Card Denies chest pain, Denies lightheadedness and Denies dyspnea Resp Reports cough (Occasional), Reports pain with cough and Denies dyspnea GI Denies abdominal pain, Denies constipation, Denies diarrhea, Denies nausea and Denies vomiting Reports no additional complaints Musc Details: Left rib pain Reports no additional complaints and Denies abnormal gait Skin/Breast Reports system reviewed and no additional complaints, except as documented Neuro Denies abnormal gait, Denies dizziness and Denies headache(s) Psych Reports no additional complaints Physical exam (Primary Care) Vital Signs: Last Vital Signs Pulse 80 04/05/24 13:32 BP 130/78 04/05/24 13:32 Pulse Ox 94 04/05/24 13:32 Oxygen Delivery Method Room Air 04/05/24 13:32 BMI result Body Mass Index 34.4 Tobacco/Smoking Status: Tobacco use Status Tobacco use date assessed 04/05/24 04/05/24 13:32 Patient Tobacco Use Status Current everyday Tobacco 04/05/24 13:32 Tobacco use type Cigarette 04/05/24 13:32 e-Cigarette/Vaping Use Never Used 04/05/24 13:32 PHQ-9: PHQ-9 Score PHQ-9: Total score 0 04/05/24 13:33 Depression Screening Interpretation: Negative Thrive Assessment: Date of Thrive Assessment Date Thrive assessed 04/05/24 04/05/24 13:32 Const General: cooperative, healthy appearing, comfortable and no acute distress Orientation/consciousness: patient oriented x3 HENMT Head: Yes normocephalic Ears: hearing grossly normal bilaterally General nose exam: Normal external nose present Eyes General: appearance normal, both eyes and all related structures Conjunctivae: conjunctivae normal Neck Neck: Yes full ROM and Yes no lymphadenopathy Chest Other: Pain to palpation over left ribs no visible rash Resp Effort & Inspection: normal respiratory effort Auscultation: clear to auscultation bilaterally, no crackles, no rales, no rhonchi and no wheezes Cardio Rate: regular rate Rhythm: regular rhythm Skin General skin exam: no rashes or lesions noted Neuro General: patient oriented x3 Gait exam (Neuro): Normal gait present Extrem General: Yes normal to inspection, Yes full ROM and No edema Psych Affect: normal affect Attitude: cooperative Insight: Good insight present (Psych) Judgement: Good judgement present (Psych) Coding Level of Care Code Est Pt Level 3 (05099) Diagnoses Rib contusion S20.219A Mild intermittent asthma without complication J45.20 Asthma severity: mild Asthma persistence: intermittent Asthma complication type: uncomplicated Assessment & Plan Assessment & Plan (1) Rib contusion: Code(s): S20.219A - Contusion of unspecified front wall of thorax, initial encounter Category: Medical Plan: Patient was diagnosed with contusion of left rib while in the ED. chest x-ray and chest CT negative for any acute problem. Advised patient to continue to use ibuprofen and lidocaine patch as needed for pain. We will give muscle relaxer as needed for pain at night and use oxycodone only as needed and sparingly. I did inform patient that the oxycodone would not be refilled. Continue to monitor symptoms and if symptoms worsen or do not improve to reach out to the office. Encouraged patient to continue taking deep breaths to prevent pneumonia. (2) Asthma: Comment: PFT June 2018 Code(s): J45.909 - Unspecified asthma, uncomplicated Category: Medical Qualifiers: Asthma severity: mild Asthma persistence: intermittent Asthma complication type: uncomplicated Qualified Code(s): J45.20 - Mild intermittent asthma, uncomplicated Plan: Asthma currently controlled on present medications. Continue on Advair and albuterol as needed. Avoid triggers such as allergies. Strongly advised to stop smoking Plan This note was constructed using voice recognition software. While every effort has been made to ensure accuracy and telecommunications officer, still areas may have been included sometimes these areas may affect the content or meeting of the given symptoms. Total time spent caring for the patient today was 20 minutes. This includes time spent before the visit reviewing the chart, time spent during the visit, and time spent after the visit and documentation. Medications: New lidocaine 5% leave on most painful area for up to 12 hrs 1 patch topical DAILY 30 ea 0RF cyclobenzaprine 5 mg PO BEDTIME 10 tabs 0RF
[2024-04-05 13:32] VITALS: BP 130/78; PULSE 80; O2SAT 94; BMI 34.4
--- OUTSIDE RECORDS SUMMARY | 2024-04-05 15:47 | XMS_ITS | Patient Health Record ---
Author Organization [facility] Address [address], [place] [id number] Support Name Relationship Address Phone Hollis Srivastava Guarantor Unknown [phone] Reason For Referral No Information Plan Of Treatment No Information Insurance Providers Payer Name Payer Address Payer Phone Subscriber Number Group Number Insured Name Patient Relationship to Insured Coverage Start Date Coverage End Date [place] Medicaid Standard [address] [place] [address] [id number] Hollis Srivastava Self - patient is the insured
== END 2024-04-05 14:00 | disposition home or self-care (01) ==
PROVIDERS: PCP Internal Medicine
DX: S20.219A Contusion of unspecified front wall of thorax, initial encounter (principal); J45.20 Mild intermittent asthma, uncomplicated

== ENCOUNTER → 2024-04-05 13:26 | Outpatient (BNVA) | payer OTHER, SELFPAY | PROVIDERS: PCP Internal Medicine | DX: R10.9 Unspecified abdominal pain (principal); S20.219A Contusion of unspecified front wall of thorax, initial encounter; J45.20 Mild intermittent asthma, uncomplicated; E78.00 Pure hypercholesterolemia, unspecified; G47.33 Obstructive sleep apnea (adult) (pediatric); E11.9 Type 2 diabetes mellitus without complications; K21.9 Gastro-esophageal reflux disease without esophagitis; I10 Essential (primary) hypertension; X58.XXXA Exposure to other specified factors, initial encounter; Y93.9 Activity, unspecified; Y92.9 Unspecified place or not applicable; Y99.9 Unspecified external cause status; Z79.891 Long term (current) use of opiate analgesic; Z79.899 Other long term (current) drug therapy | CPT/HCPCS: 99212 ==

== ENCOUNTER 2024-06-01 14:25 | Outpatient (AMB) | payer OTHER, SELFPAY ==
[2024-06-01 14:43] VITALS: BMI 33.9
--- NOTE | 2024-06-01 14:43 | A.OFFVIS_ITS ---
VS Expanded 06/01/24 14:43 06/01/24 15:17 Height 5 ft 8 in 5 ft 8 in Weight 222 lb 14.197 oz 223 lb BMI 33.9 33.9 Intake Visit Reasons: Type 2 diabetes mellitus with hyperglycemia Allergies seafood Allergy (Severe, Verified 04/05/24 13:31) Hives pollen extracts [POLLEN] Allergy (Unknown, Verified 04/05/24 13:31) UNKNOWN seasonal allergies Allergy (Unknown, Uncoded 04/05/24 13:31) Unknown Nutrition Presentation Details: Pt presents for MNT for T2DM with hyperglycemia food frequency fruits: 0-1/d ve-1/d starches >25/d dairy> 3/d fish 0-1/wk beverages: water, soda/juices/milk eoth/smoking---- physical activity ADL BS Monitoring Most Recent Diabetes Results: No Data to Display SBN-[id number]-Pv.Jeor Equation Height: 5 ft 8 in Weight: 223 lb Resting Metabolic Rate: 1829.32 Calculated Activity Level: Mild Activity Calories Needed to Maintain Weight: 2515.32 Diagnosis Nutrition problem #1: excessive energy intake As related to (etiology) #1: diagnosis As evidenced by (sign/symptom) #1: abnormal lab values [facility] Medical History DMII (diabetes mellitus, type 2) History of renal calculi Obstructive sleep apnea Fatty liver Vitamin D deficiency Obesity (BMI 30-39.9) Mood disorder Asthma Hypercholesterolemia Alcohol abuse Tobacco abuse Surgical History History of removal of cyst History of tonsillectomy Family History Father CAD (coronary artery disease) CVD (cardiovascular disease) Hypertension Mother Hypertension Maternal Grandfather Colon cancer Maternal Uncle Myocardial infarction Social History Household Members: Spouse and Children Housing: House Do you presently have visiting nurse or other home services: No Alcohol intake: current Alcohol intake frequency: a few times a month Alcohol type: beer and hard liquor Comment: once a week 7-8 beers - discussed about stopping Patient Tobacco Use Status: Current everyday Tobacco user Tobacco use type: Cigarette Cigarette Packs Per Day: 0.25 Cigarettes Per Day: 6 Years Smoked: 30 e-Cigarette/Vaping Use: Never Used Second Hand Smoke Exposure: Yes Substance Use Type: Marijuana service: No Current occupational status: employed Sexual orientation: Straight/Heterosexual Cognitive needs: No Hearing needs: No Vision needs: No Assessment & Plan Assessment & Plan (1) Type 2 diabetes mellitus with hyperglycemia: Comment: Eye and lasik Code(s): E11.65 - Type 2 diabetes mellitus with hyperglycemia Category: Medical Qualifiers: Diabetes mellitus snf insulin use: without terminal superintendent use Qualified Code(s): E11.65 - Type 2 diabetes mellitus with hyperglycemia Plan: Wt: 101 Kg ( 06/22 ) Est kcal needs as per MSJ: 2500 (40% carb, 30% protein/fat) Est fluid needs as per 25-30 ml/d: 3000 Est prot per day as per 1 g/kg bw: 101 Recommend fiber intake : 8-10 g per day and gradually increase to 25-28 g per day for women and 35-38 g for men or as tolerated Recommend sodium intake per day : less than 2300 mg Educated patient on: ( R = reviewed V = verbalizes understanding N/R = needs review N/A = not applicable * Food sources of carbohydrate, adequate serving sizes and its role in various health conditions: R V N/R * Differences between complex carbohydrates a simple carbohydrates, role of fiber in diet: R * Lean protein sources of foods: R * Differences between types of fats and role in diet (mono on saturated fat fatty acids, saturated fatty acids, trans fats): R V N/R * Food sources of sodium in salt and healthy modifications for heart health in kidney health: R V R/V * Vitamins and minerals: R V N/R * Healthy plate method concept: R * Physical activity: Benefits a precaution: R V N/R * Hypoglycemia protocol (rule of 15): R V N/R * Dietary prevention of Hyperglycemia: R Patient Instructions: Have 3 meals per day and distribute total carb to less than 80 g per meal following healthy plate method and <20 g as snack if needed see meal ideas a sreference HAve no sugar added beverages (water, fruit/herb infused flavors as example Coding Level of Care Code Nutr Indiv Intake (24475) Diagnoses Type 2 diabetes mellitus with hyperglycemia, without long-term current use of insulin E11.65 Diabetes mellitus terminal superintendent insulin use: without terminal superintendent use Time Spent (min) 30
--- OUTSIDE RECORDS SUMMARY | 2024-06-01 18:14 | XMS_ITS | Clinical Summary ---
Author Organization [facility] Address [address] [place] [address] Care Team Providers Care Dental Appliance Fixer Name Role Phone Ed Agarwal MD Primary Care Provider [phone] Allergies Active Allergy Reactions Criticality Noted Date Comments Shellfish-Derived Products Hives Medium Medications Medication Sig Dispensed Refills Start Date End Date Status amoxicillin-clavulan ate (AUGMENTIN) 875-125 MG per tablet Take 1 tablet by mouth 2 (two) times a day. Take as directed or until you run out 20 tablet 09/29/2022 Active ibuprofen (MOTRIN) 600 MG tablet Take 1 tablet (600 mg total) by mouth 3 (three) times a day as needed for mild pain (pain). 20 tablet 09/29/2022 Active Active Problems Problem Noted Date Diagnosed Date Peritonsillar abscess 09/28/2022 Social History Tobacco Use Types Packs/Day Years Used Date Smoking Tobacco: Never Assessed AUDIT-C Answer Date Recorded Q1: How often do you have a drink containing alc ohol? 2-4 times a month 09/29/2022 Q2: How many drinks containi ng alcohol do you have on a typical day when you are drinking? 1 or 2 09/29/2022 Q3: How often do you have si x or more drinks on one occasion? Never 09/29/2022 Sex and Gender Information Value Date Recorded Sex Assigned at Male 09/28/2022 7:24 PM EDT Gender Identity Male 09/28/2022 7:24 PM EDT Sexual Orientation Choose not to disclose 2022 7:24 PM EDT Last Filed Vital Signs Vital Sign Reading Time Taken Comments Blood Pressure 118/90 09/29/2022 7:58 AM EDT Pulse 66 09/29/2022 7:58 AM EDT Temperature 35.9 ??C (96.7 ??F) 09/29/2022 7:58 AM ED T Respiratory Rate 18 09/29/2022 7:58 AM EDT Oxygen Saturation 93% 09/29/2022 7:58 AM EDT Inhaled Oxygen Concentration - - Weight 92.9 kg (204 lb 11.2 oz) 09/29/2022 1:37 AM EDT Height 172.7 cm (5' 8 ) 09/29/2022 1:37 AM EDT Body Mass Index 31.12 09/29/2022 1:37 AM EDT Plan of Treatment Health Maintenance Due Date Last Done Comments Hepatitis C Virus Screening 1970 HIV Screening 1983 Microalbumin/Creatinine Rati o Urine 1988 DTaP/Tdap/Td Vaccines (1 - Tdap) 1989 Hepatitis B Vaccines (1 of 3 - 19+ 3-dose series) 1989 Colonoscopy 2015 Pneumococcal Vaccines 50+ (1 of 1 - PCV) 2020 Zoster (Shingles) Vaccine (1 of 2) 2020 Influenza Vaccine 10/30/2023 COVID-19 Vaccine (1 - 2023-2 5 season) 2023 Pneumococcal Vaccine: Pediat sathish (0-5 Years) and At-Risk Patients (6 to 49 Years) Aged Out No longer eligible b ased on patient's age to complete this topic Advance Directives * Full Code (Latest Code Status on File) Date Activated Date Inactivated Comments 09/28/2022 10:31 PM Care Teams Dental Appliance Fixer Relationship Specialty Start Date End Date Ed Agarwal MD [address] [place] [address] [place] [id number] PCP - General Internal Medicine 09/28/22
[2024-06-08 14:19] VITALS: BMI 33.9
== END 2024-06-01 15:27 | disposition home or self-care (01) ==
PROVIDERS: PCP Internal Medicine; Visit Provider Dietitian, Registered
DX: E11.65 Type 2 diabetes mellitus with hyperglycemia (principal)

== ENCOUNTER → 2024-06-01 14:25 | Outpatient (BNVA) | payer OTHER, SELFPAY | PROVIDERS: PCP Internal Medicine; Visit Provider Dietitian, Registered | DX: E11.65 Type 2 diabetes mellitus with hyperglycemia (principal) | CPT/HCPCS: 97802 ==

== ENCOUNTER 2024-08-10 17:13 | Emergency (ER) | payer OTHER, SELFPAY ==
--- NOTE | ~2024-08-10 | CT_ITS ---
CLINICAL HISTORY: flank pain, renal colic? CT abdomen and pelvis without contrast Comparison: CT/REG/[place] - CT ABDOMEN PELVIS W CON - 04/28/20 05:29 EST Findings: No consolidation or effusion. 5 mm obstructing left distal ureteral stone approximately 6 cm above the ureterovesicular junction. Moderate hydronephrosis. Mild hydroureter. Mild left perinephric fat stranding. Gallbladder and solid organs otherwise unremarkable. No bowel obstruction, pneumoperitoneum, or pneumatosis. Moderate stool. Normal appendix. Prostatomegaly. Urinary bladder partially decompressed. The bones are intact. IMPRESSION: 5 mm obstructing left distal ureteral stone. This document has been electronically signed by: Yuri Dong MD on 08/10/2024 21:39:10
[2024-08-10 17:54] VITALS: BP 149/88; PULSE 76; RESP 18; TEMP 36.8; O2SAT 98; BMI 28.7
--- NOTE | 2024-08-10 17:56 | ED.GENADULT ---
HPI - General Adult General Chief complaint: Abdominal Pain Stated complaint: pain on left side of back Time Seen by Provider: 08/10/24 19:00 Source: patient Limitations: no limitations History of Present Illness ED Provider: Bethany Catalan PA-C HPI narrative: 54-year-old male with a history of kidney stones, hyperlipidemia, diabetes, hypertension, asthma, morbid obesity, alcohol use disorder, tobacco abuse presents with right flank pain since earlier today. Patient states he developed right mid flank pain that migrated down to right lower quadrant and across the lower abdomen. Unable to describe the nature of his discomfort, however when it was present it was severe. Associated nausea vomiting. Denies dysuria, discolored urine, fever. Denies abdominal distention, constipation, diarrhea, or inability to pass flatus. Related Data Previous Rx's ?Medication ?Instructions ?Recorded metformin 500 mg tablet 1,000 mg (2 x 500 mg) PO BID 90 08/29/23 days #360 tabs atorvastatin 10 mg tablet 10 mg PO DAILY #30 tabs 09/19/23 fluticasone 250 mcg-salmeterol 50 1 ea inhalation BID #60 ea 10/10/23 mcg/dose blistr powdr for inhalation (Advair Diskus) albuterol sulfate 90 mcg/actuation 2 inh inhalation Q4-6H PRN 10/21/23 breath activated powder shortness of breath or wheezing #1 inhaler,sensor (Proair Digihaler) ea fexofenadine 180 mg tablet 180 mg PO DAILY #30 tabs 02/20/24 ([facility] Allergy) lisinopril 20 mg tablet 20 mg PO DAILY #30 tabs 02/20/24 oxycodone 5 mg tablet 5 mg PO Q6H PRN pain #20 tabs 03/29/24 cyclobenzaprine 5 mg tablet 5 mg PO BEDTIME #10 tabs 04/05/24 lidocaine 5 % topical patch 1 patch topical DAILY #30 ea 04/05/24 metronidazole 500 mg tablet 2,000 mg (4 x 500 mg) PO ONCE #4 05/17/24 tabs blood sugar diagnostic (OneTouch #100 ea 06/01/24 Ultra Test strips) blood-glucose meter (OneTouch #1 ea 06/01/24 Ultra2 Meter) lancets 30 gauge (OneTouch #200 ea 06/01/24 UltraSoft 2 Lancet) dulaglutide 3 mg/0.5 mL 3 mg (0.5 mL) subcut SA 30 days 07/09/24 subcutaneous pen injector #2.5 mL ketorolac 10 mg tablet 10 mg PO Q6H PRN pain #20 tabs 08/10/24 ondansetron HCl 4 mg tablet 4 mg PO Q8H PRN nausea and 08/10/24 vomiting #10 tabs oxycodone-acetaminophen 5 mg-325 1 tab PO Q8H PRN pain, moderate 08/10/24 mg tablet (Percocet) #10 tabs tamsulosin 0.4 mg capsule (Flomax) 0.4 mg PO DAILY #7 caps 08/10/24 Allergies Allergy/AdvReac Type Severity Reaction Status Date / Time seafood Allergy Severe Hives Verified 08/10/24 17:56 pollen extracts [POLLEN] Allergy Unknown UNKNOWN Verified 08/10/24 17:56 seasonal allergies Allergy Unknown Unknown Uncoded 04/05/24 13:31 Review of Systems Review of Systems: Yes all other systems are reviewed and are negative Constitutional: Constitutional: Denies fatigue and Denies fever(s) Cardiovascular: Cardiovascular: Denies chest pain and Denies dyspnea Respiratory: Respiratory: Denies cough and Denies dyspnea Gastrointestinal: Gastrointestinal: Reports abdominal pain, Denies bloating, Denies constipation, Denies fecal incontinence, Denies diarrhea, Reports nausea and Reports vomiting Genitourinary: Genitourinary: Denies hematuria, Denies dysuria and Reports flank pain Endocrine: Endocrine: Denies fatigue PMFSH Past Medical History Attestation statement: The following information was validated with the patient. Medical History DMII (diabetes mellitus, type 2) History of renal calculi Obstructive sleep apnea Fatty liver Vitamin D deficiency Obesity (BMI 30-39.9) Mood disorder Asthma Hypercholesterolemia Alcohol abuse Tobacco abuse Surgical History History of removal of cyst History of tonsillectomy Family History Family History Father CAD (coronary artery disease) CVD (cardiovascular disease) Hypertension Mother Hypertension Maternal Grandfather Colon cancer Maternal Uncle Myocardial infarction Social History Social History Household Members: Spouse and Children Housing: House Do you presently have visiting nurse or other home services: No Unable to assess alcohol history related to: Unknown Alcohol intake: current Alcohol intake frequency: a few times a month Alcohol type: beer and hard liquor Comment: once a week 7-8 beers - discussed about stopping Patient Tobacco Use Status: Current everyday Tobacco user Tobacco use type: Cigarette Cigarette Packs Per Day: 0.25 Cigarettes Per Day: 6 Years Smoked: 30 e-Cigarette/Vaping Use: Never Used Second Hand Smoke Exposure: Yes Use of substances other than those prescribed or required for medical reasons: Unknown Substance Use Type: Marijuana Advance Directives: No Advance Directives Information Provided: No service: No Current occupational status: employed Sexual orientation: Straight/Heterosexual Cognitive needs: No Hearing needs: No Vision needs: No Physical Exam ED Vital Signs: Vital Signs - 24 hr 08/10/24 17:54 08/10/24 19:05 08/10/24 21:18 Temperature 98.3 F 98.3 F 98.9 F Pulse Rate 76 82 56 Respiratory Rate 18 18 18 Blood Pressure 149/88 H 136/89 134/91 H Pulse Oximetry 98 95 94 Oxygen Delivery Method Room Air Room Air Room Air BMI result Body Mass Index 28.7 Const Other: Alert Orientation/consciousness: patient oriented x3 Resp Effort & Inspection: normal respiratory effort Cardio Other: Normal peripheral perfusion GI Other: Abdomen is soft, non distended, obese, nontender no guarding with deep palpation General: Yes no CVA tenderness Back/Spine/Pelvis Back: no CVA tenderness Skin Other: Warm dry no rash Neuro General: patient oriented x3, gait normal, no focal motor deficits and CN's II-XI intact bilaterally Psych Other: Cooperative Course Course Course Narrative: This is a rapid medical exam performed by Monisha Gomes NP: Additional HPI, ROS, PE not included below will be deferred to primary provider. Patient is a 54-year-old male with pmhx T2DM, alcohol use, asthma, GERD presenting to the emergency department with complaint of abdominal pain radiating to left lower back, vomiting x2. Plan: EKG, labs Medical Decision Making Medical Decision Making MDM Narrative: 54-year-old male with a history of kidney stones, hyperlipidemia, diabetes, hypertension, asthma, morbid obesity, alcohol use disorder, tobacco abuse presents with right flank pain since earlier today. Patient states he developed right mid flank pain that migrated down to right lower quadrant and across the lower abdomen. Unable to describe the nature of his discomfort, however when it was present it was severe. Associated nausea vomiting. Denies dysuria, discolored urine, fever. Denies abdominal distention, constipation, diarrhea, or inability to pass flatus. Problem: Age, diabetes, obesity, kidney stones History: Per patient I have considered the following differential diagnoses: Renal colic, pyelonephritis, bowel obstruction, appendicitis, biliary colic , cholecystitis Plan: Screening labs obtained from triage, we still need to collect a urine sample. I am most concerned for obstructing kidney stone given his history and distribution of discomfort. We will be obtaining a CT scan. Currently the patient has no symptoms. Thought about pyelonephritis, however there is no CVA tenderness, he has no symptoms he is afebrile. Thought about underlying biliary pathology given right-sided symptoms, however he has no palpable pain over the right upper quadrant, he is not complaining of postprandial symptoms. LFTs also normal. Likewise given right-sided symptoms thought about appendicitis, his pain is migrating to the right lower abdomen, however again there was no focal right lower quadrant discomfort on exam. I have independently reviewed the following tests: Labs: Slight leukocytosis, not anemic, no electrolyte abnormality noted, urine not infected passing hematuria CT abdomen and pelvis:. 5mm obstructing left distal ureteral stone approximately 6 cm above the ureterovesicular junction. Moderate hydronephrosis. Mild hydroureter. Mild left perinephric fat stranding. Gallbladder and solid organs otherwise unremarkable. No bowel obstruction, pneumoperitoneum, or pneumatosis. Moderate stool. Normal appendix. Prostatomegaly. Urinary bladder partially decompressed. The bones are intact. IMPRESSION: 5 mm obstructing left distal ureteral stone. Lab Data 08/10/24 18:18 08/10/24 18:18 Labs: Lab Results 08/10/24 08/10/24 08/10/24 Range/Units 18:18 18:38 21:08 WBC 12.4 H (4.8-10.8) X10*3/uL RBC 5.74 (4.60-5.80) X10*6/uL Hgb 16.9 (14.0-18.0) g/dl Hct 48.2 (42.0-52.0) % MCV 84.0 (80.0-98.0) fL MCH 29.4 (27.0-33.0) pg MCHC 35.1 (31.0-36.0) g/dl RDW 12.9 (11.0-16.0) % Plt Count 221 (160-400) X10*3/uL MPV 10.0 (9.4-12.4) fL Immature Gran % (Auto) 0.2 (0.0-0.4) % Neut % (Auto) 77.2 H (45-73) % Lymph % (Auto) 13.0 L (20-40) % [place] % (Auto) 6.6 (2-11) % Eos % (Auto) 2.7 (0-4) % Baso % (Auto) 0.3 (0-2) % Lymph # (Auto) 1.6 (1.2-4.9) X10*3/uL [place] # (Auto) 0.8 (0.1-1.2) X10*3/uL Eos # (Auto) 0.3 (0.0-0.4) X10*3/uL Baso # (Auto) 0.0 (0.0-0.2) X10*3/uL Abs Immat Gran (auto) 0.02 (0.00-0.03) X10*3/uL Absolute Neuts (auto) 9.5 H (2.0-8.3) x10*3/uL Absolute Nucleated RBC 0.000 (0.0-0.012) X10*3/uL Nucleated RBC % (auto) 0.0 (0.0-0.2) /100WBC PT 12.2 (10.9-12.4) SEC INR 1.1 (0.9-1.1) Sodium 139 (135-145) mmol/L Potassium 4.3 (3.3-5.1) mmol/L Chloride 106 (96-108) mmol/L Carbon Dioxide 22 (22-29) mmol/L Anion Gap 15 (12-20) BUN 16 (9-16) mg/dL Creatinine 1.04 (0.5-1.4) mg/dL Estim Creat Clear Calc 94.7 Estimated GFR > 60 POC Glucose 158 H (60-115) mg/dL Random Glucose 200 H (60-115) mg/dL Calcium 9.4 (8.4-10.2) mg/dL Total Bilirubin 0.7 (0.0-1.0) mg/dL AST 35 (5-37) U/L ALT 58 H (0-40) U/L Alkaline Phosphatase 89 (39-117) U/L Troponin I High Sens < 2.7 (<3.5-35.0) ng/L Total Protein 7.8 (6.5-8.0) g/dL Albumin 4.3 (3.5-5.0) g/dL Lipase 97 H (8-78) U/L Urine Color Yellow Urine Appearance Clear Urine pH 6.0 (5.0-9.0) Ur Specific [place] 1.020 (1.005-1.025) Urine Protein Negative (Neg-Trace) mg/dL Urine Glucose (UA) 250 H (Negative) mg/dL Urine Ketones Negative (Negative) mg/dL Urine Blood Moderate (2+) H (Negative) Urine Nitrite Negative (Negative) Ur Leukocyte Esterase Trace H (Negative) Urine RBC 6-10 H (0-2) /HPF Urine WBC 0-5 (0-5) /HPF Ur Squamous Epith Cells 0-2 (0-2) /HPF Urine Bacteria None Seen (None Seen) Hyaline Casts 0-2 (0-2) /LPF Discharge Plan Discharge Clinical Impression: Left ureteral stone Patient Disposition: Home, Self-Care Instructions: Renal Colic (ED), How to Strain Your Urine (ED) Additional Instructions: You were currently passing a 5 mm stone, it is almost at the juncture where it we will meet the bladder. It is left-sided. You should pass the stone within the next day. See home care instructions. Be sure to increase your water intake. Take the Flomax as directed, this will help to induce urine flow. Uses Zofran as needed for nausea. Use the oxycodone as needed for pain. Use the ketorolac as directed, this is an anti-inflammatory, it will help with the pain process take it with food. Return precautions if you can not eat or drink secondary to intractable vomiting, if you develop a fever, if you develop severe abdominal pain that we will not stop, or if you can not urinate, return to the emergency department for assessment. I am providing you with a contact for our urology service in the event that you require their care. Prescriptions: New tamsulosin [Flomax] 0.4 mg capsule 0.4 mg PO DAILY Qty: 7 0RF ondansetron HCl 4 mg tablet 4 mg PO Q8H PRN (Reason: nausea and vomiting) Qty: 10 0RF ketorolac 10 mg tablet 10 mg PO Q6H PRN (Reason: pain) Qty: 20 0RF Rx Instructions: maximum total duration of 5 days from all oral, intranasal, or parenteral formulations. The patient received an intramuscular dose of Toradol here in the emergency department oxycodone-acetaminophen [Percocet] 5-325 mg tablet 1 tab PO Q8H PRN (Reason: pain, moderate) Qty: 10 0RF Rx Instructions: Partial Fill upon patient request. No Action atorvastatin 10 mg tablet 10 mg PO DAILY Qty: 30 1RF Proair Digihaler 90 mcg/actuation aero powdr breath act w/sensor 2 inh inhalation Q4-6H PRN (Reason: shortness of breath or wheezing) Qty: 1 0RF metronidazole 500 mg tablet 2,000 mg PO ONCE Qty: 4 0RF (DME) blood-glucose meter [OneTouch Ultra2 Meter] Misc See Rx Instructions .Route Qty: 1 0RF Rx Instructions: As directed (DME) OneTouch Ultra Test Strip See Rx Instructions .ROUTE .MEDSUPPLY Qty: 100 3RF Rx Instructions: As directed check the blood sugar once a day (DME) lancets [OneTouch UltraSoft 2 Lancet] 30 gauge misc See Rx Instructions .Route Qty: 200 3RF Rx Instructions: As directed dulaglutide 3 mg/0.5 mL pen injector 3 mg subcut SA 30 Days Qty: 2.5 3RF oxycodone 5 mg tablet 5 mg PO Q6H PRN (Reason: pain) Qty: 20 0RF Rx Instructions: Partial Fill upon patient request. metformin 500 mg tablet 1,000 mg PO BID 90 Days Qty: 360 2RF fluticasone propion-salmeterol [Advair Diskus] 250-50 mcg/dose blister with device 1 ea INHALATION BID Qty: 60 11RF lisinopril 20 mg tablet 20 mg PO DAILY Qty: 30 5RF fexofenadine [[facility]ee Allergy] 180 mg tablet 180 mg PO DAILY Qty: 30 4RF cyclobenzaprine 5 mg tablet 5 mg PO BEDTIME Qty: 10 0RF lidocaine 5 % adhesive patch,medicated 1 patch topical DAILY Qty: 30 0RF Rx Instructions: leave on most painful area for up to 12 hrs Stand Alone Forms: Work/School Release Print Language: Norwegian
--- NOTE | 2024-08-10 17:57 | ECG_ITS ---
Test Reason : ABD PAIN Blood Pressure : */* mmHG Vent. Rate : 66 BPM Atrial Rate : 66 BPM P-R Int : 164 ms QRS Dur : 104 ms QT Int : 392 ms P-R-T Axes : 60 -52 34 degrees QTcB Int : 410 ms Normal sinus rhythm Left anterior fascicular block Cannot rule out Inferior infarct (cited on or before 28-Apr-2020) Abnormal ECG When compared with ECG of 30-Jul-2023 09:05, No significant change was found Referred By: Magdalena Gomes Electronically Signed By: ELPIDIO PRATT MD
[2024-08-10 18:22] LABS: MANUAL DIFF FLAG NO
[2024-08-10 18:23] LABS: Basophils Percent Auto 0.3 % (0-2); Eosinophils Absolute Auto 0.3 X10*3/uL (0.0-0.4); Eosinophils Percent Auto 2.7 % (0-4); Hematocrit 48.2 % (42.0-52.0); Hemoglobin 16.9 g/dl (14.0-18.0); Imm Gran Abs Auto 0.02 X10*3/uL (0.00-0.03); Imm Gran Pct Auto 0.2 % (0.0-0.4); Lymphocytes Absolute Auto 1.6 X10*3/uL (1.2-4.9); Mean Corpuscular HGB Conc 35.1 g/dl (31.0-36.0); Mean Corpuscular Hemoglobin 29.4 pg (27.0-33.0); Monocytes Absolute Auto 0.8 X10*3/uL (0.1-1.2); Monocytes Percent Auto 6.6 % (2-11); Neutrophils Absolute Auto 9.5 x10*3/uL (2.0-8.3); Neutrophils Percent Auto 77.2 % (45-73); Platelet Count 221 X10*3/uL (160-400); Red Blood Count 5.74 X10*6/uL (4.60-5.80); Red Cell Distribution Width 12.9 % (11.0-16.0); White Blood Count 12.4 X10*3/uL (4.8-10.8)
[2024-08-10 18:39] LABS: Alanine Aminotransferase 58 U/L (0-40); Albumin Level 4.3 g/dL (3.5-5.0); Alkaline Phosphatase 89 U/L (39-117); Anion Gap 15 (12-20); Aspartate Amino Transferase 35 U/L (5-37); Bilirubin Total 0.7 mg/dL (0.0-1.0); Blood Urea Nitrogen 16 mg/dL (9-16); Calcium 9.4 mg/dL (8.4-10.2); Carbon Dioxide 22 mmol/L (22-29); Chloride 106 mmol/L (96-108); Creatinine Clr Calc Pharmacy 94.7; Estimated Glomerular Filt Rate > 60; Glucose Random 200 mg/dL (60-115); Lipase 97 U/L (8-78); Potassium 4.3 mmol/L (3.3-5.1); Sodium 139 mmol/L (135-145); Total Protein 7.8 g/dL (6.5-8.0)
[2024-08-10 18:43] LABS: Glucose, Whole Blood 158 mg/dL (60-115)
[2024-08-10 18:48] LABS: INTERNATIONAL NORM RATIO 1.1 (0.9-1.1); Prothrombin Time 12.2 SEC (10.9-12.4)
[2024-08-10 18:52] LABS: Troponin-I High Sensitivity < 2.7 ng/L (<3.5-35.0)
[2024-08-10 19:05] VITALS: BP 136/89; PULSE 82; RESP 18; TEMP 36.8; O2SAT 95
[2024-08-10 21:16] LABS: Appearance Urine Clear; Color Urine Yellow; Glucose Urine UA 250 mg/dL (Negative); Leukocyte Esterase Urine Trace (Negative); Nitrite Urine Negative (Negative); UMIC TRIGGER UACC YES; Urine Blood Moderate (2+) (Negative); Urine Ketones Negative (Negative); Urine Protein Negative (Neg-Trace)
[2024-08-10 21:18] VITALS: BP 134/91; PULSE 56; RESP 18; TEMP 37.2; O2SAT 94
[2024-08-10 21:21] LABS: Bacteria Urine None Seen (None Seen); Hyaline Casts Urine 0-2 /LPF (0-2); Squamous Epithelial Cell Urine 0-2 /HPF (0-2); WBC Urine 0-5 /HPF (0-5)
[2024-08-10 23:34] VITALS: BP 133/92; PULSE 59; RESP 16; TEMP 37.6; O2SAT 96
[2024-08-10] MEDS: Ketorolac Tromethamine 15 MG/ML VIAL IM (23:37)
[2024-08-10] MEDS: Tamsulosin HCL 0.4 MG CAPSULE PO (23:37)
[2024-08-10 23:45] VITALS: BP 133/92; PULSE 59; RESP 16; TEMP 37.6; O2SAT 96
== END 2024-08-10 23:46 | disposition home or self-care (01) ==
PROVIDERS: Physician Assistant Medical; Registered Nurse Emergency; Emergency Provider Emergency Medicine; PCP Internal Medicine
DX: N13.2 Hydronephrosis with renal and ureteral calculous obstruction (principal); R10.31 Right lower quadrant pain; E11.9 Type 2 diabetes mellitus without complications; I10 Essential (primary) hypertension; E78.5 Hyperlipidemia, unspecified; J45.909 Unspecified asthma, uncomplicated; F17.210 Nicotine dependence, cigarettes, uncomplicated; F12.90 Cannabis use, unspecified, uncomplicated; Z87.442 Personal history of urinary calculi; Z79.02 Long term (current) use of antithrombotics/antiplatelets; Z79.899 Other long term (current) drug therapy; Z79.84 Long term (current) use of oral hypoglycemic drugs
CPT/HCPCS: 36415; 74176; 80053; 81001; 82947; 83690; 84484; 85025; 85610; 93005; 96372; 99284; 99285; J1885

== ENCOUNTER → 2024-08-10 17:57 | Outpatient (BNV) | payer OTHER, SELFPAY | PROVIDERS: Emergency Provider Emergency Medicine; PCP Internal Medicine; Visit Provider Internal Medicine Cardiovascular Disease | DX: I44.4 Left anterior fascicular block (principal) | CPT/HCPCS: 93010 ==

== ENCOUNTER → 2024-08-10 20:27 | Outpatient (BNV) | payer OTHER, SELFPAY | PROVIDERS: Emergency Provider Emergency Medicine; PCP Internal Medicine; Visit Provider Radiology Diagnostic Radiology | DX: N20.1 Calculus of ureter (principal) | CPT/HCPCS: 74176 ==

== ENCOUNTER 2024-10-22 08:56 | Outpatient (AMB) | payer OTHER, SELFPAY ==
--- NOTE | 2024-10-22 09:09 | MHC.PC.OV ---
Vital Signs 10/22/24 09:11 Height 5 ft 11 in Weight 209 lb 2 oz BMI 29.2 BP 110/80 Blood Pressure Location Lt brachial Position Sitting Pulse 56 Pulse Source Pulse Oximeter Temp 97.1 F Temp Source Temporal Artery Scan Pulse Oximetry (%) 96 Oxygen Delivery Method Room Air Intake Visit Reasons: DM Follow Up Intake Note: Patient is here to follow up on DM. Director Data Required: No Retail Supervisor: Not Required per policy Accompanied by: Self / Same As Patient Allergies seafood Allergy (Severe, Verified 10/22/24 09:10) Hives pollen extracts (POLLEN) Allergy (Unknown, Verified 10/22/24 09:10) UNKNOWN seasonal allergies Allergy (Unknown, Uncoded 10/22/24 09:10) Unknown Medication List - Last Reconciled 10/22/24 by Ed Agarwal MD albuterol sulfate 90 mcg/actuation (Proair Digihaler) 2 inhalations inhalation Q4-6H PRN atorvastatin 10 mg PO DAILY blood sugar diagnostic ([employer] Ultra Test strips) As directed check the blood sugar once a day blood-glucose meter ([employer] Ultra2 Meter) As directed cyclobenzaprine 5 mg PO BEDTIME fexofenadine (Deedee Allergy) 180 mg PO DAILY fluticasone propion-salmeterol 250-50 mcg/dose (Advair Diskus) 1 ea inhalation BID ketorolac 10 mg PO Q6H PRN lancets (LinksifyTouch UltraSoft 2 Lancet) As directed lidocaine 5% 1 patch topical DAILY lisinopril 20 mg PO DAILY ondansetron HCl 4 mg PO Q8H PRN tamsulosin (Flomax) 0.4 mg PO DAILY Tobacco use date assessed: 10/22/24 Dental Screening Dental Screen Date: 04/05/24 [facility] Medical History DMII (diabetes mellitus, type 2) History of renal calculi Obstructive sleep apnea Fatty liver Vitamin D deficiency Obesity (BMI 30-39.9) Mood disorder Asthma Hypercholesterolemia Alcohol abuse Tobacco abuse Surgical History History of removal of cyst History of tonsillectomy Family History Father CAD (coronary artery disease) CVD (cardiovascular disease) Hypertension Mother Hypertension Maternal Grandfather Colon cancer Maternal Uncle Myocardial infarction Social History Household Members: Spouse and Children Housing: House Do you presently have visiting nurse or other home services: No Unable to assess alcohol history related to: Unknown Alcohol intake: current Alcohol intake frequency: a few times a month Alcohol type: beer and hard liquor Comment: once a week 7-8 beers - discussed about stopping Patient Tobacco Use Status: Current everyday Tobacco user Tobacco use type: Cigarette Cigarette Packs Per Day: 0.25 Cigarettes Per Day: 5 Years Smoked: 30 e-Cigarette/Vaping Use: Never Used Second Hand Smoke Exposure: Yes Substance Use Type: Marijuana service: No Current occupational status: employed Sexual orientation: Straight/Heterosexual Cognitive needs: No Hearing needs: No Vision needs: No Questionnaire PHQ-9 Over the last 2 weeks, how often have you been bothered by any of the following problems? 1. Little interest or pleasure in doing things: not at all 2. Feeling down, depressed, or hopeless: not at all 3. Trouble falling or staying asleep, or sleeping too much: not at all 4. Feeling tired or having little energy: not at all 5. Poor appetite or overeating: not at all 6. Feeling bad about yourself - or that you are a failure or have let yourself or your family down: not at all 7. Trouble concentrating on things, such as reading the newspaper or watching television: not at all 8. Moving or speaking so slowly that other people could have noticed. Or the opposite - being so fidgety or restless that you have been moving around a lot more than usual: not at all 9. Thoughts that you would be better off or of hurting yourself in some way: not at all Total score: 0 Depression Screening Interpretation: Negative Depression Screening Done: Yes Source: Developed by Drs. Raffi Leung, Maria Esther Finney, Fam Camilo and colleagues, with an educational sawyer from [employer]. Thrive Questionnaire Date Thrive assessed: 10/22/24 I am a: Patient What is your living situation today?: I have a steady place to live Within the past 12 months, did the food you bought not last and you didn't have the money to get more?: Never true Within the past 12 months, did you worry whether your food would run out before you got money to buy more?: Never true Do you have trouble paying for medicines?: No Do you have trouble getting transportation to medical appointments?: No Do you have trouble paying your heating and electricity bill?: No Do you have trouble taking care of your child, family member or friend?: No Do you have trouble with day-to-day activities such as bathing, preparing meals, shopping, managing finances, etc.?: No Are you currently unemployed and looking for a job?: No Are you interested in more education?: No Please select the resources that you would like help with: None Currently or been in a relationship where the following occur: No concerns reported THRIVE Score: 0 AUDIT C Alcohol Use Questionnaire (AUDIT-C) 1. How often do you have a drink containing alcohol?: Never Total Score: 0 SIMON-7 AMB Questionnaire SIMON-7 Date SIMON - 7 assessed: 10/22/24 Feeling nervous, anxious, or on edge: 0 = Not at all Not being able to stop or control worryin = Not at all Worrying too much about different things: 0 = Not at all Trouble relaxin = Not at all Being so restless that it is hard to sit still: 0 = Not at all Becoming easily annoyed or irritable: 0 = Not at all Feeling afraid as if something awful might happen: 0 = Not at all Total SIMON-7 score (0-4 normal; 5-9 mild; 10-14 moderate; 15-21 severe): 0 Source: Developed by Drs. Raffi Leung, Maria Esther Finney, Fam Camilo and colleagues, with an educational sawyer from [employer]. Physical exam (Primary Care) Vital Signs: Last Vital Signs Temp 97.1 F 10/22/24 09:11 Pulse 56 10/22/24 09:11 BP 110/80 10/22/24 09:11 Pulse Ox 96 10/22/24 09:11 Oxygen Delivery Method Room Air 10/22/24 09:11 BMI result Body Mass Index 29.2 Tobacco/Smoking Status: Tobacco use Status Tobacco use date assessed 10/22/24 10/22/24 09:20 Patient Tobacco Use Status Current everyday Tobacco 10/22/24 09:20 Tobacco use type Cigarette 10/22/24 09:20 e-Cigarette/Vaping Use Never Used 10/22/24 09:20 PHQ-9: PHQ-9 Score PHQ-9: Total score 0 10/22/24 10:09 Depression Screening Interpretation: Negative Thrive Assessment: Date of Thrive Assessment Date Thrive assessed 10/22/24 10/22/24 09:20 Currently or been in a relationship where the following occur: No concerns reported Const General: alert; No acute distress Eyes Conjunctivae: conjunctivae normal Resp Auscultation: clear to auscultation bilaterally Cardio Rate: regular rate Rhythm: regular rhythm GI Inspection: Yes normal to inspection Extrem General: Yes normal to inspection and No edema Results AMB Hemoglobin A1c AMB Hemoglobin A1c 6.5 % Last Edit by WHITNEY Ramos on 10/22/24 09:35 Immunizations Boostrix Tdap 2.5 Lf unit-8 mcg-5 Lf/0.5 mL intramuscular syringe Performing Provider: Ed Agarwal MD [facility] Administered by: Vicky Reza CMA on 10/22/24 10:08 Dose Route Admin Location Dispensed Lot Number Expiration Date [facility] 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 0.5 mL IM Left Deltoid 0.5 mL [id number] 05/21/26 [id number] [employer] Total Dispensed Waste 0.5 mL 0 % VIS Given Date VIS Provided VIS Publication Date 10/22/24 Single Vaccine 20 Eligibility Eligibility Date Funding Source Not [facility] Eligible 10/22/24 Private Results Reviewed Results Reviewed: Laboratory Last Values Hgb A1c (Clinic) 6.5 % (4.0-6.0) H 10/22/24 09:08 Coding Level of Care Code Est Pt Level 4 (16631) Complex EM visit Add On G2211 Diagnoses Type 2 diabetes mellitus with hyperglycemia, without long-term current use of insulin E11.65 Diabetes mellitus 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 station 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 insulin use: without nursing home use Hypercholesterolemia E78.00 Primary hypertension I10 Hypertension type: primary hypertension Overweight (BMI 25.0-29.9) E66.3 Gastroesophageal reflux disease without esophagitis K21.9 Esophagitis presence: without esophagitis Colon cancer screening Z12.11 Obstructive sleep apnea G47.33 Tobacco abuse Z72.0 Nephrolithiasis N20.0 Assessment & Plan Assessment & Plan (1) Type 2 diabetes mellitus with hyperglycemia: Comment: Eye and lasik Code(s): E11.65 - Type 2 diabetes mellitus with hyperglycemia Category: Medical Qualifiers: Diabetes mellitus chief station engineer insulin use: without nursing home use Qualified Code(s): E11.65 - Type 2 diabetes mellitus with hyperglycemia Plan: Decrease the amount of carbohydrate intake, pasta, bread, rice and potatoes are all sugar and that is aside from all the sweet stuff, remember that fruits are good but they are Sweet also. Hemoglobin A1c goal of less than 6.5 patient on Trulicity at 3 mg once a week metformin a 1000 mg twice a day (2) Hypercholesterolemia: Code(s): E78.00 - Pure hypercholesterolemia, unspecified Category: Medical Plan: Avoid fried foods, chicken skin, eggs, butter margarine, pastries and meat. Be it pork or beef they have a lot of cholesterol LDL goal of less than 100 and triglyceride of less than 150 on atorvastatin 10 mg once a day will need blood work (3) Hypertension: Code(s): I10 - Essential (primary) hypertension Category: Medical Qualifiers: Hypertension type: primary hypertension Qualified Code(s): I10 - Essential (primary) hypertension Plan: Continue with blood pressure medication. Decrease salt intake and exercise patient is on lisinopril 20 mg once a day (4) Overweight (BMI 25.0-29.9): Code(s): E66.3 - Overweight Category: Medical Plan: Diet and exercise (5) GERD (gastroesophageal reflux disease): Code(s): K21.9 - Gastro-esophageal reflux disease without esophagitis Category: Medical Qualifiers: Esophagitis presence: without esophagitis Qualified Code(s): K21.9 - Gastro-esophageal reflux disease without esophagitis Plan: Avoid the foods that causes that usually spicy foods, tomato products, juices, coffee, soda and foods that your sensitive to. After eating do not lie down, allow 3-4 hours before in lie down. And keep the head of bed above 30 degrees to avoid the acid from going up. (6) Colon cancer screening: Code(s): Z12.11 - Encounter for screening for malignant neoplasm of colon Category: Medical Plan: Patient is reminded about colonoscopy (7) Obstructive sleep apnea: Comment: Cannot tolerate CPAP Code(s): G47.33 - Obstructive sleep apnea (adult) (pediatric) Category: Medical Plan: Discussed importance of treatment of sleep apnea. Continue to lose the weight (8) Tobacco abuse: Code(s): Z72.0 - Tobacco use Category: Medical Plan: Patient is strongly advised to stop smoking (9) Nephrolithiasis: Code(s): N20.0 - Calculus of kidney Category: Medical Plan: Keep well hydrated Plan History of Present Illness The patient is a 54-year-old male presenting for follow-up care and management of multiple chronic conditions including diabetes mellitus, hypertension, and hypercholesterolemia. The patient has a history of hypercholesterolemia and is currently on atorvastatin 10 mg once daily with a goal of LDL cholesterol less than 100 mg/dL and triglycerides less than 150 mg/dL. His last cholesterol test was conducted in August 2023, and a repeat test is planned in three months. The patient has asthma and requires an albuterol inhaler, which he recently refilled after a period without it. He is advised to stop smoking as it exacerbates his asthma symptoms. The patient suffers from obstructive sleep apnea but cannot tolerate CPAP therapy. The importance of treating sleep apnea was discussed during the visit. The patient has diabetes mellitus with a current hemoglobin A1c of 6.5%. He was previously on Trulicity and metformin but discontinued these medications due to perceived side effects, although his A1c remains well-controlled. The patient has a history of hypertension and is currently on lisinopril 20 mg once daily. The patient has a history of alcohol abuse and was reminded about the importance of a colonoscopy, which has not yet been completed. In July 2024, the patient visited the ER with left abdominal and back pain, which was diagnosed as a left ureteral stone. He passed the stone and was advised to maintain adequate hydration to prevent recurrence. Health Maintenance - Colonoscopy reminder for colon cancer screening - Blood work scheduled in three months for cholesterol and diabetes management - Discussion on smoking cessation to improve asthma and overall health - Importance of hydration to prevent nephrolithiasis recurrence - Discussion on the benefits of the shingles vaccine - Tetanus vaccine recommended due to occupational exposure to metal Social History - Smoking: Patient smokes approximately five cigarettes per day, with increased smoking at work due to peer influence. 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 Review of Systems - Gastrointestinal: Reports left abdominal pain in July 2024, resolved after passing a ureteral stone. - Respiratory: Reports asthma, exacerbated by smoking. - Endocrine: Denies current symptoms of hyperglycemia, with A1c at 6.5%. Physical Exam Results - Labs: Hemoglobin A1c at 6.5%, normal blood count, normal electrolytes, elevated liver enzymes, renal function at 1.04. - Imaging: ER visit in July 2024 confirmed left ureteral stone. Plan The patient will continue atorvastatin for hypercholesterolemia management, with a repeat cholesterol test scheduled in three months to monitor LDL and triglyceride levels. For asthma management, the patient will continue using an albuterol inhaler and is strongly advised to cease smoking to prevent exacerbations. Regarding obstructive sleep apnea, the patient is encouraged to explore alternative treatments since CPAP is not tolerated. For diabetes management, the patient will not resume Trulicity or metformin at this time, given the current A1c level of 6.5%. Continued weight loss and dietary management are recommended to maintain glycemic control without medication. The patient will continue lisinopril for hypertension management. The patient is reminded to schedule a colonoscopy for preventative care and to maintain adequate hydration to prevent nephrolithiasis recurrence. Vaccinations discussed include the shingles vaccine and tetanus booster due to occupational exposure. Patient was informed and verbally consented to the use of an ambient scribe for clinic note documentation during this visit. Discussion Notes During the visit, I discussed the importance of managing chronic conditions such as hypercholesterolemia, asthma, and diabetes mellitus with the patient. We reviewed the need for regular blood tests to monitor cholesterol and glucose levels, and I emphasized the benefits of smoking cessation for asthma control. I also highlighted the significance of maintaining hydration to prevent kidney stones and encouraged the patient to consider vaccinations for shingles and tetanus. Patient Instructions - Continue taking atorvastatin as prescribed. - Use albuterol inhaler as needed for asthma symptoms. - Schedule and complete a colonoscopy. - Maintain adequate hydration to prevent kidney stones. - Consider receiving the shingles and tetanus vaccines. - Aim to quit smoking to improve respiratory health. Orders: Orders AMB Hemoglobin A1c Today E11.65 - Type 2 diabetes mellitus with hyperglycemia Lipid Panel 3 Months E11.65 - Type 2 diabetes mellitus with hyperglycemia, E78.00 - Pure hypercholesterolemia, unspecified Creatinine Urine 3 Months E11.65 - Type 2 diabetes mellitus with hyperglycemia Microalbumin, Random (w Creat) 3 Months E11.65 - Type 2 diabetes mellitus with hyperglycemia Thyroid Stimulating Hormone 3 Months E11.65 - Type 2 diabetes mellitus with hyperglycemia Vitamin B12 and Folate 3 Months E11.65 - Type 2 diabetes mellitus with hyperglycemia Prostate Specific Antigen Scr 3 Months E11.65 - Type 2 diabetes mellitus with hyperglycemia Hemoglobin A1c 3 Months E11.65 - Type 2 diabetes mellitus with hyperglycemia TDaP Immunization Today Z23 - Encounter for immunization Complete Blood Count Auto Diff 3 Months E11.65 - Type 2 diabetes mellitus with hyperglycemia Comprehensive Met. Panel 3 Months E11.65 - Type 2 diabetes mellitus with hyperglycemia Free T4 (Free Thyroxine) 3 Months E11.65 - Type 2 diabetes mellitus with hyperglycemia Uric Acid 3 Months E11.65 - Type 2 diabetes mellitus with hyperglycemia Medications: Refilled albuterol sulfate 90 mcg/actuation (Proair Digihaler) 2 inhalations inhalation Q4-6H PRN 1 ea 0RF shortness of breath or wheezing J45.909 - Unspecified asthma, uncomplicated
[2024-10-22 09:11] VITALS: BP 110/80; PULSE 56; TEMP 36.2; O2SAT 96; BMI 29.2
--- OUTSIDE RECORDS SUMMARY | 2024-10-22 09:15 | XMS_ITS | Clinical Summary ---
Author Organization Formerly [facility] Address [address] [place] [address] Care Team Providers Care Yardage Estimator Name Role Phone Ed Agarwal MD Primary Care Provider [phone] Allergies Active Allergy Reactions Criticality Noted Date Comments Shellfish-Derived Products Hives Medium Medications amoxicillin-cla vulanate (AUGMENTIN) 875-125 MG per tablet Take 1 [...] Assigned at Male 09/28/2022 7:24 PM EDT Legal Sex Male 6:40 PM EST Gender Identity Male 09/28/2022 7:24 PM EDT Sexual Orientation Choose not to disclose 2022 7:24 PM EDT Last Filed Vital Signs Vital Sign Reading Time Taken Comments Blood Pressure 118/90 09/29/2022 7:58 AM EDT Pulse 66 09/29/2022 7:58 AM EDT Temperature 35.9 C (96.7 F) 09/29/2022 7:58 AM EDT Respiratory Rate 18 09/29/2022 7:58 AM EDT [...] C Virus Screening 1970 HIV Screening 1983 DTaP/Tdap/Td Vaccines (1 - Tdap) 1989 Hepatitis B Vaccines (1 of 3 - 19+ 3-dose series) 02/28 Colonoscopy 2015 Pneumococcal Vaccines 50+ (1 of 1 - PCV) 2020 Zoster (Shingles) Vaccine (1 of 2) 2020 COVID-19 Vaccine (1 - 2023- season) 2023 Influenza Vaccine 10/29/2024 Insurance [facility] Advance Directives * Full Code (Latest Code Status on File) Date Activated Date Inactivated Comments 09/28/2022 10:31 PM Care Teams Yardage Estimator Relationship Specialty Start Date End Date Ed Agarwal MD [address] [place] [address] Dr Osullivan [address] [place] [address] [phone] PCP - General Internal Medicine 09/28/22
--- OUTSIDE RECORDS SUMMARY | 2024-10-22 09:15 | XMS_ITS ---
Author Name [facility] Organization Unknown History of Medication Use Medication Directions Dispensed Refills Start Date End Date Stat us amoxicillin-clavulan ate (AUGMENTIN) 875-125 MG per tablet Take 1 tablet by mouth 2 (two) times a day. Take as directed or until you run out 09/29/2022 active Allergies Allergen Reaction Severity Comment Documented Date Source Statu s [employer] HIVES 09/29/2022 [facility] active Problems Problem Status Onset Date Problem Type Date of Resoluti on Source Peritonsillar abscess active 2022-09-28 ProblemAct CCT Encounters Encounter Type Encounter Reason Primary Diagnosis Location Date Observation Peritonsillar abscess [facility] 09/28/2022 Ambulatory [facility] 09/28/2022 Care Team Organization Name Specialty Phone Email Start Date End [facility] [place] [facility] 09/28/2022 09/28/2022 [place] 09/28/2022
== END 2024-10-22 10:16 | disposition home or self-care (01) ==
LOC: HO.HMCH 08:57
PROVIDERS: PCP Internal Medicine; Visit Provider Internal Medicine
DX: E11.65 Type 2 diabetes mellitus with hyperglycemia (principal); E78.00 Pure hypercholesterolemia, unspecified; I10 Essential (primary) hypertension; E66.3 Overweight; K21.9 Gastro-esophageal reflux disease without esophagitis; Z12.11 Encounter for screening for malignant neoplasm of colon; G47.33 Obstructive sleep apnea (adult) (pediatric); Z72.0 Tobacco use; N20.0 Calculus of kidney; Z23 Encounter for immunization

== ENCOUNTER → 2024-10-22 08:56 | Outpatient (BNVA) | payer OTHER, SELFPAY | PROVIDERS: PCP Internal Medicine; Visit Provider Internal Medicine | DX: E11.65 Type 2 diabetes mellitus with hyperglycemia (principal); E78.00 Pure hypercholesterolemia, unspecified; I10 Essential (primary) hypertension; K21.9 Gastro-esophageal reflux disease without esophagitis; E66.3 Overweight; G47.33 Obstructive sleep apnea (adult) (pediatric); N20.0 Calculus of kidney; J45.909 Unspecified asthma, uncomplicated; F17.210 Nicotine dependence, cigarettes, uncomplicated; Z23 Encounter for immunization; Z99.89 Dependence on other enabling machines and devices; Z79.899 Other long term (current) drug therapy; Z68.29 Body mass index [BMI] 29.0-29.9, adult | CPT/HCPCS: 83036; 90471; 90715; 99212 ==

== ENCOUNTER 2025-01-07 14:52 | Outpatient (AMB) | payer OTHER, SELFPAY ==
[2025-01-07 15:06] VITALS: BP 118/66; PULSE 62; RESP 18; TEMP 36.3; O2SAT 97; BMI 29.8
--- NOTE | 2025-01-07 15:06 | A.OFFPC_ITS ---
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: No Accompanied by: Self / Same As Patient Allergies seafood Allergy (Severe, Verified 01/07/25 15:07) Hives pollen extracts (POLLEN) Allergy (Unknown, Verified 01/07/25 15:07) UNKNOWN seasonal allergies Allergy (Unknown, Uncoded 10/22/24 09:10) Unknown Tobacco use date assessed: 01/07/25 Dental Screening Dental Screen Date: 01/07/25 Did you have a dental visit in the last 12 months?: Yes Did you have a dental problem in the last 6 months where you did not have access to dental care?: No Was dental information given to patient?: Patient has dentist HPI HPI Comments History of Present Illness Details The patient is a 54-year-old male presenting with an episode of syncope. The episode occurred last Friday at his cousin's house, where he blacked out while sitting in a chair and fell to his side, hitting his head on a wooden floor. He was pale and did not recall the fall, only becoming aware when he was getting up and experiencing blurry vision. This was the first occurrence of such an episode, and there were no seizures observed. The following day, he felt fatigued and slept throughout the day. No imaging or emergency medical evaluation was conducted at the time of the incident, as the patient declined hospital visit. The patient reported a severe cough preceding the blackout, which may have contributed to the syncope. [facility] Medical History DMII (diabetes mellitus, type 2) History of renal calculi Obstructive sleep apnea Fatty liver Vitamin D deficiency Obesity (BMI 30-39.9) Mood disorder Asthma Hypercholesterolemia Alcohol abuse Tobacco abuse Surgical History History of removal of cyst History of tonsillectomy Family History Father CAD (coronary artery disease) CVD (cardiovascular disease) Hypertension Mother Hypertension Maternal Grandfather Colon cancer Maternal Uncle Myocardial infarction Social History Household Members: Spouse and Children Housing: House Do you presently have visiting nurse or other home services: No Alcohol intake: current Alcohol intake frequency: a few times a month Alcohol type: beer and hard liquor Comment: once a week 7-8 beers - discussed about stopping Patient Tobacco Use Status: Current everyday Tobacco user Tobacco use type: Cigarette Cigarette Packs Per Day: 0.25 Cigarettes Per Day: 5 Years Smoked: 30 e-Cigarette/Vaping Use: Never Used Second Hand Smoke Exposure: Yes Substance Use Type: Marijuana service: No Current occupational status: employed Sexual orientation: Straight/Heterosexual Cognitive needs: No Hearing needs: No Vision needs: No Questionnaire Thrive Questionnaire Date Thrive assessed: 10/22/24 I am a: Patient What is your living situation today?: I have a steady place to live Within the past 12 months, did the food you bought not last and you didn't have the money to get more?: Never true Within the past 12 months, did you worry whether your food would run out before you got money to buy more?: Never true Do you have trouble paying for medicines?: No Do you have trouble getting transportation to medical appointments?: No Do you have trouble paying your heating and electricity bill?: No Do you have trouble taking care of your child, family member or friend?: No Do you have trouble with day-to-day activities such as bathing, preparing meals, shopping, managing finances, etc.?: No Are you currently unemployed and looking for a job?: No Are you interested in more education?: No Please select the resources that you would like help with: None Currently or been in a relationship where the following occur: No concerns reported THRIVE Score: 0 AUDIT C Alcohol Use Questionnaire (AUDIT-C) 2. How many drinks containing alcohol do you have on a typical day when you are drinking?: 1 or 2 3. How often do you have six or more drinks on one occasion?: Weekly Total Score: 3 SIMON-7 AMB Questionnaire SIMON-7 Date SIMON - 7 assessed: 10/22/24 Source: Developed by Drs. Raffi Leung, Maria Esther BFam Hugo and colleagues, with an educational sawyer from [employer]. Review of Systems Const Details: Positives besides what was mentioned in HPI are in BOLD Constitutional: No Weight Change, No Fever, No Chills, No Night Sweats, No Fatigue, No Malaise ENT/Mouth: No Hearing Changes, No Ear Pain, No Nasal Congestion, No Sinus Pa in, No Hoarseness, No sore throat, No Rhinorrhea, No Swallowing Difficulty Eyes: No Eye Pain, No Swelling, No Redness, No Foreign Body, No Discharge, No Vision Changes Cardiovascular: No Chest Pain, No SOB, No PND, No Dyspnea on Exertion, No Orthopnea, No Claudication, No Edema, No Palpitations Respiratory: No Cough, No Sputum, No Wheezing, No Smoke Exposure, No Dyspnea Gastrointestinal: No Nausea, No Vomiting, No Diarrhea, No Constipation, No Pain, No Heartburn, No Anorexia, No Dysphagia, No Hematochezia, No Melena, No Flatulence, No Jaundice Genitourinary: No Dysmenorrhea, No DUB, No Dyspareunia, No Dysuria, No Urinary Frequency, No Hematuria, No Urinary Incontinence, No Urgency, No Flank Pain, No Urinary Flow Changes, No Hesitancy Musculoskeletal: No Arthralgias, No Myalgias, No Joint Swelling, No Joint Stiffness, No Back Pain, No Neck Pain, No Injury History Skin: No Skin Lesions, No Pruritis, No Hair Changes, No Breast/Skin Changes, No Nipple Discharge Neuro: No Weakness, No Numbness, No Paresthesias, No Loss of Consciousness, No Syncope, No Dizziness, No Headache, No Coordination Changes, No Recent Falls Psych: No Anxiety/Panic, No Depression, No Insomnia, No Personality Changes, No Delusions, No Rumination, No SI/HI/AH/VH, No Social Issues, No Memory Changes, No Violence/Abuse Hx., No Eating Concerns Heme/Lymph: No Bruising, No Bleeding, No Transfusions History, No Lymphadenopathy Endocrine: No Polyuria, No Polydipsia, No Temperature Intolerance Physical exam (Primary Care) Vital Signs: Last Vital Signs Temp 97.3 F 01/07/25 15:06 Pulse 62 01/07/25 15:06 Resp 18 01/07/25 15:06 BP 118/66 01/07/25 15:06 Pulse Ox 97 01/07/25 15:06 Oxygen Delivery Method Room Air 01/07/25 15:06 BMI result Body Mass Index 29.8 Tobacco/Smoking Status: Tobacco use Status Tobacco use date assessed 01/07/25 01/07/25 15:14 Patient Tobacco Use Status Current everyday Tobacco 01/07/25 15:14 Tobacco use type Cigarette 01/07/25 15:14 e-Cigarette/Vaping Use Never Used 01/07/25 15:14 Thrive Assessment: Date of Thrive Assessment Date Thrive assessed 10/22/24 01/07/25 15:14 Currently or been in a relationship where the following occur: No concerns reported Const Other: Pertinent findings are in BOLD GENERAL APPEARANCE NAD, activity normal for age, well developed/ well nourished, no cyanosis, pallor, or diaphoresis. EYES lids/conjunctiva normal. EARS/NOSE/THROAT Mucous membranes moist, nares normal, lips/teeth normal uvula midline without oral pharyngeal erythema, exudate or swelling TMs normal bilaterally. No lymphangitis/lymphedema. HEAD/NECK normocephalic atraumatic, no facial trauma, neck is supple. RESPIRATORY respiratory effort normal, speaks in full sentences, no tripod position, no accessory muscle use. Lungs clear to auscultation without rhonchi, wheezes, rales CARDIAC Regular rate and rhythm, no edema. ABDOMINAL Soft, ND/NT. No evidence of fluid wave. No pulsatile masses on exam, rebound tenderness, Severino sign or pain over Mcburney's point. MUSCLES/EXTREMITIES No abnormal range of motion, no swelling. SKIN Warm, pink and dry. No rashes, dermatoses, petechiae or lesions. NEUROLOGICAL Speech is clear and appropriate. Normal level of consciousness. Gait and coordination are normal. 5/5 strength in all extremities. PSYCH Normal mood and affect. Judgement/competence is appropriate Coding Level of Care Code Est Pt Level 3 (47682) Diagnoses Head trauma S09.90XA Blackout R55 Time Spent (min) 20 Assessment & Plan Assessment & Plan (1) Head trauma: Code(s): S09.90XA - Unspecified injury of head, initial encounter Category: Medical Plan: - Plan to obtain a CT scan of the head to rule out any intracranial injury due to the fall. (2) Blackout: Code(s): R55 - Syncope and collapse Category: Medical Plan: - Recommend a Holter monitor for seven days to assess cardiac rhythm and rule out cardiac causes of syncope. - Advise monitoring for any changes in memory or confusion, with instructions to seek emergency care if such symptoms occur. - Most likely vasovagal. Plan I discussed with the patient the likelihood of vasovagal syncope as the cause of his blackout episode, emphasizing that it is generally benign. We agreed on the need for a CT scan of the head and a Holter monitor to rule out other potential causes. I advised him to monitor for any changes in his condition and to seek emergency care if necessary. Orders: Orders ECG 7 day holter monitor Today R55 - Syncope and collapse CT head/brain wo IV con Today S09.90XA - Unspecified injury of head, initial encounter
== END 2025-01-07 15:39 | disposition home or self-care (01) ==
LOC: HO.HMCH 14:53
PROVIDERS: PCP Internal Medicine; Visit Provider Internal Medicine
DX: S09.90XA Unspecified injury of head, initial encounter (principal); R55 Syncope and collapse

== ENCOUNTER → 2025-01-07 14:52 | Outpatient (BNVA) | payer OTHER, SELFPAY | PROVIDERS: PCP Internal Medicine; Visit Provider Internal Medicine | DX: S09.90XA Unspecified injury of head, initial encounter (principal); R55 Syncope and collapse | CPT/HCPCS: 99212 ==

== ENCOUNTER 2025-01-20 08:18 | Emergency (ER) | payer OTHER, SELFPAY ==
--- NOTE | ~2025-01-20 | CT_ITS ---
EXAMINATION: CT ABDOMEN PELVIS WITHOUT IV CONTRAST HISTORY: rule out stone left flank pain, hx of stones COMPARISON: Previous CT of the abdomen and pelvis most recent July 2024 TECHNIQUE: CT scan of the abdomen and pelvis was performed without contrast using standard departmental protocol. Coronal and sagittal reformatted images were generated and reviewed. This CT exam was performed with one or more of the following dose reduction techniques: automated exposure control, adjustment of the mA and/or kV according to patient size, use of iterative reconstruction technique. DLP: 675 mGy-cm FINDINGS: LOWER CHEST: The visualized lung bases are clear. There is no pleural effusion. CARDIOVASCULATURE: The heart is normal in size. There is no pericardial effusion. LIVER: The liver is normal in size and contour. The liver has an unremarkable unenhanced appearance. GALLBLADDER / BILE DUCTS: The gallbladder is unremarkable. There is no intra or extrahepatic biliary ductal dilatation. SPLEEN: The spleen is normal in size and has an unremarkable unenhanced appearance. PANCREAS: The pancreas has an unremarkable unenhanced appearance. ADRENAL GLANDS: Unremarkable. KIDNEYS/RETROPERITONEUM: Mild left hydronephrosis and ureteral dilatation from a 3 x 5 mm left UVJ or bladder stone. No left renal stone. Normal right kidney. LYMPH NODES: No retroperitoneal lymphadenopathy is identified in the abdomen or pelvis. VASCULATURE: The abdominal aorta is normal in caliber. MESENTERY/PERITONEUM: No free fluid. No masses. There is no free intraperitoneal gas. STOMACH: Normal SMALL BOWEL: The small bowel is normal in caliber. COLON: The colon is unremarkable. APPENDIX: Normal. URINARY BLADDER/PELVIC ORGANS: 3 x 5 mm left UVJ or bladder stone. Bladder not optimally distended. Slightly enlarged prostate gland measuring 5 x 5.4 cm BONES / SOFT TISSUES: No suspicious bony or soft tissue abnormalities. Mild degenerative changes of the spine. CT/CT abdomen pelvis wo IV con IMPRESSION: Mild left hydronephrosis and ureteral dilatation from a 3 x 5 mm left UVJ or bladder stone. Electronically signed by: Francisca Varghese MD 01/20/2025 09:40 AM EDT
--- NOTE | 2025-01-20 08:24 | ED.ABDPAIN ---
HPI - Abdominal Pain General Chief Complaint: General Medical Stated Complaint: L ABD PAIN SINCE LAST NIGHT,DIFF URINE,?STONE Time Seen by Provider: 01/20/25 08:23 Source: patient Mode of arrival: ambulatory Limitations: no limitations History of Present Illness ED Provider: Ivania Tapia PA-C HPI narrative: 54-year-old male presenting to the emergency department today for evaluation of left-sided flank pain with urinary symptoms. Past medical history significant for ETOH abuse, asthma, hypertension, DM type 2, GERD, KADEN, tobacco use, HLD and obesity. Patient has had a history of 2 kidney stones in the past that passed on their own without any surgical intervention. It is unclear when this occurred. Starting yesterday patient had a dull left-sided flank pain which he did not pay much attention to in towards the end of the evening it came in waves of severity associated with urinary urgency and retention. This morning the pain got so severe despite any type of changes in position that he came to the emergency department. He has also had 2 episodes of vomiting to the severity of pain according to him. He does report a small slip and fall 3 weeks ago that did not result in any pain or head trauma. He is denying any diarrhea or abdominal distention. He has no urethral discharge or pain/swelling in his testicles or concerns for STIs. No fevers no chills and no respiratory symptoms. He has not done anything for pain. He can not find a position that is comfortable. He denies any history abdominal surgeries he reports a slight decrease in monitor intake and feels like his mouth is dry. Chart reviewed: left ureter stone seen in ED July 2024: CT scan showed 5 mm moderate hydro. Sent home with flomax and pain control, passed on own. Related Data Previous Rx's ?Medication ?Instructions ?Recorded atorvastatin 10 mg tablet 10 mg PO DAILY #30 tabs 09/19/23 fexofenadine 180 mg tablet 180 mg PO DAILY #30 tabs 02/20/24 ([facility]ee Allergy) cyclobenzaprine 5 mg tablet 5 mg PO BEDTIME #10 tabs 04/05/24 lidocaine 5 % topical patch 1 patch topical DAILY #30 ea 04/05/24 blood sugar diagnostic (OneTouch #100 ea 06/01/24 Ultra Test strips) blood-glucose meter (OneTouch #1 ea 06/01/24 Ultra2 Meter) lancets 30 gauge (OneTouch #200 ea 06/01/24 UltraSoft 2 Lancet) ketorolac 10 mg tablet 10 mg PO Q6H PRN pain #20 tabs 08/10/24 ondansetron HCl 4 mg tablet 4 mg PO Q8H PRN nausea and 08/10/24 vomiting #10 tabs tamsulosin 0.4 mg capsule (Flomax) 0.4 mg PO DAILY #7 caps 08/10/24 lisinopril 20 mg tablet 20 mg PO DAILY #30 tabs 08/25/24 fluticasone 250 mcg-salmeterol 50 1 ea inhalation BID #60 ea 10/12/24 mcg/dose blistr powdr for inhalation (Advair Diskus) albuterol sulfate 90 mcg/actuation 2 inh inhalation Q4-6H PRN 10/22/24 breath activated powder shortness of breath or wheezing #1 inhaler,sensor (Proair Digihaler) ea ondansetron HCl 4 mg tablet 4 mg PO Q8H PRN nausea and 01/20/25 vomiting #10 tabs oxycodone-acetaminophen 5 mg-325 1 tab PO Q8H PRN severe pain 01/20/25 mg tablet (scale score 7-10) #10 tabs tamsulosin 0.4 mg capsule (Flomax) 0.4 mg PO DAILY 7 days #7 caps 01/20/25 Allergies Allergy/AdvReac Type Severity Reaction Status Date / Time seafood Allergy Severe Hives Verified 01/20/25 08:29 pollen extracts (POLLEN) Allergy Unknown UNKNOWN Verified 01/20/25 08:29 seasonal allergies Allergy Unknown Unknown Uncoded 01/20/25 08:29 Review of Systems Review of Systems Yes all other systems are reviewed and are negative [facility] Past Medical History Attestation statement: The following information was validated with the patient. [facility] Narrative: left ureter stone seen in ED july 2024: CT scan showed 5 mm moderate hydro. Sent home with flomax and pain control, passed on own. Source: old records reviewed and nursing notes reviewed Medical History DMII (diabetes mellitus, type 2) History of renal calculi Obstructive sleep apnea Fatty liver Vitamin D deficiency Obesity (BMI 30-39.9) Mood disorder Asthma Hypercholesterolemia Alcohol abuse Tobacco abuse Surgical History History of removal of cyst History of tonsillectomy Family History Family History Father CAD (coronary artery disease) CVD (cardiovascular disease) Hypertension Mother Hypertension Maternal Grandfather Colon cancer Maternal Uncle Myocardial infarction Social History Social History Household Members: Spouse and Children Housing: House Do you presently have visiting nurse or other home services: No Alcohol intake: current Alcohol intake frequency: a few times a month Alcohol type: beer and hard liquor Comment: once a week 7-8 beers - discussed about stopping Patient Tobacco Use Status: Current everyday Tobacco user Tobacco use type: Cigarette Cigarette Packs Per Day: 0.25 Cigarettes Per Day: 5 Years Smoked: 30 Smoked in Last 30 Days: No e-Cigarette/Vaping Use: Never Used Second Hand Smoke Exposure: Yes Use of substances other than those prescribed or required for medical reasons: No Substance Use Type: Marijuana Advance Directives: No Advance Directives Information Provided: Yes Do you have a plan to hurt others: No Plan service: No Current occupational status: employed Sexual orientation: Straight/Heterosexual Cognitive needs: No Hearing needs: No Vision needs: No Physical Exam ED Exam Exam: General: Appears in mod painful but not respiratory distress (holding side rolling side to side in stretcher), appears well nourished body habitus is obese, appears stated age. No septic or ill-appearing. Vitals reviewed normal, PMH/Social and Surgical hx reviewed including allergies and current medications. - reviewed for prior visits here and read as it pertains to similar CC. Head: Normocephalic, no obvious trauma or skin lesions noted. Eyes: EOMI, no scleral icterus ENMT: Dry oral mucosa uvula is midline no lesions Neck: trachea midline no lymphadenopathy Cardiovascular: peripheral perfusion normal, Regular heart rate regular rhythm Respiratory: no respiratory distress lungs clear chest wall nontender Abdomen: Obese abdomen nontender and serious side left-sided flank tenderness but not in the CVA region, no guarding no rebound tenderness suprapubic pressure noted Extremities: warm and moving without difficulty . Psych: Cooperative breath-holding speaking through pain Neuro: Alert and oriented. Vital Signs: Vital Signs - 24 hr 01/20/25 08:27 01/20/25 08:39 01/20/25 09:42 Temperature 97.9 F Pulse Rate 63 54 Respiratory Rate 20 25 H 18 Blood Pressure 170/90 H 159/80 H Pulse Oximetry 97 96 Oxygen Delivery Method Room Air Room Air BMI result Body Mass Index 32.4 Medical Decision Making Medical Decision Making MDM Narrative: 54-year-old male with past medical history significant for hypertension, KADEN asthma diabetes type 2 and ureteral stones presenting to emergency department today with 1 day onset of left-sided flank pain with urinary changes. He does not appear septic or toxic. Upon arrival to ED he appears in moderate pain holding himself [id number] but no respiratory distress. He is hypertensive likely secondary to pain at 170/90 but not tachycardic or tachypneic. He is afebrile saturating 97% on room air his abdomen was obese but nontender he does have some left-sided flank pain. Presentation most suspicious for kidney stone at this time. Other differentials include but are not limited to UTI, musculoskeletal strain, gastroenteritis, and somatic pain. Given appears mildly dehydrated we will initiate 1 L of IV fluids as he has no history of heart failure and does not look fluid overloaded as well as do 0.5 mg of Dilaudid given the morphine shortage and give Zofran. CT scan of the abdomen and pelvis ordered noncontrast. We will continue to monitor and update plan as needed. 902: Mild leukocytosis at 11.1 with no left shift. Point of care glucose 184. DKA and HHS deemed very unlikely. Urinalysis shows a moderate amount of blood with no leukocytes or nitrites, CMP pending, CT pending. 945: pain still present but not as severe, BP improved 158/80, HR 55, will order toradol for pain control. CMP: NO SOFYA, mild transamnitis, AST 40, ALT 59 likely NAFLD, no pancreatitis. CT pending. 951: Mild left hydronephrosis and ureteral dilatation from a 3x5 mm Left UVJ or bladder stone. normal right. Patient's patient's clinical presentation I do feel we could trial outpatient management with Flomax and pain control with Urology follow up outpatient but we will defer definitive recommendations to urologist Dr. Pruitt consulted. Dr Pruitt agrees with plan. Discussed disease process complications and therapeutic interventions with the patient along with follow up and ER precautions. He demonstrated verbal understanding of the plan and agreed he was discharged home stable. Differential Diagnosis Differential Diagnoses: The differential diagnosis associated with the presentation includes See MDM Admission/Observation Consideration of admission/observation: Escalation of care including admission/observation considered Consult Healthcare Provider Management of the patient was discussed with: Auto Service Representative Lab Data MDM Lab Attestation statement: I reviewed the patient's lab results. 01/20/25 08:40 01/20/25 08:40 Labs: Lab Results 01/20/25 01/20/25 01/20/25 Range/Units 08:24 08:40 08:41 WBC 11.1 H (4.8-10.8) X10*3/uL RBC 5.58 (4.60-5.80) X10*6/uL Hgb 16.6 (14.0-18.0) g/dl Hct 46.6 (42.0-52.0) % MCV 83.5 (80.0-98.0) fL MCH 29.7 (27.0-33.0) pg MCHC 35.6 (31.0-36.0) g/dl RDW 12.5 (11.0-16.0) % Plt Count 233 (160-400) X10*3/uL MPV 10.3 (9.4-12.4) fL Immature Gran % (Auto) 0.5 H (0.0-0.4) % Neut % (Auto) 61.3 (45-73) % Lymph % (Auto) 24.1 (20-40) % [place] % (Auto) 10.3 (2-11) % Eos % (Auto) 3.3 (0-4) % Baso % (Auto) 0.5 (0-2) % Lymph # (Auto) 2.7 (1.2-4.9) X10*3/uL [place] # (Auto) 1.1 (0.1-1.2) X10*3/uL Eos # (Auto) 0.4 (0.0-0.4) X10*3/uL Baso # (Auto) 0.1 (0.0-0.2) X10*3/uL Abs Immat Gran (auto) 0.05 H (0.00-0.03) X10*3/uL Absolute Neuts (auto) 6.8 (2.0-8.3) x10*3/uL Absolute Nucleated RBC 0.000 (0.0-0.012) X10*3/uL Nucleated RBC % (auto) 0.0 (0.0-0.2) /100WBC Sodium 141 (135-145) mmol/L Potassium 4.5 (3.3-5.1) mmol/L Chloride 111 H (96-108) mmol/L Carbon Dioxide 22 (22-29) mmol/L Anion Gap 13 (12-20) BUN 16 (9-16) mg/dL Creatinine 0.98 (0.5-1.4) mg/dL Estim Creat Clear Calc 97.1 Estimated GFR > 60 POC Glucose 184 H (60-115) mg/dL Random Glucose 179 H (60-115) mg/dL Calcium 9.7 (8.4-10.2) mg/dL Magnesium 2.2 (1.6-2.6) mg/dL Total Bilirubin 0.8 (0.0-1.0) mg/dL AST 40 H (5-37) U/L ALT 59 H (0-40) U/L Alkaline Phosphatase 90 (39-117) U/L Total Protein 8.1 H (6.5-8.0) g/dL Albumin 4.5 (3.5-5.0) g/dL Lipase 33 (8-78) U/L Urine Color Dark Yellow Urine Appearance Clear Urine pH 5.0 (5.0-9.0) Ur Specific [place] >= 1.030 H (1.005-1.025) Urine Protein 30 (1+) H (Neg-Trace) mg/dL Urine Glucose (UA) Negative (Negative) mg/dL Urine Ketones Trace (Negative) mg/dL Urine Blood Moderate (2+) H (Negative) Urine Nitrite Negative (Negative) Ur Leukocyte Esterase Negative (Negative) Urine RBC 11-20 H (0-2) /HPF Urine WBC 0-5 (0-5) /HPF Ur Squamous Epith Cells 0-2 (0-2) /HPF Urine Bacteria None Seen (None Seen) Hyaline Casts 3-5 (0-2) /LPF Independent Interpretation I performed an independent interpretation of an: CT Scan Interpretation: hydro mild left Radiology Impression Discussion of test interpretation with radiology: I have reviewed the radiologist's reading. Radiologist Impression: IMPRESSION: Mild left hydronephrosis and ureteral dilatation from a 3 x 5 mm left UVJ or bladder stone. Tests considered The following testing was considered but not selected: Would have considered CT with contrast had other intraabdominal pathology been higher on clinical suspicion Prescription Management I considered prescription management with: Pain Medication and Antibiotic Chronic Conditions Patient?s care impacted by: Diabetes, Hypertension and Other (obesity) Social Determinants Patient?s care significantly limited by Social Determinants of Health including: Other Social Determinant of Health Medications Administered Discontinued Medications Generic Name Dose Route Start Last Admin Trade Name Freq PRN Reason Stop Dose Admin Hydromorphone HCl 0.5 mg 01/20/25 08:25 01/20/25 08:39 Hydromorphone Hcl 0.5 Mg/0.5 Ml Syringe IVPUSH 01/20/25 08:26 0.5 mg ONCE ONE Administration Protocol Sodium Chloride 1,000 mls @ 999 mls/hr 01/20/25 08:25 01/20/25 08:39 Ns IV 01/20/25 09:25 999 mls/hr .Q1H1M ONE Administration Ketorolac Tromethamine 15 mg 01/20/25 09:44 01/20/25 09:49 Ketorolac Tromethamine 15 Mg/Ml Vial IVPUSH 01/20/25 09:45 15 mg ONCE ONE Administration Ondansetron HCl 4 mg 01/20/25 08:25 01/20/25 08:39 Ondansetron Hcl 4 Mg/2 Ml Vial IVPUSH 01/20/25 08:26 4 mg ONCE ONE Administration Critical Care Time Critical Care Time Critical Care Time: Yes Total Critical Care Time: 40 Attestation: This patient required critical care. Due to the fact that the patient required a significant amount of one on one physician ? patient contact time, ordering and review of studies, arranging urgent treatment with development of a management plan, evaluation of patient?s response to treatment with frequent reassessments, and discussions with other providers this patient required critical care time in excess of 30 minutes. Critical care time was indicated due to the inherent instability and/or potential for instability in this patient. The critical care time that is allocated to this patient is above and beyond any time spent on any other billable procedures performed on this patient. Discharge Plan Discharge Clinical Impression: Left ureteral calculus Patient Disposition: Home, Self-Care Instructions: Ureteral Stones (ED) Additional Instructions: You were seen and evaluated in the ER for your flank pain. You had blood work and a urine test done. Your CT Scan demonstrated you have a ureteral stone that looks close to passing into bladder. You should take Ibuprofen 600mg orally every 6 hours for pain. Take this medication with food, as it can cause stomach irritation.? Take the oxycodone- tylenol as needed for severe pain. Do not drink alcohol or drive while taking this medication. Take this medication as prescribed, as this can be an addictive medication.? Use the zofran as needed for nausea/vomiting. Drink plenty of fluids. Strain your urine as shown. Follow up with the Urologist. If you develop any uncontrolled or worsening pain, fevers, intractable vomiting, or any other new, concerning symptoms please return to the ER immediately Prescriptions: New tamsulosin [Flomax] 0.4 mg capsule 0.4 mg PO DAILY 7 Days Qty: 7 0RF ondansetron HCl 4 mg tablet 4 mg PO Q8H PRN (Reason: nausea and vomiting) Qty: 10 0RF oxycodone-acetaminophen 5-325 mg tablet 1 tab PO Q8H PRN (Reason: severe pain (scale score 7-10)) Qty: 10 0RF Rx Instructions: Partial Fill upon patient request. No Action atorvastatin 10 mg tablet 10 mg PO DAILY Qty: 30 1RF (DME) blood-glucose meter [OneTouch Ultra2 Meter] Misc See Rx Instructions .Route Qty: 1 0RF Rx Instructions: As directed ([facility]) OneTouch Ultra Test Strip See Rx Instructions .ROUTE .MEDSUPPLY Qty: 100 3RF Rx Instructions: As directed check the blood sugar once a day (DME) lancets [OneTouch UltraSoft 2 Lancet] 30 gauge misc See Rx Instructions .Route Qty: 200 3RF Rx Instructions: As directed lisinopril 20 mg tablet 20 mg PO DAILY Qty: 30 1RF fluticasone propion-salmeterol [Advair Diskus] 250-50 mcg/dose blister with device 1 ea INHALATION BID Qty: 60 11RF tamsulosin [Flomax] 0.4 mg capsule 0.4 mg PO DAILY Qty: 7 0RF ondansetron HCl 4 mg tablet 4 mg PO Q8H PRN (Reason: nausea and vomiting) Qty: 10 0RF ketorolac 10 mg tablet 10 mg PO Q6H PRN (Reason: pain) Qty: 20 0RF Rx Instructions: maximum total duration of 5 days from all oral, intranasal, or parenteral formulations. The patient received an intramuscular dose of Toradol here in the emergency department fexofenadine [Deedee Allergy] 180 mg tablet 180 mg PO DAILY Qty: 30 4RF cyclobenzaprine 5 mg tablet 5 mg PO BEDTIME Qty: 10 0RF lidocaine 5 % adhesive patch,medicated 1 patch topical DAILY Qty: 30 0RF Rx Instructions: leave on most painful area for up to 12 hrs Proair Digihaler 90 mcg/actuation aero powdr breath act w/sensor 2 inh inhalation Q4-6H PRN (Reason: shortness of breath or wheezing) Qty: 1 0RF Referrals: [facility] [place] [Provider Group, Urology] Referral Note: ureteral stone Clinical Impression: Left ureteral calculus Stand Alone Forms: Work/School Release Print Language: Turkmen
[2025-01-20 08:27] VITALS: BP 170/90; PULSE 63; RESP 20; TEMP 36.6; O2SAT 97; BMI 32.4
[2025-01-20 08:28] LABS: Glucose, Whole Blood 184 mg/dL (60-115)
[2025-01-20 08:39] VITALS: RESP 25
[2025-01-20 08:46] LABS: MANUAL DIFF FLAG NO
[2025-01-20 08:49] LABS: Appearance Urine Clear; Glucose Urine UA Negative (Negative); PH 5.0 (5.0-9.0); Specific Gravity - Urine >= 1.030 (1.005-1.025); UMIC TRIGGER UACC YES
[2025-01-20 08:50] LABS: Hematocrit 46.6 % (42.0-52.0); Hemoglobin 16.6 g/dl (14.0-18.0); Imm Gran Abs Auto 0.05 X10*3/uL (0.00-0.03); Imm Gran Pct Auto 0.5 % (0.0-0.4); Lymphocytes Absolute Auto 2.7 X10*3/uL (1.2-4.9); Mean Corpuscular HGB Conc 35.6 g/dl (31.0-36.0); Mean Corpuscular Hemoglobin 29.7 pg (27.0-33.0); Mean Corpuscular Volume 83.5 fL (80.0-98.0); NRBC Abs Auto 0.000 X10*3/uL (0.0-0.012); NRBC Pct Auto 0.0 /100WBC (0.0-0.2); Platelet Count 233 X10*3/uL (160-400); Red Blood Count 5.58 X10*6/uL (4.60-5.80); White Blood Count 11.1 X10*3/uL (4.8-10.8)
[2025-01-20 09:02] VITALS: BP 160/100; PULSE 64; O2SAT 95
[2025-01-20 09:04] LABS: Albumin Level 4.5 g/dL (3.5-5.0); Alkaline Phosphatase 90 U/L (39-117); Anion Gap 13 (12-20); Aspartate Amino Transferase 40 U/L (5-37); Blood Urea Nitrogen 16 mg/dL (9-16); Calcium 9.7 mg/dL (8.4-10.2); Carbon Dioxide 22 mmol/L (22-29); Chloride 111 mmol/L (96-108); Creatinine Clr Calc Pharmacy 97.1; Estimated Glomerular Filt Rate > 60; Lipase 33 U/L (8-78); Magnesium 2.2 mg/dL (1.6-2.6); Potassium 4.5 mmol/L (3.3-5.1); Sodium 141 mmol/L (135-145); Total Protein 8.1 g/dL (6.5-8.0)
[2025-01-20 09:15] LABS: Alanine Aminotransferase 59 U/L (0-40)
[2025-01-20 09:42] VITALS: BP 159/80; PULSE 54; RESP 18; O2SAT 96
--- OUTSIDE RECORDS SUMMARY | 2025-01-20 10:07 | XMS_ITS | Clinical Summary ---
Author Organization [facility] Address [address] [place] [address] Care Team Providers Care Dumpster Operator Name Role Phone Ed Agarwal MD Primary Care Provider [phone] Allergies Active Allergy Reactions Criticality Noted Date [...] 50+ (1 of 1 - PCV) 2020 RSV Vaccine 50 years and old er and Patients (1 - Risk 50-74 years 1-dose series) 2020 Zoster (Shingles) Vaccine (1 of 2) 2020 Influenza Vaccine 10/29/2024 COVID-19 Vaccine ( - 2023- season) 2024 Insurance [facility] Advance Directives * Full Code (Latest Code Status on File) Date Activated Date Inactivated Comments 09/28/2022 10:31 PM Care Teams Dumpster Operator Relationship Specialty Start Date End Date Ed Agarwal MD [address] [place] [address] Dr [place], [place] [id number] PCP - General Internal Medicine 09/28/22
[2025-01-20 10:32] VITALS: BP 159/80; PULSE 54; RESP 18; TEMP 36.8; O2SAT 96
== END 2025-01-20 10:33 | disposition home or self-care (01) ==
PROVIDERS: Emergency Provider Emergency Medicine; PCP Internal Medicine
DX: N13.2 Hydronephrosis with renal and ureteral calculous obstruction (principal); E86.0 Dehydration; I10 Essential (primary) hypertension; E11.9 Type 2 diabetes mellitus without complications; Z72.0 Tobacco use; Z87.442 Personal history of urinary calculi
CPT/HCPCS: 36415; 74176; 80053; 81001; 82947; 83690; 83735; 85025; 96361; 96374; 96375; 99284; 99285; J1171; J1885; J2405

== ENCOUNTER → 2025-01-20 08:25 | Outpatient (BNV) | payer OTHER, SELFPAY | PROVIDERS: Emergency Provider Emergency Medicine; PCP Internal Medicine; Visit Provider Radiology Diagnostic Radiology | DX: N13.30 Unspecified hydronephrosis (principal) | CPT/HCPCS: 74176 ==

== ENCOUNTER → 2025-01-27 | Outpatient (BNV) | payer OTHER, SELFPAY | PROVIDERS: Admitting Provider Internal Medicine; Emergency Provider Emergency Medicine; PCP Internal Medicine; Visit Provider Internal Medicine | DX: R00.1 Bradycardia, unspecified (principal); I49.3 Ventricular premature depolarization | CPT/HCPCS: 93010 ==

== ENCOUNTER → 2025-01-28 00:25 | Outpatient (BNV) | payer OTHER, SELFPAY | PROVIDERS: Emergency Provider Emergency Medicine; PCP Internal Medicine; Visit Provider General Practice | DX: S06.9XAA Unspecified intracranial injury with loss of consciousness status unknown, initial encounter (principal); R55 Syncope and collapse; M25.572 Pain in left ankle and joints of left foot; W18.39XA Other fall on same level, initial encounter | CPT/HCPCS: 70450; 72125; 73610; 93880 ==

== ENCOUNTER → 2025-01-28 04:11 | Outpatient (BNV) | payer OTHER, SELFPAY | PROVIDERS: Admitting Provider Internal Medicine; Emergency Provider Emergency Medicine; PCP Internal Medicine; Visit Provider Internal Medicine | DX: R55 Syncope and collapse (principal); R74.01 Elevation of levels of liver transaminase levels; F10.10 Alcohol abuse, uncomplicated | CPT/HCPCS: 99223; 99499 ==

== ENCOUNTER → 2025-01-28 04:11 | Outpatient (BNV) | payer OTHER, SELFPAY | PROVIDERS: Admitting Provider Internal Medicine; Emergency Provider Emergency Medicine; PCP Internal Medicine; Visit Provider Internal Medicine | DX: R55 Syncope and collapse (principal); F10.10 Alcohol abuse, uncomplicated | CPT/HCPCS: 99233 ==

== ENCOUNTER 2025-02-04 09:17 | Outpatient (AMB) | payer OTHER, SELFPAY ==
--- NOTE | 2025-02-04 09:20 | A.OFFPC_ITS ---
Vital Signs 02/04/25 09:21 Height 5 ft 8 in Weight 214 lb 2 oz BMI 32.6 BP 130/80 Blood Pressure Location Lt brachial Position Sitting Pulse 63 Pulse Source Pulse Oximeter Temp 97.3 F Temp Source Temporal Artery Scan Pulse Oximetry (%) 94 Oxygen Delivery Method Room Air Intake Visit Reasons: [facility] 01/29 Intake Note: Patient is here for hospital discharge follow up. Patient was discharged from [facility] on 01/29/25. Passenger Service Manager Required: No Manager Research And Development: Not Required per policy Accompanied by: Self / Same As Patient Allergies seafood Allergy (Severe, Verified 02/04/25 09:21) Hives pollen extracts (POLLEN) Allergy (Unknown, Verified 02/04/25 09:21) UNKNOWN seasonal allergies Allergy (Unknown, Uncoded 02/04/25 09:21) Unknown Tobacco use date assessed: 02/04/25 Dental Screening Dental Screen Date: 01/07/25 HPI HPI Comments History of Present Illness Details 54 y/o male patient presents to the [facility] today for HDF. Past medical history significant for asthma, essential hypertension, type 2 diabetes mellitus, and hyperlipidemia. He was admitted to [facility] from 01/28?01/29 for evaluation after an episode of loss of consciousness resulting in a fall while walking to the bathroom. Patient reports a similar syncopal episode approximately two weeks prior, which occurred while he was sitting. He smokes marijuana and tobacco (6 cigarettes daily) since adolescence. He also has a history of alcohol use (2?3 beers daily) but reports that he has quit drinking. During hospitalization, he was evaluated by Cardiology, who arranged for an outpatient 30-day event monitor and follow-up appointment scheduled for 02/11/25. [facility] Medical History DMII (diabetes mellitus, type 2) History of renal calculi Obstructive sleep apnea Fatty liver Vitamin D deficiency Obesity (BMI 30-39.9) Mood disorder Asthma Hypercholesterolemia Alcohol abuse Tobacco abuse Surgical History History of removal of cyst History of tonsillectomy Family History Father CAD (coronary artery disease) CVD (cardiovascular disease) Hypertension Mother Hypertension Maternal Grandfather Colon cancer Maternal Uncle Myocardial infarction Social History Household Members: Spouse and Children Housing: House Do you presently have visiting nurse or other home services: No Alcohol intake: current Alcohol intake frequency: a few times a month Alcohol type: beer Comment: once a week 7-8 beers - discussed about stopping Patient Tobacco Use Status: Current everyday Tobacco user Tobacco use type: Cigarette Cigarette Packs Per Day: 0.25 Cigarettes Per Day: 5 Years Smoked: 30 Packs Per Year: 8 Packs per year/per ci.50 e-Cigarette/Vaping Use: Never Used Second Hand Smoke Exposure: Yes Substance Use Type: Marijuana Advance Directives Date on File: 01/07/25 service: No Current occupational status: employed Sexual orientation: Straight/Heterosexual Cognitive needs: No Hearing needs: No Vision needs: No Questionnaire Thrive Questionnaire Date Thrive assessed: 10/22/24 I am a: Patient What is your living situation today?: I have a steady place to live Within the past 12 months, did the food you bought not last and you didn't have the money to get more?: Never true Within the past 12 months, did you worry whether your food would run out before you got money to buy more?: Never true Do you have trouble paying for medicines?: No Do you have trouble getting transportation to medical appointments?: No Do you have trouble paying your heating and electricity bill?: No Do you have trouble taking care of your child, family member or friend?: No Do you have trouble with day-to-day activities such as bathing, preparing meals, shopping, managing finances, etc.?: No Are you currently unemployed and looking for a job?: No Are you interested in more education?: No Please select the resources that you would like help with: None Currently or been in a relationship where the following occur: No concerns reported THRIVE Score: 0 SIMON-7 AMB Questionnaire SIMON-7 Date SIMON - 7 assessed: 10/22/24 Source: Developed by Drs. Raffi Leung, Maria Esther Finney, Fam Camilo and colleagues, with an educational sawyer from [employer] Review of Systems Const All systems reviewed & are unremarkable except as noted in HPI and below Physical exam (Primary Care) Vital Signs: Last Vital Signs Temp 97.3 F 02/04/25 09:21 Pulse 63 02/04/25 09:21 BP 130/80 02/04/25 09:21 Pulse Ox 94 02/04/25 09:21 Oxygen Delivery Method Room Air 02/04/25 09:21 BMI result Body Mass Index 32.6 Tobacco/Smoking Status: Tobacco use Status Tobacco use date assessed 02/04/25 02/04/25 09:26 Patient Tobacco Use Status Current everyday Tobacco 02/04/25 09:26 Tobacco use type Cigarette 02/04/25 09:26 e-Cigarette/Vaping Use Never Used 02/04/25 09:26 Thrive Assessment: Date of Thrive Assessment Date Thrive assessed 10/22/24 02/04/25 09:26 Currently or been in a relationship where the following occur: No concerns reported Const General: no acute distress Nutritional Appearance: obese Orientation/consciousness: patient oriented x3 Resp Effort & Inspection: normal respiratory effort Auscultation: clear to auscultation bilaterally Cardio Heart sounds: S1 normal heart sound present and S2 normal heart sound present Neuro General: patient oriented x3 Coding Level of Care Code Est Pt Level 4 (00083) Diagnoses Alcohol abuse F10.10 Time Spent (min) 20 Assessment & Plan Assessment & Plan (1) Alcohol abuse: Code(s): F10.10 - Alcohol abuse, uncomplicated Category: Social Hx Plan: Syncope ? recurrent episodes, unclear etiology. Possibly related to cardiac, orthostatic, or substance-related causes. Pending further evaluation with event monitor by Cardiology. Alcohol use disorder ? reports cessation, monitor for relapse. Continue current medications as prescribed. Reinforce fall precautions and advise patient to sit or lie down if feeling dizzy or lightheaded. Encourage adequate hydration and slow positional changes. Continue with Cardiology follow-up on 02/11/25 and complete 30-day event monitor as planned. Smoking cessation counseling provided; discussed risks and benefits of quitting. Monitor blood pressure and glucose at home.
[2025-02-04 09:21] VITALS: BP 130/80; PULSE 63; TEMP 36.3; O2SAT 94; BMI 32.6
--- OUTSIDE RECORDS SUMMARY | 2025-02-04 10:28 | XMS_ITS | Clinical Summary ---
Author Organization [facility] Address [address] [place] [address] Care Team Providers Care Websphere Commerce Architect Name Role Phone Ed Agarwal MD Primary Care Provider [phone] Allergies Active Allergy Reactions Criticality Noted Date Comments Shellfish Protein-Containing Drug Products Hives Medi um 09/29/2022 Medications amoxicillin-cla vulanate (AUGMENTIN) 875-125 MG per [...] Vaccine ( - 2023- season) 2024 Insurance [facility] Advance Directives * Full Code (Latest Code Status on File) Date Activated Date Inactivated Comments 09/28/2022 10:31 PM Care Teams Websphere Commerce Architect Relationship Specialty Start Date End Date Ed Agarwal MD [address] [place], [place] [address] PCP - General Internal Medicine 09/28/22
== END 2025-02-04 09:55 | disposition home or self-care (01) ==
LOC: HO.HMCH 09:18
PROVIDERS: PCP Internal Medicine; Visit Provider Nurse Practitioner Family
DX: F10.10 Alcohol abuse, uncomplicated (principal)

== ENCOUNTER → 2025-02-04 09:17 | Outpatient (BNVA) | payer OTHER, SELFPAY | PROVIDERS: PCP Internal Medicine; Visit Provider Nurse Practitioner Family | DX: I10 Essential (primary) hypertension (principal); J45.909 Unspecified asthma, uncomplicated; E11.9 Type 2 diabetes mellitus without complications; E78.5 Hyperlipidemia, unspecified; F10.11 Alcohol abuse, in remission; F17.210 Nicotine dependence, cigarettes, uncomplicated | CPT/HCPCS: 99212 ==

== ENCOUNTER 2025-02-18 09:45 | Outpatient (AMB) | payer OTHER, SELFPAY ==
[2025-02-18 09:48] VITALS: BP 124/86; PULSE 66; TEMP 36.3; O2SAT 96; BMI 32.6
--- NOTE | 2025-02-18 09:48 | A.OFFPC_ITS ---
Vital Signs 02/18/25 09:48 Height 5 ft 8 in Weight 214 lb 4 oz BMI 32.6 BP 124/86 Blood Pressure Location Lt brachial Position Sitting Pulse 66 Pulse Source Pulse Oximeter Temp 97.3 F Temp Source Temporal Artery Scan Pulse Oximetry (%) 96 Oxygen Delivery Method Room Air Intake Visit Reasons: DM Allergies seafood Allergy (Severe, Verified 02/18/25 09:51) Hives pollen extracts (POLLEN) Allergy (Unknown, Verified 02/18/25 09:51) UNKNOWN seasonal allergies Allergy (Unknown, Uncoded 02/18/25 09:51) Unknown Medication List - Last Reconciled 02/18/25 by Ed Agarwal MD albuterol sulfate 90 mcg/actuation (Ventolin HFA) 2 puffs inhalation Q6H PRN blood sugar diagnostic ([facility] Ultra Test strips) As directed check the blood sugar once a day blood-glucose meter ([facility] Ultra2 Meter) As directed fluticasone propion-salmeterol 250-50 mcg/dose (Advair Diskus) 1 ea inhalation BID folic acid 1 mg PO DAILY 30 days lancets (VenitiTouch UltraSoft 2 Lancet) As directed thiamine mononitrate (vit B1) 100 mg PO DAILY 30 days Tobacco use date assessed: 02/18/25 Dental Screening Dental Screen Date: 02/18/25 Did you have a dental visit in the last 12 months?: Yes Did you have a dental problem in the last 6 months where you did not have access to dental care?: No Was dental information given to patient?: Patient has dentist HPI DM HPI Details Patient has been drinking alcohol and smoked marijuana then nausea and could not get in air. the other on had cough and passed out also. event monitor pending. HPI Comments History of Present Illness Details History of Present Illness The patient is a 54 year old individual presenting for follow-up regarding two recent syncopal episodes, with the first occurring two weeks prior to the visit. The patient reported that prior to the first episode, the patient had consumed four beers and smoked two marijuana joints, then felt nauseous and started cou ghing while walking to the bathroom, at which point the patient passed out. The second syncopal episode was also preceded by a coughing spell. The patient denies associated chest pain or palpitations with these events. Following a fall associated with syncope, the patient was seen in the ER and has since been followed by cardiology. The workup included a normal CT scan and neck ultrasound. Cardiology plans to have the patient wear a 30-day heart monitor to evaluate for a cardiac rhythm problem. The patient has a history of obesity, a smoking history, asthma stable on Advair, hypercholesterolemia, obstructive sleep apnea with inability to tolerate CPAP, GERD, type 2 diabetes, and hypertension for which the patient is not on medication. Recent lab work showed a normal blood count without anemia, normal electrolytes and renal function, a blood sugar of 145 mg/dL, and a hemoglobin A1c of 6.3%. Liver function tests were mildly elevated, which is a chronic finding, and cholesterol remains high with an LDL of 136 mg/dL. Health Maintenance - The patient was strongly advised to st op smoking. - The patient reported having stopped dr inking beer for the past month. - Dietary modifications were discussed, including avoiding soda and juices due to high sugar content. - The patient declined an influenza vacc ination. Social History - Substance Use: The patient reports a h istory of smoking cigarettes and marijuana. - The patient reports consuming beer but has abstained for the past month. - Diet: The patient is trying to avoid s bernard and is drinking more juice. Results - Labs: - Complete blood count: Normal with no a nemia. - Electrolytes: Normal. - Renal function: Normal. - Blood sugar: 145 mg/dL. - Hemoglobin A1c: 6.3%. - Liver function test: Mildly elevated, which is not a new finding. - Cholesterol: High, with an LDL of 136 mg/dL. - Tests and Diagnostics: - CT scan: Normal. - Neck ultrasound: Normal. [facility] Medical History DMII (diabetes mellitus, type 2) History of renal calculi Obstructive sleep apnea Fatty liver Vitamin D deficiency Obesity (BMI 30-39.9) Mood disorder Asthma Hypercholesterolemia Alcohol abuse Tobacco abuse Surgical History History of removal of cyst History of tonsillectomy Family History Father CAD (coronary artery disease) CVD (cardiovascular disease) Hypertension Mother Hypertension Maternal Grandfather Colon cancer Maternal Uncle Myocardial infarction Social History (Reviewed 02/18/25 @ 09:51 by MIRANDA Herr Household Members: Spouse and Children Housing: House Do you presently have visiting nurse or other home services: No Unable to assess alcohol history related to: Unknown Alcohol intake: current Alcohol intake frequency: a few times a month Alcohol type: beer Comment: once a week 7-8 beers - discussed about stopping Patient Tobacco Use Status: Current everyday Tobacco user Tobacco use type: Cigarette Cigarette Packs Per Day: 0.25 Cigarettes Per Day: 5 Years Smoked: 30 Packs Per Year: 8 Packs per year/per ci.50 e-Cigarette/Vaping Use: Never Used Second Hand Smoke Exposure: Yes Substance Use Type: Marijuana Advance Directives Date on File: 01/07/25 service: No Current occupational status: employed Sexual orientation: Straight/Heterosexual Cognitive needs: No Hearing needs: No Vision needs: No Questionnaire PHQ-9 Over the last 2 weeks, how often have you been bothered by any of the following problems? 1. Little interest or pleasure in doing things: not at all 2. Feeling down, depressed, or hopeless: not at all 3. Trouble falling or staying asleep, or sleeping too much: not at all 4. Feeling tired or having little energy: not at all 5. Poor appetite or overeating: not at all 6. Feeling bad about yourself - or that you are a failure or have let yourself or your family down: not at all 7. Trouble concentrating on things, such as reading the newspaper or watching television: not at all 8. Moving or speaking so slowly that other people could have noticed. Or the opposite - being so fidgety or restless that you have been moving around a lot m ore than usual: not at all 9. Thoughts that you would be better off or of hurting yourself in some way: not at all Total score: 0 Depression Screening Interpretation: Negative Depression Screening Done: Yes Source: Developed by Drs. Raffi Leung, Maria Esther Finney, Fam Camilo and colleagues, with an educational sawyer from [employer] Thrive Questionnaire Date Thrive assessed: 10/22/24 I am a: Patient What is your living situation today?: I have a steady place to live Within the past 12 months, did the food you bought not last and you didn't have the money to get more?: Never true Within the past 12 months, did you worry whether your food would run out before you got money to buy more?: Never true Do you have trouble paying for medicines?: No Do you have trouble getting transportation to medical appointments?: No Do you have trouble paying your heating and electricity bill?: No Do you have trouble taking care of your child, family member or friend?: No Do you have trouble with day-to-day activities such as bathing, preparing meals, shopping, managing finances, etc.?: No Are you currently unemployed and looking for a job?: No Are you interested in more education?: No Please select the resources that you would like help with: None Currently or been in a relationship where the following occur: No concerns reported THRIVE Score: 0 AUDIT C Alcohol Use Questionnaire (AUDIT-C) 1. How often do you have a drink containing alcohol?: Monthly or less 2. How many drinks containing alcohol do you have on a typical day when you are drinking?: 1 or 2 3. How often do you have six or more drinks on one occasion?: Never Total Score: 1 SIMON-7 AMB Questionnaire SIMON-7 Date SIMON - 7 assessed: 10/22/24 Feeling nervous, anxious, or on edge: 0 = Not at all Not being able to stop or control worryin = Not at all Worrying too much about different things: 0 = Not at all Trouble relaxin = Not at all Being so restless that it is hard to sit still: 0 = Not at all Becoming easily annoyed or irritable: 0 = Not at all Feeling afraid as if something awful might happen: 0 = Not at all Total SIMON-7 score (0-4 normal; 5-9 mild; 10-14 moderate; 15-21 severe): 0 Source: Developed by Drs. Raffi Leung, Maria Esther Finney, Fam Camilo and colleagues, with an educational sawyer from [employer] Review of Systems Narrative Review of Systems - Neurological: Reports two episodes of syncope. - Cardiovascular: Denies chest pain or palpitations associated with syncopal episodes. - Respiratory: Reports severe coughing spells, which have preceded the syncopal episodes. - Gastrointestinal: Reports nausea preceding one syncopal event; denies vomiting. Physical exam (Primary Care) Vital Signs: Last Vital Signs Temp 97.3 F 02/18/25 09:48 Pulse 66 02/18/25 09:48 BP 124/86 02/18/25 09:48 Pulse Ox 96 02/18/25 09:48 Oxygen Delivery Method Room Air 02/18/25 09:48 BMI result Body Mass Index 32.6 Tobacco/Smoking Status: Tobacco use Status Tobacco use date assessed 02/18/25 02/18/25 09:52 Patient Tobacco Use Status Current everyday Tobacco 02/18/25 09:52 Tobacco use type Cigarette 02/18/25 09:52 e-Cigarette/Vaping Use Never Used 02/18/25 09:52 PHQ-9: PHQ-9 Score PHQ-9: Total score 0 02/18/25 10:09 Depression Screening Interpretation: Negative Thrive Assessment: Date of Thrive Assessment Date Thrive assessed 10/22/24 02/18/25 09:52 Currently or been in a relationship where the following occur: No concerns reported Narrative Physical Exam Const General: alert; No acute distress Eyes Conjunctivae: conjunctivae normal Resp Auscultation: clear to auscultation bilaterally Cardio Rate: regular rate Rhythm: regular rhythm GI Inspection: Yes normal to inspection Extrem General: Yes normal to inspection and No edema Coding Level of Care Code Complex visit Add On G2211 Diagnoses Syncope, unspecified syncope type R55 Syncope type: unspecified Type 2 diabetes mellitus with hyperglycemia, without long-term current use of insulin E11.65 Diabetes mellitus half-way insulin use: without half-way use Primary hypertension I10 Hypertension type: primary hypertension Hypercholesterolemia E78.00 Obesity (BMI 30-39.9) E66.9 Gastroesophageal reflux disease without esophagitis K21.9 Esophagitis presence: without esophagitis Mild intermittent asthma without complication J45.20 Asthma complication type: uncomplicated Asthma persistence: intermittent Asthma severity: mild Obstructive sleep apnea G47.33 Tobacco abuse Z72.0 Assessment & Plan Assessment & Plan (1) Syncope: Code(s): R55 - Syncope and collapse Category: Medical Qualifiers: Syncope type: unspecified Qualified Code(s): R55 - Syncope and collapse Plan: Patient is presently undergoing workup cardiac-pinzon (2) Type 2 diabetes mellitus with hyperglycemia: Comment: Eye and lasik Code(s): E11.65 - Type 2 diabetes mellitus with hyperglycemia Category: Medical Qualifiers: Diabetes mellitus half-way insulin use: without half-way use Qualified Code(s): E11.65 - Type 2 diabetes mellitus with hyperglycemia Plan: Decrease the amount of carbohydrate intake, pasta, bread, rice and potatoes are all sugar and that is aside from all the sweet stuff, remember that fruits are good but they are Sweet also. Hemoglobin A1c goal of less than 6.5. Patient is good (3) Hypertension: Code(s): I10 - Essential (primary) hypertension Category: Medical Qualifiers: Hypertension type: primary hypertension Qualified Code(s): I10 - Essential (primary) hypertension Plan: Continue with blood pressure medication. Decrease salt intake and exercise no medication for blood pressure (4) Hypercholesterolemia: Code(s): E78.00 - Pure hypercholesterolemia, unspecified Category: Medical Plan: Avoid fried foods, chicken skin, eggs, butter margarine, pastries and meat. Be it pork or beef they have a lot of cholesterol LDL goal of less than 100 and triglyceride of less than 150 (5) Obesity (BMI 30-39.9): Code(s): E66.9 - Obesity, unspecified Category: Medical Plan: Diet and exercise (6) GERD (gastroesophageal reflux disease): Code(s): K21.9 - Gastro-esophageal reflux disease without esophagitis Category: Medical Qualifiers: Esophagitis presence: without esophagitis Qualified Code(s): K21.9 - Gastro-esophageal reflux disease without esophagitis Plan: Avoid the foods that causes that usually spicy foods, tomato products, juices, coffee, soda and foods that your sensitive to. After eating do not lie down, allow 3-4 hours before in lie down. And keep the head of bed above 30 degrees to avoid the acid from going up. (7) Asthma: Comment: PFT June 2018 Code(s): J45.909 - Unspecified asthma, uncomplicated Category: Medical Qualifiers: Asthma complication type: uncomplicated Asthma persistence: intermittent Asthma severity: mild Qualified Code(s): J45.20 - Mild intermittent asthma, uncomplicated Plan: Stable on Advair (8) Obstructive sleep apnea: Comment: Cannot tolerate CPAP Code(s): G47.33 - Obstructive sleep apnea (adult) (pediatric) Category: Medical Plan: Discussed about the problem of sleep apnea (9) Tobacco abuse: Code(s): Z72.0 - Tobacco use Category: Medical Plan: Patient is strongly advised to stop smoking patient point Plan Plan Patient was informed and verbally consented to the use of an ambient scribe for clinic note documentation during this visit. 1. Syncope The patient presented for follow-up of two syncopal episodes. One occurred after alcohol and marijuana use and was associated with coughing, and the other was associated with coughing alone. Initial workup including a CT scan and neck ultrasound were normal. Cough syncope is a possibility, but cardiac etiologies must be excluded first. The plan is to continue with the cardiology workup, wh ich includes a 30-day heart monitor to assess for arrhythmias. 2. Hypercholesterolemia The patient's cholesterol is elevated with an LDL of 136 mg/dL, which is above the goal of less than 100 mg/dL. The patient agreed to start medication, and a prescription for atorvastatin to be taken once daily was sent. A follow-up lipid panel will be checked in 3 months. 3. Asthma The patient's asthma is reportedly stable on Advair, but the patient requested a refill. A prescription for an inhaler was submitted. The patient was advised to inform the clinic if there are insurance coverage issues. 4. Type 2 Diabetes Mellitus The patient's diabetes is well-controlled, with a recent hemoglobin A1c of 6.3%, which meets the goal of less than 6.5%. Advised to continue with dietary management, including avoiding sugary drinks like juice and soda. 5. Tobacco Use Disorder The patient is a current smoker, and the associated coughing is a likely contributor to the syncopal episodes. The patient was strongly advised to stop smoking. Discussion Notes I reviewed the workup for the patient's two syncopal episodes, explaining that while initial results like the CT scan and neck ultrasound were normal, we still need to rule out a cardiac cause. I discussed the possibility of cough syncope, a condition where one passes out from coughing, but clarified this is a diagnosis of exclusion. I explained that the 30-day heart monitor planned by cardiology is to check for a heart rhythm problem. We discussed the patient's high cholesterol, with an LDL of 136, and the need to lower it to reduce the risk of blocked blood vessels. The patient agreed to start atorvastatin, and I sent in the prescription. I also sent in a refill for the asthma inhaler. We reviewed lifestyle modifications, including the importanc e of smoking cessation and avoiding sugary drinks. I advised the patient to follow up in 3 months to recheck the cholesterol. Patient Instructions - Take your new cholesterol medication, atorvastatin, once a day. - I have sent a prescription for your asthma inhaler refill to the pharmacy. - If your insurance gives you a problem with the inhaler, please let us know so we can prescribe one they will cover. - It is very important for your health that you stop smoking. - Continue to avoid drinking alcohol. - Be careful with sugary drinks like juices and soda, as they contain a lot of sugar. - Make sure to follow up with the cardiology department to get your 30-day heart monitor. - We will recheck your cholesterol with a blood test in 3 months. Orders: Orders Comprehensive Met. Panel 3 Months E78.00 - Pure hypercholesterolemia, unspecified Hemoglobin A1c 3 Months E11.65 - Type 2 diabetes mellitus with hyperglycemia Lipid Panel 3 Months E78.00 - Pure hypercholesterolemia, unspecified Medications: New albuterol sulfate 90 mcg/actuation (Ventolin HFA) 2 puffs inhalation Q6H PRN 8.5 grams 0RF shortness of breath or wheezing Refilled atorvastatin 10 mg PO DAILY 30 tabs 3RF E78.00 - Pure hypercholesterolemia, unspecified
--- OUTSIDE RECORDS SUMMARY | 2025-02-18 10:28 | XMS_ITS | Clinical Summary ---
Author Organization [facility] Address [address] [place] [address] Care Team Providers Care Boarding [employer] Cattery Operator Name Role Phone Ed Agarwal MD Primary Care Provider [phone] Allergies Active Allergy Reactions Criticality Noted Date [...] Vaccine ( - 2023- season) 2024 Insurance [facility] Advance Directives * Full Code (Latest Code Status on File) Date Activated Date Inactivated Comments 09/28/2022 10:31 PM Care Teams Boarding [employer] Cattery Operator Relationship Specialty Start Date End Date Ed Agarwal MD [address] [place], [place] [address] PCP - General Internal Medicine 09/28/22
== END 2025-02-18 10:45 | disposition home or self-care (01) ==
LOC: HO.HMCH 09:46
PROVIDERS: PCP Internal Medicine; Visit Provider Internal Medicine
DX: R55 Syncope and collapse (principal); E11.65 Type 2 diabetes mellitus with hyperglycemia; I10 Essential (primary) hypertension; E78.00 Pure hypercholesterolemia, unspecified; E66.9 Obesity, unspecified; K21.9 Gastro-esophageal reflux disease without esophagitis; J45.20 Mild intermittent asthma, uncomplicated; G47.33 Obstructive sleep apnea (adult) (pediatric); Z72.0 Tobacco use

== ENCOUNTER → 2025-02-18 09:45 | Outpatient (BNVA) | payer OTHER, SELFPAY | PROVIDERS: PCP Internal Medicine; Visit Provider Internal Medicine | DX: R55 Syncope and collapse (principal); E66.9 Obesity, unspecified; E11.65 Type 2 diabetes mellitus with hyperglycemia; I10 Essential (primary) hypertension; E78.00 Pure hypercholesterolemia, unspecified; K21.9 Gastro-esophageal reflux disease without esophagitis; J45.20 Mild intermittent asthma, uncomplicated; G47.33 Obstructive sleep apnea (adult) (pediatric); Z87.891 Personal history of nicotine dependence; Z91.81 History of falling; Z68.32 Body mass index [BMI] 32.0-32.9, adult | CPT/HCPCS: 99212 ==

== ENCOUNTER → 2025-03-11 13:57 | Outpatient (REF) | payer OTHER, SELFPAY ==
--- OUTSIDE RECORDS SUMMARY | 2025-03-11 19:22 | XMS_ITS | Clinical Summary ---
Author Organization [facility] Address [address] [place] [address] Care Team Providers Care Revenue Specialist Name Role Phone Ed Agarwal MD Primary Care Provider [phone] Allergies Active Allergy Reactions Criticality Noted Date [...] Vaccine ( - 2023- season) 2024 Insurance [facility] Advance Directives * Full Code (Latest Code Status on File) Date Activated Date Inactivated Comments 09/28/2022 10:31 PM Care Teams Revenue Specialist Relationship Specialty Start Date End Date Ed Agarwal MD [address] [place], [place] [address] PCP - General Internal Medicine 09/28/22
== END ==
LOC: HO.CARD 13:57
PROVIDERS: PCP Internal Medicine; Visit Provider Internal Medicine
DX: R55 Syncope and collapse (principal)
CPT/HCPCS: 93270

== ENCOUNTER → 2025-03-11 14:00 | Outpatient (BNV) | payer OTHER, SELFPAY | PROVIDERS: PCP Internal Medicine; Visit Provider Internal Medicine | DX: R55 Syncope and collapse (principal) | CPT/HCPCS: 93272 ==